=== PATIENT | male | born 1945 | race Caucasian/White ===

== ENCOUNTER 2018-01-14 11:38 | Inpatient (IN) | payer OTHER, MEDICARE ==
[~2018-01-14] VITALS: Ht 180.3 cm; Wt 94.8 kg
[~2018-01-14 11:38] MED LIST: ASPIRIN EC325 M2 PO; ATORVASTATIN CA80 M1 PO; FIBERCON625 M1 PO; LEVEMIR100 UNIT/1 SC; LORAZEPAM0.5 M1 PO; METFORMIN HCL750 M1 PO; METOPROLOL SUC100 M2 PO; NOVOLOG100 UNIT/2 SC; REGLAN10 M1 PO; SYMBICORT 16010.2 GM INH; XOPENEX HFA15 GM INH; ZOLPIDEM TARTRA10 M1 PO
--- NOTE | 2018-01-14 12:14 | ED GI/GU/ABDOMINAL COMPLAINT ---
History of Present Illness General Chief Complaint: Low Back Pain/Injury Stated Complaint: SENT FROM WALK IN FROM WALK IN FOR LT LOWER B/P Source: patient Exam Limitations: no limitations Vital Signs & Intake/Output Vital Signs & Intake/Output Vital Signs Date Time Temp Pulse Resp B/P B/P Pulse O2 O2 Flow FiO2 Mean Ox Delivery Rate 01/15 0100 150/78 01/14 2322 62 174/100 01/14 2308 98.7 62 18 174/100 97 01/14 1905 98.7 72 18 154/73 97 Room Air Room Air 01/14 1837 97.5 67 18 133/68 97 Room Air Room Air 01/14 1600 98.3 66 18 196/88 01/14 1415 98.3 66 18 208/92 98 Room Air 01/14 1148 96.3 64 18 166/80 97 Room Air ED Intake and Output 01/15 0000 01/14 1200 Intake Total 3100 Output Total 220 Balance 2880 Intake, IV 3000 Intake, Oral 100 Output, Urine 220 Patient 215 lb 210 lb Weight Weight Reported by Patient Measurement Method Allergies Coded Allergies: No Known Allergies (03/12/16) Reconcile Medications Aspirin (Ecotrin*) 325 MG TABLET.DR 1 TAB PO DAILY HEART/BLOOD (Reported) Atorvastatin Calcium 80 MG TABLET 0.5 TAB PO DAILY CHOLESTEROL (Reported) Budesonide/Formoterol Fumarate (Symbicort 160-4.5 Mcg Inhaler) 10.2 GM HFA.AER.AD 2 PUF INH BID COPD (Reported) Calcium Polycarbophil (Fibercon) 625 MG TABLET 1 TAB PO DAILY SUPPLEMENT ( Reported) Insulin Aspart (Novolog) 100 UNIT/1 ML VIAL DIABETES (Reported) Insulin Detemir (Levemir) 100 UNIT/1 ML VIAL 10 UNITS SC QAM DIABETES ( Reported) Levalbuterol Tartrate (Xopenex Hfa) 15 GM HFA.AER.AD 2 PUF INH PRN COPD ( Reported) Lorazepam 0.5 MG TABLET 1 TAB PO BIDP PRN SLEEP (Reported) Metformin HCl (Metformin HCl ER) 750 MG TAB.ER.24H 2 TAB PO QPM DIABETES ( Reported) Metoclopramide HCl (Reglan) 10 MG TABLET 1 TAB PO BID GASTOPARESIS (Reported) 30 minutes before meals and bedtime Metoprolol Succinate 100 MG TAB.ER.24H 1 TAB PO DAILY HEART/BP (Reported) Zolpidem Tartrate 10 MG TABLET 1 TAB PO QPMP SLEEP (Reported) Triage Note: PT TO ER C/C L FLANK PAIN AND NAUSEA X 1 DAY. DENIES URINARY PAIN/FREQUENCY. DENIES HEMATURIA. Triage Nurses Notes Reviewed? yes Onset: Abrupt Duration: day(s): (1), constant, continues in ED, getting worse Timing: single episode today Quality/Severity: cramping Severity Numbers: 8 Location: left flank, left upper quadrant Radiation: back Activities at Onset: sleep Prior Abdominal Problems: none Past Sexual History: Unobtainable at this time No Modifying Factors: none Modifying Factors: Worsens With: movement, palpation. Associated Symptoms: abdominal pain, nausea/vomiting HPI: 72-year-old male past medical history of hypertension, hyponatremia, diabetes, coronary artery disease, COPD presents for evaluation of left flank pain and nausea vomiting. Patient states symptoms started last night. Woke him up from sleep. The pain is located in the left flank and radiates into the left abdomen and left back. Pain described as cramping that is intermittently sharp. Associated with nausea and vomiting. He reports he took Tylenol without improvement. No fevers urinary symptoms hematuria chest pain shortness of breath. No history of kidney stones. There is no trauma no numbness tingling no bowel or bladder dysfunction. No difficulty urinating. (Velasquez Napier) Past History Travel History Traveled to [place] past 21 day No Medical History Any Pertinent Medical History? see below for history Neurological: RESTLESS LEG EENT: SLEEP APNEA Cardiovascular: CAD, hypertension, hyperlipidemia, FEM/POP BYPASS BILATERAL PVC 'S Respiratory: COPD, emphysema, LUNG NODULES Gastrointestinal: GERD, COLON POLYPS GASTROPARESIS Renal: benign prost hyperplasia Musculoskeletal: osteoarthritis Psychiatric: insomnia Endocrine: diabetes Blood Disorders: anemia Surgical History Surgical History: non-contributory Psychosocial History What is your primary language Samoan Tobacco Use: Quit >30 days ago Family History Hx Contributory? No (Velasquez Napier) Review of Systems Review of Systems Constitutional: Reports: no symptoms. EENTM: Reports: no symptoms. Respiratory: Reports: no symptoms. Cardiovascular: Reports: no symptoms. GI: Reports: see HPI, abdominal pain, nausea, vomiting. Genitourinary: Reports: no symptoms. Musculoskeletal: Reports: see HPI, back pain. Skin: Reports: no symptoms. Neurological/Psychological: Reports: no symptoms. Hematologic/Endocrine: Reports: no symptoms. Immunologic/Allergic: Reports: no symptoms. All Other Systems: Reviewed and Negative (Rakesh DIA,Velasquez) Physical Exam Physical Exam General Appearance: well developed/nourished, no apparent distress, alert, awake Head: atraumatic, normal appearance Eyes: Bilateral: normal appearance, PERRL, EOMI, normal inspection. Ears, Nose, Throat, Mouth: hearing grossly normal, moist mucous membrane Neck: normal inspection, supple, full range of motion Respiratory: normal breath sounds, chest non-tender, no respiratory distress, lungs clear Cardiovascular: regular rate/rhythm, normal peripheral pulses Peripheral Pulses: 2+ radial (R), 2+ radial (L) Gastrointestinal: normal bowel sounds, soft, no organomegaly, tenderness (LEFT FLANK) Back: normal inspection, normal range of motion, LUMBAR PARAspinous muscles tender to palpation on the left Extremities: normal range of motion Neurologic/Psych: no motor/sensory deficits, awake, alert, oriented x 3, normal gait, normal mood/affect Skin: intact, normal color, warm/dry Core Measures ACS in differential dx? No Sepsis Present: No Sepsis Focused Exam Completed? No (Rakesh DIA,Velasquez) Progress Differential Diagnosis: AAA, appendicitis, biliary colic, bowel obstruction, cholecystitis, diverticulitis, gastritis, inflamm bowel dis, pancreatitis, peptic ulcer, PUD/GERD, pyelonephritis, SBO, ureterolithiasis, urinary retention , urethritis, UTI/pyelo Plan of Care: Orders Procedure Date/time Status Consistent Carbohydrate 1 01/15 B Active CBC WITHOUT DIFFERENTIAL 01/15 0600 Active BASIC ELECTROLYTES PLUS BUN&CR 01/15 0600 Active Change service to 01/15 0108 Active BLOOD CULTURE 01/14 2338 Active FingerStick- Glucose 01/14 2309 Complete Weight 01/14 2308 Active Vital Signs 01/14 2252 Active Teach/Educate 01/15 2252 Active Pain Treatment and Response 01/15 2252 Active Nutritional Intake, Monitor 01/15 2252 Active Isolation 01/15 2252 Active Intake & Output 01/15 2252 Active Patient Care Conference 01/15 2252 Active Activity/Ambulation 01/15 2252 Active Pathway - chart 01/14 2218 Active House Staff 01/14 2218 Active Patient Data 01/14 2218 Active Code Status 01/14 2218 Active CBC WITHOUT DIFFERENTIAL 01/143 Complete BASIC ELECTROLYTES PLUS BUN&CR 01/14 214 Complete URINE COLLECTION FROM OR 01/14 2108 Active LACTIC ACID 01/14 1650 Complete Bates, Insertion/Removal/Asses 01/14 1627 Complete CULTURE,URINE 01/14 162 Active Add-on Test (ER Only) 01/14 1348 Active LACTIC ACID 01/14 1227 Complete URINALYSIS 01/14 1211 Complete TROPONIN LEVEL 01/14 1211 Complete LIPASE 01/14 1211 Complete COMPREHENSIVE METABOLIC PANEL 01/14 1211 Complete CBC WITHOUT DIFFERENTIAL 01/14 1211 Complete EKG 01/14 1211 Active Intake & Output 01/14 1200 Active VTE Mechanical Prophylaxis 01/14 UNK Active FingerStick- Glucose 01/14 UNK Active Current Medications Sig/Juhi Start time Last Medication Dose Stop Time Status Admin Atorvastatin Calcium 40 MG 1700 01/15 1700 AC (Lipitor) Aspirin Buffered 325 MG DAILY 01/15 0900 AC (Ecotrin) Insulin Detemir 5 UNITS BID 01/15 0900 AC (Levemir) Lorazepam 0.5 MG BID PRN 01/15 0900 AC 01/14 (Ativan) 01/22 0859 2325 Metoclopramide HCl 10 MG BID 01/15 0900 AC (Reglan) Metoprolol Succinate 100 MG DAILY 01/15 0900 AC (Toprol Xl) Insulin Aspart 0 TIDAC 01/15 0800 AC (NovoLOG) Heparin Sodium 5,000 UNIT Q8 01/15 0600 AC (Porcine) Morphine Sulfate 2 MG Q6P PRN 01/14 2345 AC (MORPHINE SULFATE) Ondansetron HCl 4 MG Q6P PRN 01/14 2345 AC (Zofran) Ceftriaxone Sodium 1,000 MG DAILY 01/14 2330 AC 01/14 (Rocephin) 2322 Sodium Chloride 1,000 ML Q20H 01/14 2300 AC 01/14 (Normal Saline 0.9%) 01/15 1219 2312 Morphine Sulfate 2 MG Q4 PRN 01/14 2230 AC (MORPHINE SULFATE) Laboratory Tests 01/15/18 0640: Sodium Pending, Potassium Pending, Chloride Pending, Carbon Dioxide Pending, Anion Gap Pending, BUN Pending, Creatinine Pending, BUN/Creatinine Ratio Pending , CBC w Diff Pending, WBC Pending, RBC Pending, Hgb Pending, Hct Pending, MCV Pending, MCH Pending, MCHC Pending, RDW Pending, Plt Count Pending, MPV Pending 01/15/18 0050: Lactic Acid 1.4 01/15/18 005: Anion Gap 12, Estimated GFR 23 L, BUN/Creatinine Ratio 17.4, CBC w Diff NO MAN DIFF REQ, RBC 3.73 L, MCV 84.6, MCH 28.5, MCHC 33.6, RDW 14.0, MPV 8.8, Gran % 88.1 H, Lymphocytes % 7.5 L, Monocytes % 4.0, Eosinophils % 0.2, Basophils % 0.2, Absolute Granulocytes 7.3 H, Absolute Lymphocytes 0.6 L, Absolute Monocytes 0.3, Absolute Eosinophils 0, Absolute Basophils 0 01/14/18 1845: Urinalysis LIGHT H, Urine Color YEL, Urine Clarity HAZY H, Urine pH 6.0, Ur Specific [place] 1.025, Urine Protein 100 H, Urine Ketones NEG, Urine Nitrite NEG, Urine Bilirubin NEG, Urine Urobilinogen 0.2, Ur Leukocyte Esterase NEG, Ur Microscopic SEDIMENT EXAMINED, Urine RBC 25-50 H, Urine WBC 1-3 H, Ur Epithelial Cells FEW, Urine Hemoglobin LARGE H, Urine Glucose NEG 01/14/18 1227: Anion Gap 16, Estimated GFR 22 L, BUN/Creatinine Ratio 16.8, Glucose 175 H, Lactic Acid 1.8, Calcium 9.7, Total Bilirubin 0.4, AST 24, ALT 30, Alkaline Phosphatase 79, Troponin I < 0.01, Total Protein 8.0, Albumin 4.5, Globulin 3.5, Albumin/Globulin Ratio 1.3, Lipase 196, CBC w Diff NO MAN DIFF REQ, RBC 4.41 L, MCV 85.7, MCH 27.7, MCHC 32.3 L, RDW 13.9, MPV 8.3, Gran % 82.6 H, Lymphocytes % 8.5 L, Monocytes % 8.2, Eosinophils % 0.4, Basophils % 0.3, Absolute Granulocytes 8.6 H, Absolute Lymphocytes 0.9 L, Absolute Monocytes 0.9 H, Absolute Eosinophils 0, Absolute Basophils 0 Microbiology 01/15 50 BLOOD: Blood Culture - RECD 01/15 50 BLOOD: Blood Culture - RECD 01/15 2108 URINE OR: Urine Culture - RECD 01/14 1845 URINE ROUT: Urine Culture - RECD Patient seen and evaluated. He is reporting left flank pain and nausea and vomiting. He was sent in from an urgent care. Urgent care did a urinalysis which shows hematuria. Patient does appear to be intermittent pain. He took Tylenol without improvement. He was given 15 mg of IM Toradol. We'll check basic labs and a CT scan the pelvis look for kidney stones. Zofran for nausea. Blood work is back and shows evidence of acute kidney injury. Creatinine is 2.8 which is increased to 2 times His normal. Potassium is 5.8. No EKG changes. Calcium gluconate and Kayexalate ordered. Patient also receive IV fluids. Waiting on CT scan results. Patient is feeling much better after medications. He is resting comfortably. CT scan shows a large kidney stone in the left ureter. 1 cm in greatest dimension. Causing mild hydronephrosis.. Spoke with Dr. Crawley from urology who will take the patient to the OR for stenting. Patient is not able to give a urine yet. He feels like he needs to be but can' t. As a history of BPH. A Bates was placed to relieve possible obstruction however was found there is only small amount of urine in the bladder. Additional fluids ordered. Patient waiting to go the OR. PT Was taken to the OR with Dr. Crawley for stent placement. Diagnostic Imaging: Viewed by Me: CT Scan. Discussed w/RAD: CT Scan. Radiology Impression: PATIENT: SHO CISSE PRESENT AGE: 72 PATIENT ACCOUNT NO: [id number] : 45 LOCATION: [facility] ORDERING PHYSICIAN: Velasquez DIA SERVICE DATE: 01/14/18 EXAM TYPE: CAT - CT ABD & PELVIS W/O IV CONTRAS EXAMINATION: CT ABDOMEN AND PELVIS WITHOUT CONTRAST CLINICAL INFORMATION: Left lower back pain and hematuria COMPARISON: None TECHNIQUE: Multidetector volumetric imaging was performed from the superior aspect of the liver through the pubic symphysis. Sagittal and coronal reformatted images were obtained on the technologist's workstation. DLP: 633 mGy -cm FINDINGS: LUNG BASES: No acute findings. Atherosclerotic calcifications of coronary arteries and thoracic aorta. No pericardial or pleural effusion. LIVER, GALLBLADDER, AND BILIARY TREE: Unremarkable. PANCREAS: Unremarkable. SPLEEN: Unremarkable. ADRENAL GLANDS: Unremarkable. KIDNEYS AND URETERS: Bilateral perinephric edema. 0.9 cm hyperdense cortical lesion at the upper pole the right kidney has attenuation of approximately 80 Hounsfield units, consistent with a hyperdense cyst. No right renal calculi. There are cortical cysts at the posterior aspect of the interpolar region of the left kidney. Mild left hydronephrosis is caused by a 0.5 x 0.7 x 1 cm calculus, attenuation of 757 HU, of the ureteropelvic junction. The mid to distal left ureter is unremarkable. BLADDER: Unremarkable. GASTROINTESTINAL TRACT: Stomach is grossly unremarkable. Bowel loops are normal in caliber. Mild diverticulosis of the sigmoid colon. Appendix is normal. No ascites or pneumoperitoneum. ABDOMINAL WALL: Unremarkable. LYMPH NODES: Normal. VASCULAR: The atherosclerotic infrarenal abdominal aorta measures up to 2.8 cm AP diameter (sagittal reformatted image 77 of 143). PELVIC VISCERA: Prostate gland is grossly unremarkable. No pelvic free fluid. OSSEOUS STRUCTURES: There are hypertrophic degenerative changes of the spine. No suspicious bone lesions. IMPRESSION: Mild left hydronephrosis and perinephric edema caused by an obstructing 0.5 x 0.7 x 1 cm calculus of the ureteropelvic junction. DICTATED BY: Arjun Contreras MD DATE/TIME DICTATED:01/14 LENS FABRICATING MACHINE TENDER:RODY DATE/TIME TRANSCRIBED:01/14/181357 CONFIDENTIAL, DO NOT COPY WITHOUT APPROPRIATE AUTHORIZATION. Initial ED EKG: Sinus rhythm, probable left atrial abnormality, right bundle branch block, age indeterminate inferior infarct (Velasquez Napier) Departure Departure Disposition: STILL A PATIENT Condition: Stable Clinical Impression Primary Impression: Nephrolithiasis Secondary Impressions: Acute kidney injury, Hyperkalemia Referrals: Karri Martinez DO (PCP/Family) Departure Forms: Customer Survey General Discharge Information OR/GI Note Spoke With: Susan Crawley MD ED Treatment Decision: SHO CISSE requires urgent operative management or an emergent procedure that cannot be performed in the Emergency Room setting. Stenting of the left ureter. Patient has a 1 cm kidney stone left ureter causing mild hydronephrosis Transport To: [facility] (Velasquez Napier) PA/FENCE POST DRIVER Co-Sign Statement Statement: ED Attending supervision documentation- X I saw and evaluated the patient. I have also reviewed all the pertinent lab results and diagnostic results. I agree with the findings and the plan of care as documented in the PA's/FENCE POST DRIVER's documentation. L flank pain with obstructing stone 1 cm [] I have reviewed the ED Record and agree with the PA's/FENCE POST DRIVER's documentation. [] Additions or exceptions (if any) to the PAs/FENCE POST DRIVER's note and plan are summarized below: [] (Omar MCCOY,Blake)
[2018-01-14 12:39] LABS: ABSOLUTE BASOPHIL COUNT 0 /CUMM (0.0-0.2); ABSOLUTE EOSINOPHIL COUNT 0 /CUMM (0.0-0.7); ABSOLUTE GRANULOCYTE CT 8.6 /CUMM (1.4-6.5); ABSOLUTE LYMPH COUNT 0.9 /CUMM (1.2-3.4); ABSOLUTE MONOCYTE COUNT 0.9 /CUMM (0.10-0.60); BASOPHIL % 0.3 % (0.0-2.0); EOSINOPHIL % 0.4 % (0-5); HEMATOCRIT 37.8 % (42-52); MEAN CORPUSCULAR HGB 27.7 PG (27.0-31.0); MEAN CORPUSCULAR HGB CONC 32.3 G/DL (33.0-37.0); MEAN CORPUSCULAR VOLUME 85.7 FL (80.0-94.0); MEAN PLATELET VOLUME 8.3 FL (7.4-10.4); PLATELET COUNT 216 /CUMM (130-400); RBC DISTRIBUTION WIDTH 13.9 % (11.5-14.5); RED BLOOD CELL CT 4.41 /CUMM (4.70-6.10); WHITE BLOOD CELL COUNT 10.4 /CUMM (4.8-10.8)
[2018-01-14 12:40] LABS: GRANULOCYTE % 82.6 % (42.2-75.2)
--- NOTE | 2018-01-14 14:10 | CT SCAN REPORT ---
EXAMINATION: CT ABDOMEN AND PELVIS WITHOUT CONTRAST CLINICAL INFORMATION: Left lower back pain and hematuria COMPARISON: None TECHNIQUE: Multidetector volumetric imaging was performed from the superior aspect of the liver through the pubic symphysis. Sagittal and coronal reformatted images were obtained on the technologist's workstation. DLP: 633 mGy-cm FINDINGS: LUNG BASES: No acute findings. Atherosclerotic calcifications of coronary arteries and thoracic aorta. No pericardial or pleural effusion. LIVER, GALLBLADDER, AND BILIARY TREE: Unremarkable. PANCREAS: Unremarkable. SPLEEN: Unremarkable. ADRENAL GLANDS: Unremarkable. KIDNEYS AND URETERS: Bilateral perinephric edema. 0.9 cm hyperdense cortical lesion at the upper pole the right kidney has attenuation of approximately 80 Hounsfield units, consistent with a hyperdense cyst. No right renal calculi. There are cortical cysts at the posterior aspect of the interpolar region of the left kidney. Mild left hydronephrosis is caused by a 0.5 x 0.7 x 1 cm calculus, attenuation of 757 HU, of the ureteropelvic junction. The mid to distal left ureter is unremarkable. BLADDER: Unremarkable. GASTROINTESTINAL TRACT: Stomach is grossly unremarkable. Bowel loops are normal in caliber. Mild diverticulosis of the sigmoid colon. Appendix is normal. No ascites or pneumoperitoneum. ABDOMINAL WALL: Unremarkable. LYMPH NODES: Normal. VASCULAR: The atherosclerotic infrarenal abdominal aorta measures up to 2.8 cm AP diameter (sagittal reformatted image 77 of 143). PELVIC VISCERA: Prostate gland is grossly unremarkable. No pelvic free fluid. OSSEOUS STRUCTURES: There are hypertrophic degenerative changes of the spine. No suspicious bone lesions. IMPRESSION: Mild left hydronephrosis and perinephric edema caused by an obstructing 0.5 x 0.7 x 1 cm calculus of the ureteropelvic junction.
--- NOTE | 2018-01-14 19:34 | Cons- Urology ---
General Information and HPI Consulting Request Date of Consult: 01/14/18 Requested By: Chema Reason for Consult: left flank pain Source of Information: patient Exam Limitations: no limitations History of Present Illness: 72yo male with a PMH hyperlipidemia, hypertension, diabetes, coronary artery disease and gastroesophageal reflux with no history of nephrolithiasis who presented to the ER due to severe left flank pain 10 out of 10 with nausea and vomiting only in the ER after receiving pain medicine. He had a CAT scan which showed a 5 mm UPJ obstructing stone. He has never had kidney stones before and admits to only drinking coffee. His creatinine was elevated at 2.2 as well as his potassium. He was placed with the Bates and only 2 ounces was emptied. He has no history of benign prostatic hypertrophy or any other urologic issues. He does admit to smoking a pack a day for 50 years and quit 3 years ago however. He has never been to a urologist as he has had no prostate or kidney stone issues. He does admit to a penile cyst that does not bother him. Allergies/Medications Allergies: Coded Allergies: No Known Allergies (03/12/16) Home Med List: Aspirin (Ecotrin*) 325 MG TABLET.DR 1 TAB PO DAILY HEART/BLOOD (Reported) Atorvastatin Calcium 80 MG TABLET 0.5 TAB PO DAILY CHOLESTEROL (Reported) Budesonide/Formoterol Fumarate (Symbicort 160-4.5 Mcg Inhaler) 10.2 GM HFA.AER.AD 2 PUF INH BID COPD (Reported) Calcium Polycarbophil (Fibercon) 625 MG TABLET 1 TAB PO DAILY SUPPLEMENT ( Reported) Insulin Aspart (Novolog) 100 UNIT/1 ML VIAL DIABETES (Reported) Insulin Detemir (Levemir) 100 UNIT/1 ML VIAL 10 UNITS SC QAM DIABETES ( Reported) Levalbuterol Tartrate (Xopenex Hfa) 15 GM HFA.AER.AD 2 PUF INH PRN COPD ( Reported) Lorazepam 0.5 MG TABLET 1 TAB PO BIDP PRN SLEEP (Reported) Metformin HCl (Metformin HCl ER) 750 MG TAB.ER.24H 2 TAB PO QPM DIABETES ( Reported) Metoclopramide HCl (Reglan) 10 MG TABLET 1 TAB PO BID GASTOPARESIS (Reported) 30 minutes before meals and bedtime Metoprolol Succinate 100 MG TAB.ER.24H 1 TAB PO DAILY HEART/BP (Reported) Zolpidem Tartrate 10 MG TABLET 1 TAB PO QPMP SLEEP (Reported) Current Medications: Current Medications Sig/Juhi Start time Last Medication Dose Route Stop Time Status Admin Calcium Gluconate 0 .STK-MED ONE 01/14 1731 DC IV Calcium Gluconate 1 GM ONCE ONE 01/14 1700 DC 01/14 Sodium Chloride 100 ML IV 01/14 1759 1742 Hydralazine HCl 0 .STK-MED ONE 01/14 1613 DC .ROUTE Hydralazine HCl 10 MG ONCE ONE 01/14 1445 DC 01/14 IV 01/14 1446 1600 Ketorolac 0 .STK-MED ONE 01/14 1223 DC Tromethamine .ROUTE Ketorolac 15 MG ONE ONE 01/14 1215 DC 01/14 Tromethamine IM 01/14 1216 1252 Ondansetron HCl 0 .STK-MED ONE 01/14 1223 DC PO Ondansetron HCl 4 MG ONCE ONE 01/14 1215 DC 01/14 PO 01/14 1216 1252 Sodium Chloride 1,000 ML BOLUS ONE 01/14 1830 DC 01/14 IV 01/14 1929 1852 Sodium Chloride 1,000 ML BOLUS ONE 01/14 1345 DC 01/14 IV 01/14 1444 1357 Sodium Chloride 1,000 ML BOLUS ONE 01/14 1230 DC 01/14 IV 01/14 1329 1252 Sodium Polystyrene 0 .STK-MED ONE 01/14 1731 DC Sulfonate .ROUTE Sodium Polystyrene 60 ML ONCE ONE 01/14 1700 DC 01/14 Sulfonate PO 01/14 1701 1742 Past History Medical History Neurological: NONE, RESTLESS LEG EENT: SLEEP APNEA Cardiovascular: CAD, hypertension, hyperlipidemia, FEM/POP BYPASS BILATERAL PVC 'S Respiratory: COPD, emphysema, LUNG NODULES Gastrointestinal: GERD, COLON POLYPS GASTROPARESIS Hepatic: NONE Renal: NONE (CRI) Musculoskeletal: osteoarthritis Psychiatric: insomnia Endocrine: diabetes Blood Disorders: anemia Cancer(s): NONE 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 Home Who Do You Live With? spouse Services at Home: None Primary Language: Swedish Smoking Status: Former Smoker (1ppd for 50 yrs) ETOH Use: occasional use Illicit Drug Use: denies illicit drug use Functional Ability ADLs Independent: dressing, eating, toileting, bathing. Ambulation: independent IADLs Independent: shopping, housework, finances, food prep, telephone, transportation , medication admin. Employment History Employment: Retired Retired? yes Review of Systems Review of Systems Constitutional: Reports: see HPI. EENTM: Reports: no symptoms. Cardiovascular: Reports: no symptoms. Respiratory: Reports: no symptoms. GI: Reports: no symptoms. Genitourinary: Reports: no symptoms. Musculoskeletal: Reports: back pain. Skin: Reports: no symptoms. Neurological/Psychological: Reports: no symptoms. Hematologic/Endocrine: Reports: no symptoms. Immunologic/Allergic: Reports: no symptoms. Exam & Diagnostic Data Vital Signs and I&O Vital Signs Date Time Temp Pulse Resp B/P B/P Pulse O2 O2 Flow FiO2 Mean Ox Delivery Rate 01/14 1905 98.7 72 18 154/73 97 Room Air Room Air 01/14 1837 97.5 67 18 133/68 97 Room Air Room Air 01/14 1600 98.3 66 18 196/88 01/14 1415 98.3 66 18 208/92 98 Room Air 01/14 1148 96.3 64 18 166/80 97 Room Air Intake & Output 01/14 1600 01/14 0800 01/14 0000 01/13 1600 01/13 0800 01/13 0000 Intake Total 2000 Output Total Balance 2000 Intake, IV 2000 Patient 95.254 kg Weight Weight Reported by Patient Measurement Method Physical Exam General Appearance: well developed/nourished, no apparent distress, alert, awake , comfortable Head: atraumatic, normal appearance Eyes: Bilateral: normal appearance. Ears, Nose, Throat: normal pharynx Neck: normal inspection Respiratory: no respiratory distress Gastrointestinal: soft, non-tender Rectal: deferred Back: normal inspection Extremities: normal inspection Neurologic/Psych: awake, alert, oriented x 3 Cranial Nerves: normal hearing, normal speech Skin: intact, normal color, warm/dry Reproductive: Normal male genitalia (penile cyst) Last 24 Hours of Labs: Laboratory Tests 01/14 01/14 1845 1227 Chemistry Sodium (137 - 145 mmol/L) 137 Potassium (3.5 - 5.1 mmol/L) 5.8 H Chloride (98 - 107 mmol/L) 100 Carbon Dioxide (22 - 30 mmol/L) 22 Anion Gap (5 - 16) 16 BUN (9 - 20 mg/dL) 47 H Creatinine (0.7 - 1.2 mg/dL) 2.8 H Estimated GFR (>60 ml/min) 22 L BUN/Creatinine Ratio (7 - 25 %) 16.8 Glucose (65 - 99 mg/dL) 175 H Lactic Acid (0.7 - 2.1 mmol/L) 1.8 Calcium (8.4 - 10.2 mg/dL) 9.7 Total Bilirubin (0.2 - 1.3 mg/dL) 0.4 AST (17 - 59 U/L) 24 ALT (21 - 72 U/L) 30 Alkaline Phosphatase (< 127 U/L) 79 Troponin I (<0.11 ng/ml) < 0.01 Total Protein (6.3 - 8.2 g/dL) 8.0 Albumin (3.5 - 5.0 g/dL) 4.5 Globulin (1.9 - 4.2 gm/dL) 3.5 Albumin/Globulin Ratio (1.1 - 2.2 %) 1.3 Lipase (23 - 300 U/L) 196 Hematology CBC w Diff NO MAN DIFF REQ WBC (4.8 - 10.8 /CUMM) 10.4 RBC (4.70 - 6.10 /CUMM) 4.41 L Hgb (14.0 - 18.0 G/DL) 12.2 L Hct (42 - 52 %) 37.8 L MCV (80.0 - 94.0 FL) 85.7 MCH (27.0 - 31.0 PG) 27.7 MCHC (33.0 - 37.0 G/DL) 32.3 L RDW (11.5 - 14.5 %) 13.9 Plt Count (130 - 400 /CUMM) 216 MPV (7.4 - 10.4 FL) 8.3 Gran % (42.2 - 75.2 %) 82.6 H Lymphocytes % (20.5 - 51.1 %) 8.5 L Monocytes % (1.7 - 9.3 %) 8.2 Eosinophils % (0 - 5 %) 0.4 Basophils % (0.0 - 2.0 %) 0.3 Absolute Granulocytes (1.4 - 6.5 /CUMM) 8.6 H Absolute Lymphocytes (1.2 - 3.4 /CUMM) 0.9 L Absolute Monocytes (0.10 - 0.60 /CUMM) 0.9 H Absolute Eosinophils (0.0 - 0.7 /CUMM) 0 Absolute Basophils (0.0 - 0.2 /CUMM) 0 Urines Urinalysis LIGHT H Urine Color (YEL,AMB,STR) YEL Urine Clarity (CLEAR) HAZY H Urine pH (5.0 - 8.0) 6.0 Ur Specific [place] (1.001 - 1.035) 1.025 Urine Protein (NEG,<30 MG/DL) 100 H Urine Ketones (NEG) NEG Urine Nitrite (NEG) NEG Urine Bilirubin (NEG) NEG Urine Urobilinogen (0.1 - 1.0 EU/dl) 0.2 Ur Leukocyte Esterase (NEG) NEG Ur Microscopic SEDIMENT EXAMINED Urine RBC (0 - 5 /HPF) 25-50 H Urine WBC (0 - 2 /HPF) 1-3 H Ur Epithelial Cells (NONE,FEW) FEW Urine Hemoglobin (NEG) LARGE H Urine Glucose (N MG/DL) NEG Imaging Results: CT scan with left 5mm UPJ stone with mild hydronephrosis Assessment/Plan Assessment/Plan This 72-year-old male with multiple medical problems who presented to the ER with left flank pain 10 out of 10 with nausea. This is his first renal colic episode and admits to only drinking coffee. He was given the risks benefits and alternatives of ureteroscopy with laser lithotripsy and stent placement. He is a severely dehydrated with elevated creatinine and potassium with minimal urine output all day. He had a Bates catheter placed and only 2 ounces were emptied. He was consented for left ureteroscopy with laser lithotripsy and stent placement all the risks benefits and alternatives were given. Consent was signed after questions were answered. Consult Acknowledgment - Thank you for your consult request.
--- NOTE | 2018-01-14 19:36 | Operative Report ---
Operative/Inv Procedure Report Surgery Date: 01/14/18 Name of Procedure: left ureteroscopy with stent placement Pre-Operative Diagnosis: left 10mm UPJ stone Post-Operative Diagnosis: Large bladder stone and left 1 cm UPJ stone with pus behind it Estimated Blood Loss: linnea Surgeon/Shake Splitter: Susan Crawley MD Anesthesia: laryngeal mask airway Drains: 6x26cm stent Specimens: urine culture from renal pelvis Complications: none Condition: stable Operative Indication: left renal colic severe and elevated CR and dehydrated with obstructing left UPJ stone Operative/Procedure Note Note: This is a 72-year-old male Fritz Sykes who was in the ER due to severe left flank pain with nausea. He has no history of kidney stones but on CAT scan was found to have a 1 cm UPJ stone with mild hydro-. He admits to only drinking coffee and minimal water. He denies any history of urinary tract infections or benign prostatic hypertrophy. Given his stone size, pain level and abnormal labs specifically, elevated creatinine and elevated potassium with multiple comorbidities it was deemed necessary to place a left ureteral stent at the least and possibly treat the kidney stone. He was given the risks benefits and alternatives of doing this and all questions were answered. He signed a consent and wished to proceed. He was taken to the operating room placed on the operating table in the supine position. Timeout was performed. IV Kefzol was given. LMA was started. He was placed in the dorsal lithotomy position and prepped and draped in the standard sterile fashion. Cystoscopy was performed and the bladder was globally inspected. He had a markedly diseased bladder with grade 3 trabeculation an abnormally located ureteral orifices. They were laterally displaced. The left ureteral orifices was attempted to be cannulated with a solo guidewire. However it repeatedly bent and would not move beyond the ureteral orifice. As a result a semirigid ureteroscope was then placed into the bladder and at the ureteral orifice it was gently placed into the ureteral orifice. It was successful and the ureteroscope was able to be passed up the distal ureter once the guidewire was placed through the ureteroscope into the renal pelvis with fluoroscopic guidance. Once this was done the semirigid ureteroscope was removed and a dual- lumen catheter was attempted to be passed to place a second wire. However the dual-lumen was not able to traverse the ureteral orifice. As result the inner sheath of the ureteral access sheath 25 cm was then placed over this solo wire and this was able to be placed under fluoroscopic guidance without difficulty. It was left in place to dilate the ureteral orifice at that. After doing so the inner sheath was placed into the outer sheath and then placed back up into the ureter and the ureteral orifice was dilated for a few minutes. The inner sheath and the wire was removed and the flexible digital ureteroscope was then placed through the sheath into the renal pelvis. The large white 10 mm stone was encountered at the UPJ and the scope moved beyond it into the renal pelvis. However it was so cloudy with pus and blood it was not able to be used to visualize the individual calyces. A urine culture was taken with the syringe through the flexible ureteroscope and this was sent for urine culture. As result a wire was placed at this time through the ureteroscope and the ureteroscope was removed along with the ureteral access sheath. The cystoscope was placed back in with the pusher of the stent and the wire was placed through this which through grade. This wire was then used with the cystoscope to place a 6 x 26 cm ureteral stent. This was done with fluoroscopic guidance it was seen to be in good position in the renal pelvis and so the wire was removed and distal control the stent was in the bladder. The stent was seen to be in good position fluoroscopically. The bladder was emptied. The patient was not left with the catheter. Patient tolerated the procedure well and was cleaned of the Betadine solution. He was transferred to the recovery room stable condition. Findings: Large whitish yellow bladder stone within a grade 3 trabeculated bladder Bladder lead placed left ureteral orifice with J hooking making it difficult to place a solo guidewire with the cystoscope left renal stone obstructing the UPJ with pus and blood behind it Discharge Disposition: PACU
--- NOTE | 2018-01-14 20:56 | PN- Urology ---
Subjective Subjective: Patient tolerated the cystoscopy ureteroscopy and stent placement. Patient is in no pain and awake after the surgery. Objective Vital Signs and I&Os Vital Signs Date Time Temp Pulse Resp B/P B/P Pulse O2 O2 Flow FiO2 Mean Ox Delivery Rate 01/14 1905 98.7 72 18 154/73 97 Room Air Room Air 01/14 1837 97.5 67 18 133/68 97 Room Air Room Air 01/14 1600 98.3 66 18 196/88 01/14 1415 98.3 66 18 208/92 98 Room Air 01/14 1148 96.3 64 18 166/80 97 Room Air Intake & Output 01/14 1600 01/14 0800 01/14 0000 01/13 1600 01/13 0800 01/13 0000 Intake Total 2000 Output Total Balance 1999 Intake, IV 2000 Patient 95.254 kg Weight Weight Reported by Patient Measurement Method Physical Exam: Patient is awake and alert lying in bed Abdomen soft nondistended nontender no Bates catheter in place Assessment/Plan Assessment/Plan Is a 72-year-old male with multiple comorbidities specifically diabetes, hypertension, hypercholesterolemia, coronary artery disease and gastroesophageal reflux disease with a left UPJ obstructing stone that was relieved with a left stent placement tonight. He had pus and blood behind the obstructing stone. Given his elevated creatinine and potassium due to severe dehydration and infected left urinary system, would recommend admission to medicine with IV fluid administered and antibiotics. Urine culture from the renal system was sent to the operating room. He should follow up with urology as an outpatient for elective stone surgery. This was explained to the patient and his daughter and son-in-law. He should remain on antibiotics for a full 10 days.
--- NOTE | 2018-01-14 21:02 | RADIOLOGY REPORT ---
EXAMINATION: C-arm imaging abdomen CLINICAL INDICATION: Left cyst cystoscopy, stent placement COMPARISON: CT abdomen pelvis 01/14/2018 TECHNIQUE: C-arm imaging abdomen. FINDINGS: Fluoroscopy time: 16 seconds Number of images: 1 Single spot view images obtained over the left renal area. Stent is not visualized in this spot image. No contrast present. The proximal left ureteral stone seen on the CT study of 01/14/2018 is not apparent IMPRESSION: Single spot view over the left renal area. No acute change.
--- NOTE | 2018-01-14 21:22 | History & Physical ---
Zoe Hay 01/14/182120: General Information and HPI MD Statement: I have seen and personally examined SHO CISSE and documented this H&P. The patient is a 72 year old M who presented with a patient stated chief complaint of [post-op]. Source of Information: patient Exam Limitations: no limitations History of Present Illness: 72yo male with a PMH hyperlipidemia on Lipitor, hypertension on metoprolol and lisinopril, diabetes on Levemir/insulin/metformin, coronary artery disease status post bypass on aspirin/Plavix, former smoker of one PPD for 50 years with pulmonary nodules and GERD with no history of nephrolithiasis/BPH presented to the ER due to severe left flank pain 10 out of 10 with nausea and vomiting. He had a CAT scan which showed a 5 mm UPJ obstructing stone, with elevated creatinine at 2.2 and elevated potassium at 5.8 around noon on 01/14. He was placed with the Bates and only 2 ounces was emptied. Patient was consented to the OR and underwent stent placement for left UPJ obstructing stone prior to this admission. Given patient's elevated creatinine and potassium due to severe dehydration and infected left urinary system, urology consult recommended admission to medicine with IV fluid administration and antibiotics. Urine culture was already sent from the OR. During our clinical interaction, patient denied fever/night sweat/weight change/ cough/SOB/Chest Pain/Palpitation/exercise intolerance/Abdominal pain/bowel movement abnormality, or other skin/musculoskeletal/neurological disorders/mood change/insomnia/dietary/appetite change. Allergies/Medications Allergies: Coded Allergies: No Known Allergies (03/12/16) Home Med list Aspirin (Ecotrin*) 325 MG TABLET.DR 1 TAB PO DAILY HEART/BLOOD (Reported) Atorvastatin Calcium 80 MG TABLET 0.5 TAB PO DAILY CHOLESTEROL (Reported) Budesonide/Formoterol Fumarate (Symbicort 160-4.5 Mcg Inhaler) 10.2 GM HFA.AER.AD 2 PUF INH BID COPD (Reported) Calcium Polycarbophil (Fibercon) 625 MG TABLET 1 TAB PO DAILY SUPPLEMENT ( Reported) Insulin Aspart (Novolog) 100 UNIT/1 ML VIAL DIABETES (Reported) Insulin Detemir (Levemir) 100 UNIT/1 ML VIAL 10 UNITS SC QAM DIABETES ( Reported) Levalbuterol Tartrate (Xopenex Hfa) 15 GM HFA.AER.AD 2 PUF INH PRN COPD ( Reported) Lorazepam 0.5 MG TABLET 1 TAB PO BIDP PRN SLEEP (Reported) Metformin HCl (Metformin HCl ER) 750 MG TAB.ER.24H 2 TAB PO QPM DIABETES ( Reported) Metoclopramide HCl (Reglan) 10 MG TABLET 1 TAB PO BID GASTOPARESIS (Reported) 30 minutes before meals and bedtime Metoprolol Succinate 100 MG TAB.ER.24H 1 TAB PO DAILY HEART/BP (Reported) Zolpidem Tartrate 10 MG TABLET 1 TAB PO QPMP SLEEP (Reported) Past History Travel History Traveled to [facility] past 21 day No Medical History Neurological: NONE, RESTLESS LEG EENT: SLEEP APNEA Cardiovascular: CAD, hypertension, hyperlipidemia, FEM/POP BYPASS BILATERAL PVC 'S Respiratory: COPD, emphysema, LUNG NODULES Gastrointestinal: GERD, COLON POLYPS GASTROPARESIS Hepatic: NONE Renal: NONE (CRI) Musculoskeletal: osteoarthritis Psychiatric: insomnia Endocrine: diabetes Blood Disorders: anemia Cancer(s): NONE HEAT TREAT INSPECTOR/Reproductive: NONE (penile cyst) Surgical History Surgical History: non-contributory (fem-bypass, 2 R, 1L) Past Family/Social History Psychosocial History Where do you live? Home Who Do You Live With? spouse Services at Home: None Primary Language: Palestinian Smoking Status: Former Smoker (1ppd for 50 yrs) ETOH Use: occasional use Illicit Drug Use: denies illicit drug use Functional Ability ADLs Independent: dressing, eating, toileting, bathing. Ambulation: independent IADLs Independent: shopping, housework, finances, food prep, telephone, transportation , medication admin. Sexual History Past Sexual History Unobtainable at this time Employment History Employment Retired Review of Systems Review of Systems Constitutional: Reports: see HPI. Exam & Diagnostic Data Last 24 Hrs of Vital Signs/I&O Vital Signs Date Time Temp Pulse Resp B/P B/P Pulse O2 O2 Flow FiO2 Mean Ox Delivery Rate 01/14 1905 98.7 72 18 154/73 97 Room Air Room Air 01/14 1837 97.5 67 18 133/68 97 Room Air Room Air 01/14 1600 98.3 66 18 196/88 01/14 1415 98.3 66 18 208/92 98 Room Air 01/14 1148 96.3 64 18 166/80 97 Room Air Intake & Output 01/14 1600 01/14 0800 01/14 0000 Intake Total 2000 Output Total Balance 1999 Intake, IV 2000 Patient 95.254 kg Weight Weight Reported by Patient Measurement Method Physical Exam General Appearance Alert, Oriented X3, Cooperative, No Acute Distress Skin No Rashes, No Breakdown, No Significant Lesion Skin Temp/Moisture Exam: Warm/Dry Sepsis Skin Exam (color): Normal for Ethnicity HEENT Atraumatic Neck Supple, No JVD Cardiovascular Regular Rate, with PVCs, systolic murmur Lungs Clear to Auscultation, Normal Air Movement Abdomen Soft, No Tenderness, No Hepatospenomegaly Neurological Normal Speech Extremities No Edema, Normal Pulses, No Tenderness/Swelling Last 24 Hrs of Labs/Hernandez: Laboratory Tests 01/14/181844: Urinalysis LIGHT H, Urine Color YEL, Urine Clarity HAZY H, Urine pH 6.0, Ur Specific [place] 1.025, Urine Protein 100 H, Urine Ketones NEG, Urine Nitrite NEG, Urine Bilirubin NEG, Urine Urobilinogen 0.2, Ur Leukocyte Esterase NEG, Ur Microscopic SEDIMENT EXAMINED, Urine RBC 25-50 H, Urine WBC 1-3 H, Ur Epithelial Cells FEW, Urine Hemoglobin LARGE H, Urine Glucose NEG 01/14/18 1227: Anion Gap 16, Estimated GFR 22 L, BUN/Creatinine Ratio 16.8, Glucose 175 H, Lactic Acid 1.8, Calcium 9.7, Total Bilirubin 0.4, AST 24, ALT 30, Alkaline Phosphatase 79, Troponin I < 0.01, Total Protein 8.0, Albumin 4.5, Globulin 3.5, Albumin/Globulin Ratio 1.3, Lipase 196, CBC w Diff NO MAN DIFF REQ, RBC 4.41 L, MCV 85.7, MCH 27.7, MCHC 32.3 L, RDW 13.9, MPV 8.3, Gran % 82.6 H, Lymphocytes % 8.5 L, Monocytes % 8.2, Eosinophils % 0.4, Basophils % 0.3, Absolute Granulocytes 8.6 H, Absolute Lymphocytes 0.9 L, Absolute Monocytes 0.9 H, Absolute Eosinophils 0, Absolute Basophils 0 Microbiology 01/15 2108 URINE OR: Urine Culture - COLB 01/14 1845 URINE ROUT: Urine Culture - RECD Assessment/Plan Assessment: 72yo male with a PMH hyperlipidemia on Lipitor, hypertension on metoprolol and lisinopril, diabetes on Levemir/insulin/metformin, coronary artery disease status post bypass on aspirin/Plavix, former smoker of one PPD for 50 years with pulmonary nodules and GERD with no history of nephrolithiasis/BPH presented to the ER due to severe left flank pain 10 out of 10 with nausea and vomiting. He had a CAT scan which showed a 5 mm UPJ obstructing stone, with elevated creatinine at 2.2 and elevated potassium at 5.8 around noon on 01/14. He was placed with the Bates and only 2 ounces was emptied. Patient was consented to the OR and underwent stent placement for left UPJ obstructing stone prior to this admission. Given patient's elevated creatinine and potassium due to severe dehydration and infected left urinary system, urology consult recommended admission to medicine with IV fluid administration and antibiotics. Urine culture was already sent from the OR. During our clinical interaction, patient denied fever/night sweat/weight change/ cough/SOB/Chest Pain/Palpitation/exercise intolerance/Abdominal pain/bowel movement abnormality, or other skin/musculoskeletal/neurological disorders/mood change/insomnia/dietary/appetite change. On admission from PACU, Vitals: Stable status post surgery, BP 154/73, afebrile, heart rate 72, room air -CBC before OR: No leukocytosis, H/H 12.2/37.8, -BMP before OR: NA 137, K5.8, CR 2.8 (baseline 120), -UA/Microbiology: Hematuria status post stent placement, urine protein 100 -Post OR outputting urine was tarry colored no clots -EKG: Sinus rhythm, with RBBB, and possible inferior old infarct -Ab CT: Mild left hydronephrosis and perinephric edema caused by an obstructing 0.5 x 0.7 x 1 cm calculus of the ureteropelvic junction. Problem list & Assessment: This is a 70-year-old male who presented after the OR event of stent placement, still with persistent hypertension of 155/64, and elevated creatinine of 2.8 compared to his baseline of 1.2-1.4 possibly secondary to the obstructive nephrolithiasis at the UPJ, and hyperkalemia without clear etiology but likely from his AK I, without obvious muscle/neurological disorders/EKG changes. Patient took the morning medication of metoprolol, but not lisinopril for his blood pressure. He also took his morning dose of 10 units Levemir prior to admission. #Hypertension #Hyperkalemia #EPIFANIO on CKD #Obstructive nephrolithiasis status post stent placement #PMH of hyperlipidemia on Lipitor, hypertension on metoprolol and lisinopril, diabetes on Levemir/insulin/metformin, coronary artery disease status post bypass on aspirin/Plavix, former smoker of one PPD for 50 years with pulmonary nodules and GERD Hospital Course: - Admit to telemetry for continuous cardiac monitoring meal as he was doing that before at home. hypotension stent placement. vomiting HFPEF -Pain management with morphine as needed DVT prophylaxis Heparin + ALPS Diabetic diet Full Code As Ranked By This Provider Problem List: 1. Nephrolithiasis Core Measures/Misc (06/05) Acute Coronary Syndrome ACS Diagnosis: No Congestive Heart Failure Congestive Heart Failure Diagnosis No Cerebrovascular Accident CVA/TIA Diagnosis: No VTE (View Protocol) VTE Risk Factors Age>40 No Mechanical VTE Prophylaxis d/t N/A MechProphylax Ordered No VTE Pharm Prophylaxis d/t NA PharmProphylax ordered Sepsis (View protocol) Sepsis Present: No Mason Gutierrez 01/14/18 2200: Resident Review Statement Resident Statement: examined this patient, discussed with software development intern Other Findings: Patient is a 72-year-old male with past medical history of hypertension, hyperlipidemia, IDDM, coronary artery disease, LVOT,peripheral vascular disease status post stents, GERD who presented to the ED with severe flank pain this morning. Patient had left flank pain 10/10 started yesterday night. The pain was in his left back, nonradiating, associated with nausea and burning on urination. Patient denies any fever, chills, chest pain, palpitations. Patient was taken to an urgent care clinic for the pain and they recommended coming into the hospital for imaging. In the hospital CT scan done mild left hydronephrosis and perinephric edema caused by an obstructing stone(0.5x 0.7x 1 cm). A Bates catheter was placed in the ED and only 2 ounces were emptied. Patient was seen by urologist and was taken for left ureteroscopy laser lithotripsy with stent placement. The obstruction was relieved by left stent placement, however pus and blood were noted behind obstructing stone and so it was not removed. He did receive 1 dose of Ancef in the OR. Patient tolerated the procedure and remained afebrile. Postprocedure he was able to urinate by himself and urine was haas red color. Vitals : Temperature 96.3, pulse 64, respiration 18, blood pressure 166/80, saturating 97% on room air. Labs showed no white count, H&H of 12.12/37.8, potassium 5.8, creatinine 2.8( baseline 1.5), glucose 175, troponin 0.01. UA significant for increased RBCs and large hemoglobin. EKG: Normal sinus rhythm, right bundle branch block(old) CT abdomen and pelvis showed mild hydronephrosis and perinephric edema caused by obstructing 0.5x 0.7x 1 cm Calculus at the uteropelvic junction. Physical exam General: Awake, alert, oriented, no distress HEENT: PERRLA, EOMI Chest: Clear breath sounds bilaterally CVS: 3+ systolic murmur, S1 and S2 heard Abdomen: BS positive, no tenderness, no CVA tenderness Extremities: No edema Assessment #1 Renal Colic with Left-sided hydronephrosis due to UPJ stone status post stenting #2 Hypertension #3 Hyperkalemia #4 EPIFANIO on CKD #5 NIDDM #6 Peripheral vascular disease status post stents #7 Gastroparesis Plan * Admit to telemetry given elevated blood pressure and hyperkalemia * Vitals per protocol * Patient received 2 L boluses in the ED. We will gently hydrate with NS 7 5 cc an hour X1 bag given hypertension * Patient received Ancef in the ED. We will continue ceftriaxone while in hospital. Plan to discharge patient on by mouth Cipro for 10 days. Elective surgery for stone removal as an outpatient with Dr. Crawley. * Pancultures * Continue Zofran for nausea and IV morphine as needed for pain * Continue home medication metoprolol for high blood pressure. We will hold off on lisinopril for kidney injury. Hydralazine as needed. Given LVOT be cautious with use of vasodilators and avoid diuretics. * Consider cardiology consult if blood pressure still high.(Patient has history of LVOT obstruction and pericardial effusion). Dr Gauthier is his senior capital markets specialist. * Patient received calcium gluconate, Kayexalate in the ED. Recheck stat labs. * Holding lisinopril for EPIFANIO, avoid nephrotoxins, check BEP in a.m. * 3 times a day Accu-Cheks, NovoLog sliding scale, Levemir 5 twice a day * Continue home medications aspirin, Plavix, atorvastatin, metoclopramide * DVT prophylaxis subcutaneous heparin * Full code * Moderate/severe pain pathway Kaleb MCCOY, [facility] 01/15/18 0356: Attending MD Review Statement Attending Statement Attending MD Statement: examined this patient, discuss w/resident/PA/FREIGHT BOOKER, agreed w/resident/PA/FREIGHT BOOKER, discussed with family, reviewed EMR data (avail), reviewed images, amended to note Attending Assessment/Plan: 72 yo M with h/o HTN, T2DM on insulin, gastroparesis, PVD s/p bilateral fem- popliteal bypass, COPD, CKD stage 3, 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 He had not urinated all day. He had CT was done in the ER which showed left hydronephrosis with obstructing calculus of the UPJ. Patient was taken to OR by Urologist Dr. Crawley and left ureteral stent was placed. There was a 1 cm UPJ stone with pus and blood behind it, and a large bladder stone (see operative report). Urine culture was sent from OR. We were asked to evaluate patient for medical admission for monitoring post procedure and medical optimization of renal failure/ hyperkalemia. We evaluated patient in the PACU, where he was noted to be hypertensive to 170/ 100's. He reported some dysuria and dark urine but no flank pain, N/V. Vitals stable except for uncontrolled BP 174/100. Exam: AAO, in no distress, very dry mucosa, no pallor, Chest clear, Heart S1S2 regular, systolic murmur+, Abd soft, NT. No CVA tenderness. Labs: no leukocytosis, K 5.8, BUN 47, creat 2.8 (baseline 1.5), lactic acid 1.8, trop neg. UA proteinuria, WBC 1-3, RBC 25-50. CT abd/pelvis: mild left hydronephrosis and perinephric edema caused by obstructing 0.5 x 0.7 x 1 cm calculus of UPJ. EKG: sinus rhythm, RBBB (old), old inferior infarct, no acute changes, Qtc 454. Assessment and plan: 1. Left renal colic 2. Left sided obstructive uropathy due to UPJ stone s/p stent 3. EPIFANIO on CKD stage 3 4. Hyperkalemia 5. Uncontrolled hypertension 6. T2DM with gastroparesis 7. Lung nodule - Admit to Telemetry - Watch for arrhythmias - BP control with labetalol and hydralazine. Given LVOT we will be cautious with vasodilators and avoid diuretics. - Resume metoprolol in AM - Hold lisinopril and metformin due to EPIFANIO - Repeat EKG and troponin in AM - Panculture - IV ceftriaxone daily - Follow urine culture and taper antibiotics accordingly - Urology follow up - Outpatient elective surgery for stone removal - Patient underwent CT for lung nodule follow up which showed ?pericardial effusion - Please obtain CT records from [place] - Please consult with Dr. Gauthier (patient's senior capital markets specialist) - Gentle hydration, trend renal functions - Avoid NSAIDs - Treat hyperkalemia with calcium gluconate, kayexalate or insulin dextrose - Diabetes management with accucheks, levemir and novolog SS (patient reports he takes the novolog after meals once sugars are higher due to gastroparesis) - Pain management with morphine as needed. - Resume home meds DVT ppx Hep SC. Full code.
[2018-01-14 23:08] VITALS: BP 174/100
[2018-01-15 01:00] VITALS: BP 150/78
[2018-01-15 01:37] LABS: ABSOLUTE BASOPHIL COUNT 0 /CUMM (0.0-0.2); ABSOLUTE EOSINOPHIL COUNT 0 /CUMM (0.0-0.7); ABSOLUTE GRANULOCYTE CT 7.3 /CUMM (1.4-6.5); ABSOLUTE LYMPH COUNT 0.6 /CUMM (1.2-3.4); ABSOLUTE MONOCYTE COUNT 0.3 /CUMM (0.10-0.60); BASOPHIL % 0.2 % (0.0-2.0); EOSINOPHIL % 0.2 % (0-5); GRANULOCYTE % 88.1 % (42.2-75.2); MEAN CORPUSCULAR HGB 28.5 PG (27.0-31.0); MEAN CORPUSCULAR HGB CONC 33.6 G/DL (33.0-37.0); MEAN CORPUSCULAR VOLUME 84.6 FL (80.0-94.0); MEAN PLATELET VOLUME 8.8 FL (7.4-10.4); PLATELET COUNT 165 /CUMM (130-400); RED BLOOD CELL CT 3.73 /CUMM (4.70-6.10)
[2018-01-15 01:42] LABS: HEMATOCRIT 31.5 % (42-52)
[2018-01-15 01:54] LABS: WHITE BLOOD CELL COUNT 8.3 /CUMM (4.8-10.8)
--- NOTE | 2018-01-15 03:57 | Admission Certification ---
Admission Certification Certification Statement - As attending physician, I certify that at the time of - admission, based on clinical presentation, severity of - symptoms, need for further diagnostic testing and - therapeutic interventions, and risk of adverse outcomes - without in-hospital treatment, in my clinical assessment, - this patient requires an acute hospital stay for a minimum - of two nights or longer. I have also considered psychsocial - factors such as support system, advanced age, financial - issues, cognitive issues, and failed out-patient treatments, - past re-admission history, safety of patient, and lack of - compliance as applicable. Specific rationale supporting this admission is: Left obstructive uropathy s/p stent placement, EPIFANIO on CKD with hyperkalemia.
[2018-01-15 07:00] VITALS: BP 142/66
[2018-01-15 07:51] LABS: ABSOLUTE BASOPHIL COUNT 0 /CUMM (0.0-0.2); ABSOLUTE EOSINOPHIL COUNT 0 /CUMM (0.0-0.7); ABSOLUTE GRANULOCYTE CT 6.7 /CUMM (1.4-6.5); ABSOLUTE LYMPH COUNT 0.8 /CUMM (1.2-3.4); ABSOLUTE MONOCYTE COUNT 0.7 /CUMM (0.10-0.60); BASOPHIL % 0.1 % (0.0-2.0); EOSINOPHIL % 0.1 % (0-5); GRANULOCYTE % 80.8 % (42.2-75.2); HEMATOCRIT 31.2 % (42-52); MEAN CORPUSCULAR HGB 28.1 PG (27.0-31.0); MEAN CORPUSCULAR HGB CONC 33.1 G/DL (33.0-37.0); MEAN CORPUSCULAR VOLUME 85.1 FL (80.0-94.0); MEAN PLATELET VOLUME 8.7 FL (7.4-10.4); PLATELET COUNT 172 /CUMM (130-400); RBC DISTRIBUTION WIDTH 14.3 % (11.5-14.5); RED BLOOD CELL CT 3.66 /CUMM (4.70-6.10); WHITE BLOOD CELL COUNT 8.3 /CUMM (4.8-10.8)
--- NOTE | 2018-01-15 08:41 | PN- Housestaff ---
Jacque MCCOY,Wagner 01/15/18 0841: Subjective Follow-up For: Left UPJ stone pyelonephritis Tele-Events Since Last Visit: sinus rhythm HR 60s-70s no events Subjective: patient is complaining of persistent dysuria but denies fevers, chills, or flank pain Review of Systems Constitutional: Reports: see HPI. Objective Last 24 Hrs of Vital Signs/I&O Vital Signs Date Time Temp Pulse Resp B/P B/P Pulse O2 O2 Flow FiO2 Mean Ox Delivery Rate 01/15 1357 98.6 61 20 136/70 96 01/15 0932 103 140/70 01/15 0700 98.0 80 18 142/66 95 01/15 0100 150/78 01/14 2322 62 174/100 01/14 2308 98.7 62 18 174/100 97 01/14 1905 98.7 72 18 154/73 97 Room Air Room Air 01/14 1837 97.5 67 18 133/68 97 Room Air Room Air 01/14 1600 98.3 66 18 196/88 Intake & Output 01/15 1600 01/15 0800 01/15 0000 Intake Total 9158 880 5785 Output Total 1100 450 220 Balance 630 270 880 Intake, IV 794 234 0658 Intake, Oral 1180 120 100 Output, Urine 1100 450 220 Patient 97.551 kg Weight Physical Exam General Appearance: Alert, Oriented X3, Cooperative, No Acute Distress Cardiovascular: Regular Rate, Normal S1, Normal S2, No Murmurs Lungs: Clear to Auscultation, Normal Air Movement Abdomen: Normal Bowel Sounds, Soft, No Tenderness, No Masses, no CVA tenderness Extremities: No Clubbing, No Cyanosis, No Edema, Normal Pulses Current Medications: Current Medications Sig/Juhi Start time Last Medication Dose Route Stop Time Status Admin Aspirin Buffered 325 MG DAILY 01/15 0900 AC 01/15 PO 0931 Atorvastatin Calcium 40 MG 1700 01/15 1700 AC PO Calcium Gluconate 0 .STK-MED ONE 01/14 1731 DC IV Calcium Gluconate 1 GM ONCE ONE 01/14 1700 DC 01/14 Sodium Chloride 100 ML IV 01/14 1759 1742 Ceftriaxone Sodium 1,000 MG DAILY 01/14 2330 AC 01/15 IV 0932 Heparin Sodium 5,000 UNIT Q8 01/15 0600 AC 01/15 (Porcine) SC 1316 Hydralazine HCl 25 MG ONCE ONE 01/14 2300 DC 01/14 PO 01/14 2301 2322 Hydralazine HCl 0 .STK-MED ONE 01/14 1613 DC .ROUTE Insulin Aspart 0 TIDAC 01/15 0800 AC SC Insulin Detemir 5 UNITS BID 01/15 0900 AC 01/15 SC 0929 Lorazepam 0.5 MG BID PRN 01/15 0900 AC 01/14 PO 05/ 0859 2325 Lorazepam 0.5 MG .STK-MED ONE 01/14 2324 DC PO 01/14 2325 Metoclopramide HCl 10 MG BID 01/15 0900 AC 01/15 PO 0931 Metoprolol Succinate 100 MG DAILY 01/15 09 AC 01/15 PO 0932 Morphine Sulfate 2 MG Q6P PRN 01/14 2345 AC IV Morphine Sulfate 2 MG Q4 PRN 01/14 2230 AC IV Ondansetron HCl 4 MG Q6P PRN 01/14 2345 AC IV Sodium Chloride 1,000 ML Q20H 01/14 2300 DC 01/14 IV 01/15 1219 2312 Sodium Chloride 1,000 ML BOLUS ONE 01/14 1830 DC 01/14 IV 01/14 1929 1852 Sodium Polystyrene 0 .STK-MED ONE 01/14 1731 DC Sulfonate .ROUTE Sodium Polystyrene 60 ML ONCE ONE 01/14 1700 DC 01/14 Sulfonate PO 01/14 1701 1742 Last 24 Hrs of Lab/Hernandez Results Last 24 Hrs of Labs/Mics: Laboratory Tests 01/15/18 0640: Anion Gap 11, Estimated GFR 23 L, BUN/Creatinine Ratio 17.4, Troponin I < 0.01, CBC w Diff NO MAN DIFF REQ, RBC 3.66 L, MCV 85.1, MCH 28.1, MCHC 33.1, RDW 14.3 , MPV 8.7, Gran % 80.8 H, Lymphocytes % 10.2 L, Monocytes % 8.8, Eosinophils % 0.1, Basophils % 0.1, Absolute Granulocytes 6.7 H, Absolute Lymphocytes 0.8 L, Absolute Monocytes 0.7 H, Absolute Eosinophils 0, Absolute Basophils 0 01/15/18 0050: Lactic Acid 1.4 01/15/18 0050: Anion Gap 12, Estimated GFR 23 L, BUN/Creatinine Ratio 17.4, CBC w Diff NO MAN DIFF REQ, RBC 3.73 L, MCV 84.6, MCH 28.5, MCHC 33.6, RDW 14.0, MPV 8.8, Gran % 88.1 H, Lymphocytes % 7.5 L, Monocytes % 4.0, Eosinophils % 0.2, Basophils % 0.2, Absolute Granulocytes 7.3 H, Absolute Lymphocytes 0.6 L, Absolute Monocytes 0.3, Absolute Eosinophils 0, Absolute Basophils 0 01/14/181844: Urinalysis LIGHT H, Urine Color YEL, Urine Clarity HAZY H, Urine pH 6.0, Ur Specific [place] 1.025, Urine Protein 100 H, Urine Ketones NEG, Urine Nitrite NEG, Urine Bilirubin NEG, Urine Urobilinogen 0.2, Ur Leukocyte Esterase NEG, Ur Microscopic SEDIMENT EXAMINED, Urine RBC 25-50 H, Urine WBC 1-3 H, Ur Epithelial Cells FEW, Urine Hemoglobin LARGE H, Urine Glucose NEG Microbiology 01/15 50 BLOOD: Blood Culture - RECD 01/15 50 BLOOD: Blood Culture - RECD 01/15 2108 URINE OR: Urine Culture - RES 01/14 1845 URINE ROUT: Urine Culture - RES Assessment/Plan Assessment: 72 year old male with a PMH hyperlipidemia, hypertension, diabetes, coronary artery disease and gastroesophageal reflux with no history of nephrolithiasis who presented with left flank pain Pyelonephritis: CT 5 mm left UPJ obstructing stone with mild hydronephrosis and perinephric edema Afebrile, no leukocytosis UA 1-3 WBCs, urine and blood cultures NGTD Lactic acid within normal limits Continue ceftriaxone, total 10 day course EPIFANIO with hyperkalemia Creatinine 2.7 on presentation Previously normal baseline, creatinine 1.2-1.4 Avoid nephrotoxins Trend renal function Continue intravascular volume resuscitation Hyperkalemia resolved DM: Hold oral hypoglycemics Continue levemir and sliding scale insulin Accuchecks TIDAC CAD: Continue aspirin, statin, beta aleida Diabetic diet DVT ppx-heparin 5000 units subcutaneous q8h Full code Problem List: 1. Acute kidney injury 2. Nephrolithiasis Pain Ratin Pain Location: dysuria Pain Goal: Pain 4 or less Pain Plan: prn Tomorrow's Labs & Rationales: sridevi Rojo MD,Nesha 01/15/18 0846: Attending MD Review Statement Attending Statement Attending MD Statement: examined this patient, discuss w/resident/PA/UNDERWRITING DIRECTOR, agreed w/resident/PA/UNDERWRITING DIRECTOR, reviewed EMR data (avail), discussed with nursing, discussed with case mgmt, amended to note Attending Assessment/Plan: Patient seen and examined. Resting comfortably not in any acute distress. No issues overnight. Denies nausea vomiting. Denies abdominal pain. Admits to some dysuria. Blood pressure control has improved. He is afebrile. He is hemodynamically stable. General appearance: Well-developed and not in any acute distress. HEENT: Anicteric, no pallor, pupils equal and reactive. Neck: Supple with no jugular venous distention. Heart: S1-S2 regular with no audible murmur. Lungs: Adequate and symmetric air entry bilaterally with no added sounds. Abdomen: Nondistended with normal bowel sounds. Soft, nontender with no palpable masses. Extremities: No pedal edema. No cyanosis. Skin: Intact Problems: 1. Acute kidney injury secondary to obstructive uropathy 2. Left hydronephrosis from renal calculus. 3. Pyelonephritis 4. Hypertension 5. Anemia Plan: -Continue hydration with half-normal saline at 100 cc an hour. -Monitor input output closely. -Monitor serum electrolytes daily. -Continue IV antibiotic therapy with ceftriaxone. Follow-up urine culture and blood culture results. -Continue his home antihypertensive regimen. -Check stool guaiac. Check iron profile. Repeat hemoglobin level in a.m. -Blood pressure is stable. Patient may be downgraded to the general medical service. Discontinue telemetry monitoring.
[2018-01-15 13:57] VITALS: BP 136/70
[2018-01-15 22:49] VITALS: BP 148/80
[2018-01-16 06:34] VITALS: BP 120/80
--- NOTE | 2018-01-16 07:46 | PN- Housestaff ---
Shaggy MCCOY,Cayetano 01/16/18 0746: Subjective Follow-up For: Left UPJ stone pyelonephritis Complaints: no complaints Subjective: Patient followed up, appears to be nauseous, but has not vomited, is trying to increase oral intake especially fluids. Vital signs stable, MAXIMUM TEMPERATURE 99, no nursing issues reported. Review of Systems Constitutional: Reports: see HPI. Objective Last 24 Hrs of Vital Signs/I&O Vital Signs Date Time Temp Pulse Resp B/P B/P Pulse O2 O2 Flow FiO2 Mean Ox Delivery Rate 01/16 1448 97.5 67 18 150/90 96 01/16 0634 98.4 72 20 120/80 94 01/15 2249 98.8 62 18 148/80 92 Intake & Output 01/16 1600 01/16 0800 01/16 0000 Intake Total 1100 390 510 Output Total 1025 400 0 Balance 75 -10 510 Intake, IV 400 150 210 Intake, Oral 700 240 300 Number 0 Bowel Movements Output, Urine 1025 400 0 Patient 96.7 kg Weight Weight Bed scale Measurement Method Physical Exam General Appearance: Alert, Oriented X3, Cooperative, No Acute Distress, OVERWEIGHT Other Physical Findings: Cardiovascular: Regular Rate, Normal S1, Normal S2, No Murmurs Lungs: Clear to Auscultation, Normal Air Movement Abdomen: Normal Bowel Sounds, Soft, No Tenderness, No Masses, CVA tenderness + Left (less than yesterday per patient) Extremities: No Clubbing, No Cyanosis, No Edema, Normal Pulses Current Medications: Current Medications Sig/Juhi Start time Last Medication Dose Route Stop Time Status Admin Acetaminophen 1,000 MG Q6P PRN 01/16 1000 AC N/A 1 UNIT IV Aspirin Buffered 325 MG DAILY 01/15 09 AC 01/16 PO 1203 Atorvastatin Calcium 40 MG 1700 01/15 1700 AC 01/16 PO 1719 Ceftriaxone Sodium 1,000 MG DAILY 01/14 2330 AC 01/16 IV 1007 Diazepam 5 MG TID PRN 01/15 1715 AC PO Heparin Sodium 5,000 UNIT Q8 01/15 06 AC 01/16 (Porcine) SC 1413 Insulin Aspart 0 TIDAC 01/15 08 AC 01/16 SC 1008 Insulin Detemir 5 UNITS BID 01/15 0900 AC 01/16 SC 1008 Lorazepam 0.5 MG BID PRN 01/15 09 AC 01/15 PO 01/22 0859 2131 Metoclopramide HCl 10 MG BID 01/15 0900 AC 01/16 PO 1203 Metoprolol Succinate 100 MG DAILY 01/15 0900 AC 01/16 PO 1203 Morphine Sulfate 2 MG Q6P PRN 01/14 2345 AC IV Ondansetron HCl 4 MG .STK-MED ONE 01/16 1005 DC IM 01/16 1006 Ondansetron HCl 4 MG .STK-MED ONE 01/16 0257 DC IM 01/16 0258 Ondansetron HCl 4 MG .STK-MED ONE 01/15 1954 DC IM 01/15 1955 Ondansetron HCl 4 MG Q6P PRN 01/14 2345 AC 01/16 IV 1007 Patient Medication 1 ED ONE ONE 01/16 1445 DC 01/16 Teaching ED 01/16 1446 1601 Phenazopyridine HCl 100 MG PC 01/16 1300 AC 01/16 PO 1719 Simethicone 80 MG Q6P PRN 01/15 1645 AC 01/16 PO 1600 Sodium Chloride 1,000 ML Q10H 01/16 1000 AC 01/16 IV 1210 Sodium Chloride 1,000 ML Q10H 01/15 1545 DC 01/15 IV 01/16 0144 1643 Tramadol HCl 50 MG Q6 PRN 01/15 1645 DC 01/16 PO 0259 Last 24 Hrs of Lab/Hernandez Results Last 24 Hrs of Labs/Mics: Laboratory Tests 01/16/18 0710: Anion Gap 11, Estimated GFR 35 L, BUN/Creatinine Ratio 22.6, CBC w Diff NO MAN DIFF REQ, RBC 4.01 L, MCV 85.4, MCH 28.8, MCHC 33.7, RDW 13.9, MPV 9.4, Gran % 76.6 H, Lymphocytes % 11.1 L, Monocytes % 11.5 H, Eosinophils % 0.6, Basophils % 0.2, Absolute Granulocytes 7.0 H, Absolute Lymphocytes 1.0 L, Absolute Monocytes 1.1 H, Absolute Eosinophils 0.1, Absolute Basophils 0 Assessment/Plan Assessment: 72 year old male with a PMH hyperlipidemia, hypertension, diabetes, coronary artery disease and gastroesophageal reflux with no history of nephrolithiasis who presented with left flank pain. Pyelonephritis: CT 5 mm left UPJ obstructing stone with mild hydronephrosis and perinephric edema Afebrile, no leukocytosis UA 1-3 WBCs, urine and blood cultures NGTD Lactic acid within normal limits Continue ceftriaxone, total 10 day course EPIFANIO with hyperkalemia Creatinine 2.7 on presentation Previously normal baseline, creatinine 1.2-1.4 Avoid nephrotoxins Trend renal function Continue intravascular volume resuscitation Hyperkalemia resolved DM: Hold oral hypoglycemics Continue levemir and sliding scale insulin Accuchecks TIDAC CAD: Continue aspirin, statin, beta aleida Continue zofran for nausea, and switched tramadol which can cause nausea to IV Acetaminophen. Also pyridium ordered for urinary symptoms. Diabetic diet DVT ppx-heparin 5000 units subcutaneous q8h Full code Problem List: 1. Pyelonephritis Pain Ratin Pain Location: left flank, on/off Pain Goal: Pain 4 or less Pain Plan: tylenol, prn Tomorrow's Labs & Rationales: CBC, BEP Erin MCCOY,Artur 01/16/18 5648: Attending MD Review Statement Attending Statement Attending MD Statement: examined this patient, discuss w/resident/PA/ICE CREAM DIPPER, agreed w/resident/PA/ICE CREAM DIPPER, discussed with family, reviewed EMR data (avail), discussed with nursing, discussed with case mgmt, amended to note Attending Assessment/Plan: The patient was seen and discussed with house staff. Remains afebrile on IV Ceftriaxone. Pain has improved. Some nausea noted- Zofran given. Await Urology follow-up about stone.
[2018-01-16 09:10] LABS: ABSOLUTE BASOPHIL COUNT 0 /CUMM (0.0-0.2); ABSOLUTE EOSINOPHIL COUNT 0.1 /CUMM (0.0-0.7); ABSOLUTE MONOCYTE COUNT 1.1 /CUMM (0.10-0.60); BASOPHIL % 0.2 % (0.0-2.0); EOSINOPHIL % 0.6 % (0-5); GRANULOCYTE % 76.6 % (42.2-75.2); HEMATOCRIT 34.3 % (42-52); MEAN CORPUSCULAR HGB 28.8 PG (27.0-31.0); MEAN CORPUSCULAR HGB CONC 33.7 G/DL (33.0-37.0); MEAN CORPUSCULAR VOLUME 85.4 FL (80.0-94.0); MEAN PLATELET VOLUME 9.4 FL (7.4-10.4); PLATELET COUNT 192 /CUMM (130-400); RBC DISTRIBUTION WIDTH 13.9 % (11.5-14.5); RED BLOOD CELL CT 4.01 /CUMM (4.70-6.10); WHITE BLOOD CELL COUNT 9.1 /CUMM (4.8-10.8)
--- NOTE | 2018-01-16 12:37 | Cons- Cardiology ---
General Information and HPI Consulting Request Date of Consult: 01/16/18 Requested By: Artur Khan MD Reason for Consult: Preoperative evaluation, pericardial effusion History of Present Illness: The patient is a pleasant 73-year-old male who is well-known to me with history of diabetes mellitus, hypertension, and hypertrophic cardiomyopathy with mild LV outflow tract obstruction at rest. He was recently noted on CT scan to have a small pericardial effusion. He presented with left flank pain, and he was found to have left-sided hydronephrosis secondary to left UPJ stone. He underwent ureteral stenting. He is noted to have evidence of acute kidney injury. He denies any recent cardiac symptoms. No chest pain. No shortness of breath. No diaphoresis. No palpitations. No nausea or vomiting. Allergies/Medications Allergies: Coded Allergies: No Known Allergies (03/12/16) Home Med List: Aspirin (Ecotrin*) 325 MG TABLET.DR 1 TAB PO DAILY HEART/BLOOD (Reported) Atorvastatin Calcium 80 MG TABLET 0.5 TAB PO DAILY CHOLESTEROL (Reported) Budesonide/Formoterol Fumarate (Symbicort 160-4.5 Mcg Inhaler) 10.2 GM HFA.AER.AD 2 PUF INH BID COPD (Reported) Calcium Polycarbophil (Fibercon) 625 MG TABLET 1 TAB PO DAILY SUPPLEMENT ( Reported) Insulin Aspart (Novolog) 100 UNIT/1 ML VIAL DIABETES (Reported) Insulin Detemir (Levemir) 100 UNIT/1 ML VIAL 10 UNITS SC QAM DIABETES ( Reported) Levalbuterol Tartrate (Xopenex Hfa) 15 GM HFA.AER.AD 2 PUF INH PRN COPD ( Reported) Lorazepam 0.5 MG TABLET 1 TAB PO BIDP PRN SLEEP (Reported) Metformin HCl (Metformin HCl ER) 750 MG TAB.ER.24H 2 TAB PO QPM DIABETES ( Reported) Metoclopramide HCl (Reglan) 10 MG TABLET 1 TAB PO BID GASTOPARESIS (Reported) 30 minutes before meals and bedtime Metoprolol Succinate 100 MG TAB.ER.24H 1 TAB PO DAILY HEART/BP (Reported) Zolpidem Tartrate 10 MG TABLET 1 TAB PO QPMP SLEEP (Reported) Current Medications: Current Medications Sig/Juhi Start time Last Medication Dose Route Stop Time Status Admin Acetaminophen 1,000 MG Q6P PRN 01/16 1000 AC N/A 1 UNIT IV Aspirin Buffered 325 MG DAILY 01/15 0900 AC 01/16 PO 1203 Atorvastatin Calcium 40 MG 1700 01/15 1700 AC 01/15 PO 1641 Ceftriaxone Sodium 1,000 MG DAILY 01/14 2330 AC 01/16 IV 1007 Diazepam 5 MG TID PRN 01/15 1715 AC PO Heparin Sodium 5,000 UNIT Q8 01/15 0600 AC 01/16 (Porcine) SC 0513 Insulin Aspart 0 TIDAC 01/15 0800 AC 01/16 SC 1008 Insulin Detemir 5 UNITS BID 01/15 0900 AC 01/16 SC 1008 Lorazepam 0.5 MG BID PRN 01/15 0900 AC 01/15 PO / 0859 2131 Metoclopramide HCl 10 MG BID 01/15 0900 AC 01/16 PO 1203 Metoprolol Succinate 100 MG DAILY 01/15 0900 AC 01/16 PO 1203 Morphine Sulfate 2 MG Q6P PRN 01/14 2345 AC IV Morphine Sulfate 2 MG Q4 PRN 01/14 2230 DC IV Ondansetron HCl 4 MG .STK-MED ONE 01/16 0257 DC IM 01/16 0258 Ondansetron HCl 4 MG .STK-MED ONE 01/15 1954 DC IM 01/15 1955 Ondansetron HCl 4 MG Q6P PRN 01/14 2345 AC 01/16 IV 1007 Phenazopyridine HCl 100 MG PC 01/16 1300 AC PO Simethicone 80 MG Q6P PRN 01/15 1645 AC 01/15 PO 1641 Sodium Chloride 1,000 ML Q10H 01/16 1000 AC 01/16 IV 1210 Sodium Chloride 1,000 ML Q10H 01/15 1545 DC 01/15 IV 01/16 0144 1643 Tramadol HCl 50 MG Q6 PRN 01/15 1645 DC 01/16 PO 0259 Review of Systems Review of Systems: No rash. No tremor. No melena. No hemoptysis. All other systems were reviewed, and were noted to be negative. 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 reviewed/non-contributory, Family history was reviewed with the patient, and is negative for any factors contributing to the current admission. Psychosocial History Where Do You Live? Home Who Do You Live With? spouse Services at Home: None Primary Language: Malagasy Smoking Status: Former Smoker (1ppd for 50 yrs) ETOH Use: occasional use Illicit Drug Use: denies illicit drug use Functional Ability ADLs Independent: dressing, eating, toileting, bathing. Ambulation: independent IADLs Independent: shopping, housework, finances, food prep, telephone, transportation , medication admin. Employment History Employment: Retired Exam & Diagnostic Data Vital Signs and I&O Vital Signs Date Time Temp Pulse Resp B/P B/P Pulse O2 O2 Flow FiO2 Mean Ox Delivery Rate 01/16 0634 98.4 72 20 120/80 94 01/15 2249 98.8 62 18 148/80 92 01/15 1357 98.6 61 20 136/70 96 Intake & Output 01/16 1600 01/16 0800 01/16 0000 01/15 1600 01/15 0800 01/15 0000 Intake Total 778 718 1293 720 1100 Output Total 400 400 0 1100 450 220 Balance -400 -10 510 630 270 880 Intake, IV 150 210 107 718 4346 Intake, Oral 655 551 3458 120 100 Number 0 Bowel Movements Output, Urine 400 400 0 1100 450 220 Patient 213 lb 215 lb Weight Weight Bed scale Measurement Method Physical Exam: Gen: The patient is in no acute distress HEENT: Normal nose, ears, and oropharynx. Pupils equal bilaterally. Conjunctiva normal. Neck: Supple with no JVD, no masses, and no thyromegaly Lungs: Clear to auscultation with normal respiratory effort Heart: RRR, S1, S2, 2/6 systolic murmur. No peripheral edema, 2+ pulses in the lower extremities bilaterally Abdomen: Soft, nontender, no masses. No hepatomegaly. No splenomegaly Extremities: No clubbing or cyanosis. Normal muscle strength in the upper and lower extremities Skin: Normal skin turgor with no skin ulcers or lesions noted. Neuro: Cranial nerves intact. Sensation intact Psych: Alert and oriented 3 with appropriate affect Labs/Hernandez Results: Laboratory Tests 01/16 01/15 0710 0640 Chemistry Sodium (137 - 145 mmol/L) 142 141 Potassium (3.5 - 5.1 mmol/L) 4.4 5.1 Chloride (98 - 107 mmol/L) 109 H 106 Carbon Dioxide (22 - 30 mmol/L) 22 23 Anion Gap (5 - 16) 11 11 BUN (9 - 20 mg/dL) 43 H 47 H Creatinine (0.7 - 1.2 mg/dL) 1.9 H 2.7 H Estimated GFR (>60 ml/min) 35 L 23 L BUN/Creatinine Ratio (7 - 25 %) 22.6 17.4 Troponin I (<0.11 ng/ml) < 0.01 Hematology CBC w Diff NO MAN DIFF REQ NO MAN DIFF REQ WBC (4.8 - 10.8 /CUMM) 9.1 8.3 RBC (4.70 - 6.10 /CUMM) 4.01 L 3.66 L Hgb (14.0 - 18.0 G/DL) 11.6 L 10.3 L Hct (42 - 52 %) 34.3 L 31.2 L MCV (80.0 - 94.0 FL) 85.4 85.1 MCH (27.0 - 31.0 PG) 28.8 28.1 MCHC (33.0 - 37.0 G/DL) 33.7 33.1 RDW (11.5 - 14.5 %) 13.9 14.3 Plt Count (130 - 400 /CUMM) 192 172 MPV (7.4 - 10.4 FL) 9.4 8.7 Gran % (42.2 - 75.2 %) 76.6 H 80.8 H Lymphocytes % (20.5 - 51.1 %) 11.1 L 10.2 L Monocytes % (1.7 - 9.3 %) 11.5 H 8.8 Eosinophils % (0 - 5 %) 0.6 0.1 Basophils % (0.0 - 2.0 %) 0.2 0.1 Absolute Granulocytes (1.4 - 6.5 /CUMM) 7.0 H 6.7 H Absolute Lymphocytes (1.2 - 3.4 /CUMM) 1.0 L 0.8 L Absolute Monocytes (0.10 - 0.60 /CUMM) 1.1 H 0.7 H Absolute Eosinophils (0.0 - 0.7 /CUMM) 0.1 0 Absolute Basophils (0.0 - 0.2 /CUMM) 0 0 01/15 01/15 0050 0050 Chemistry Sodium (137 - 145 mmol/L) 138 Potassium (3.5 - 5.1 mmol/L) 5.3 H Chloride (98 - 107 mmol/L) 105 Carbon Dioxide (22 - 30 mmol/L) 21 L Anion Gap (5 - 16) 12 BUN (9 - 20 mg/dL) 47 H Creatinine (0.7 - 1.2 mg/dL) 2.7 H Estimated GFR (>60 ml/min) 23 L BUN/Creatinine Ratio (7 - 25 %) 17.4 Lactic Acid (0.7 - 2.1 mmol/L) 1.4 Hematology CBC w Diff NO MAN DIFF REQ WBC (4.8 - 10.8 /CUMM) 8.3 RBC (4.70 - 6.10 /CUMM) 3.73 L Hgb (14.0 - 18.0 G/DL) 10.6 L Hct (42 - 52 %) 31.5 L MCV (80.0 - 94.0 FL) 84.6 MCH (27.0 - 31.0 PG) 28.5 MCHC (33.0 - 37.0 G/DL) 33.6 RDW (11.5 - 14.5 %) 14.0 Plt Count (130 - 400 /CUMM) 165 MPV (7.4 - 10.4 FL) 8.8 Gran % (42.2 - 75.2 %) 88.1 H Lymphocytes % (20.5 - 51.1 %) 7.5 L Monocytes % (1.7 - 9.3 %) 4.0 Eosinophils % (0 - 5 %) 0.2 Basophils % (0.0 - 2.0 %) 0.2 Absolute Granulocytes (1.4 - 6.5 /CUMM) 7.3 H Absolute Lymphocytes (1.2 - 3.4 /CUMM) 0.6 L Absolute Monocytes (0.10 - 0.60 /CUMM) 0.3 Absolute Eosinophils (0.0 - 0.7 /CUMM) 0 Absolute Basophils (0.0 - 0.2 /CUMM) 0 01/14 1845 Urines Urinalysis LIGHT H Urine Color (YEL,AMB,STR) YEL Urine Clarity (CLEAR) HAZY H Urine pH (5.0 - 8.0) 6.0 Ur Specific [place] (1.001 - 1.035) 1.025 Urine Protein (NEG,<30 MG/DL) 100 H Urine Ketones (NEG) NEG Urine Nitrite (NEG) NEG Urine Bilirubin (NEG) NEG Urine Urobilinogen (0.1 - 1.0 EU/dl) 0.2 Ur Leukocyte Esterase (NEG) NEG Ur Microscopic SEDIMENT EXAMINED Urine RBC (0 - 5 /HPF) 25-50 H Urine WBC (0 - 2 /HPF) 1-3 H Ur Epithelial Cells (NONE,FEW) FEW Urine Hemoglobin (NEG) LARGE H Urine Glucose (N MG/DL) NEG Diagnostic Data EKG Results EKG tracing is independently reviewed, and reveals normal sinus rhythm at 58 with right bundle-branch block and possible inferior infarct age undetermined CXR Results Negative Other Results CT Scan of the abdomen and pelvis 01/14/18: Mild left hydronephrosis and perinephric edema caused by an obstructing 0.5 x 0.7 x 1 cm calculus of the ureteropelvic junction. Assessment/Plan Assessment/Plan Assessment: The patient is a 72-year-old male with history of diabetes mellitus, hypertension, and hypertrophic cardiomyopathy with mild left carotid flow tract obstruction. He was recently diagnosed on CT scan to have a small pericardial effusion. He is admitted with acute kidney injury) pyelonephritis secondary to left UPJ stone. He is status post ureteral stenting. He denies any new cardiac symptoms. Recommendations: * Echocardiogram to evaluate for pericardial effusion recently seen on CT scan, and to evaluate left ventricular outflow tract obstruction. * Continue current cardiac medications Consult Acknowledgment - Thank you for your consult request.
[2018-01-16 14:48] VITALS: BP 150/90
[2018-01-16 22:52] VITALS: BP 150/80
[2018-01-17 06:48] VITALS: BP 154/80
--- NOTE | 2018-01-17 07:27 | PN- Housestaff ---
See Addendum Subjective Follow-up For: Left UPJ stone pyelonephritis Complaints: BACK PAIN Subjective: Patient followed up, still has nausea, but has not vomited, still has flank pain , severe at times, Vital signs stable, no nursing issues reported. PENDING UROLOGY RECOMMENDATIONS. Review of Systems Constitutional: Reports: see HPI. Objective Last 24 Hrs of Vital Signs/I&O Vital Signs Date Time Temp Pulse Resp B/P B/P Pulse O2 O2 Flow FiO2 Mean Ox Delivery Rate 01/17 1448 97.8 78 18 144/78 97 Room Air 01/17 0843 154/80 05 0648 98.5 74 18 154/80 96 Room Air 01/16 2252 97.4 71 19 150/80 98 Room Air Intake & Output 01/17 1600 01/17 0800 01/17 0000 Intake Total 900 Output Total 550 450 Balance 350 -450 Intake, IV 800 Intake, Oral 100 Output, Urine 550 450 Patient 95.283 kg Weight Physical Exam General Appearance: Alert, Oriented X3, Cooperative, Mild Distress (FLANK PAIN), overweight Other Physical Findings: Cardiovascular: Regular Rate, Normal S1, Normal S2, No Murmurs Lungs: Clear to Auscultation, Normal Air Movement Abdomen: Normal Bowel Sounds, Soft, No Tenderness, No Masses, CVA tenderness + Left (MORE than yesterday per patient) Extremities: No Clubbing, No Cyanosis, No Edema, Normal Pulses Current Medications: Current Medications Sig/Juhi Start time Last Medication Dose Route Stop Time Status Admin Acetaminophen 1,000 MG Q6P PRN 01/16 1000 AC 01/17 N/A 1 UNIT IV 1231 Aspirin Buffered 325 MG DAILY 01/15 09 AC 01/17 PO 0843 Atorvastatin Calcium 40 MG 1700 01/15 1700 AC 01/17 PO 1704 Ceftriaxone Sodium 1,000 MG DAILY 01/14 2330 AC 01/17 IV 0844 Diazepam 5 MG TID PRN 01/15 1715 AC PO Heparin Sodium 5,000 UNIT Q8 01/15 06 AC 01/17 (Porcine) SC 1441 Insulin Aspart 0 TIDAC 01/15 08 AC 01/16 SC 1008 Insulin Detemir 5 UNITS BID 01/15 09 AC 01/17 SC 0842 Lorazepam 0.5 MG BID PRN 01/15 09 AC 01/16 PO 05/06 0859 2104 Metoclopramide HCl 10 MG 1/2H B/BREAKF/DINNER 01/17 1630 AC 01/17 IV 1704 Metoclopramide HCl 10 MG BID 01/15 09 DC 01/17 PO 0843 Metoprolol Succinate 100 MG DAILY 01/15 0900 AC 01/17 PO 0843 Morphine Sulfate 1 MG ONCE ONE 01/17 1815 DC 01/17 IV 01/17 1816 1811 Morphine Sulfate 2 MG Q6P PRN 01/14 2345 AC 01/17 IV 1442 Omeprazole 40 MG DAILY AC 01/17 1654 AC 01/17 PO 1704 Ondansetron HCl 4 MG .STK-MED ONE 01/17 0308 DC IM 01/17 0309 Ondansetron HCl 4 MG Q6P PRN 01/14 2345 AC 01/17 IV 1441 Phenazopyridine HCl 100 MG PC 01/16 1300 AC 01/17 PO 1704 Simethicone 80 MG Q6P PRN 01/15 1645 AC 01/17 PO 0842 Sodium Chloride 1,000 ML Q10H 01/16 1000 AC 01/17 IV 0937 Last 24 Hrs of Lab/Hernandez Results Last 24 Hrs of Labs/Mics: Laboratory Tests 01/17/18 0745: Anion Gap 10, Estimated GFR 54 L, BUN/Creatinine Ratio 26.9 H, CBC w Diff NO MAN DIFF REQ, RBC 4.15 L, MCV 85.4, MCH 28.1, MCHC 32.9 L, RDW 14.3, MPV 9.4, Gran % 76.3 H, Lymphocytes % 8.8 L, Monocytes % 14.5 H, Eosinophils % 0.3, Basophils % 0.1, Absolute Granulocytes 8.0 H, Absolute Lymphocytes 0.9 L, Absolute Monocytes 1.5 H, Absolute Eosinophils 0, Absolute Basophils 0 Assessment/Plan Assessment: 72 year old male with a PMH hyperlipidemia, hypertension, diabetes, coronary artery disease and gastroesophageal reflux with no history of nephrolithiasis who presented with left flank pain. Pyelonephritis: CT 5 mm left UPJ obstructing stone with mild hydronephrosis and perinephric edema Afebrile, no leukocytosis, BUT ON-GOING PAIN Could be due to the obstructing stone movements, abscess, obstruction despite stent, so ordering repeat CT abd-pelvis to rule out the differentials. Urologoy service called twice today to get recommendations. patient will require Urgent urology recs if complications are visualized in the CT scan. Continue ceftriaxone, total 10 day course EPIFANIO with hyperkalemia Creatinine 2.7 on presentation Previously normal baseline, creatinine 1.2-1.3 Avoid nephrotoxins Trend renal function Continue intravascular volume resuscitation 100ml/hr, as oral intake is still poor and EPIFANIO is still resolving Hyperkalemia resolved DM: Hold oral hypoglycemics Continue levemir and sliding scale insulin Accuchecks TIDAC CAD: Continue aspirin, statin, beta [place] Continue zofran for nausea. Continue pyridium for urinary symptoms. Reglan changed to IV BID instead of PO, 30 min before meals. Diabetic diet DVT ppx-heparin 5000 units subcutaneous q8h Full code Problem List: 1. Pyelonephritis 2. Nephrolithiasis Pain Ratin Pain Location: left flank Pain Goal: Pain 4 or less Pain Plan: as mentioned above Tomorrow's Labs & Rationales: BEP, CBC
[2018-01-17 09:08] LABS: ABSOLUTE BASOPHIL COUNT 0 /CUMM (0.0-0.2); ABSOLUTE EOSINOPHIL COUNT 0 /CUMM (0.0-0.7); ABSOLUTE LYMPH COUNT 0.9 /CUMM (1.2-3.4); ABSOLUTE MONOCYTE COUNT 1.5 /CUMM (0.10-0.60); BASOPHIL % 0.1 % (0.0-2.0); EOSINOPHIL % 0.3 % (0-5); GRANULOCYTE % 76.3 % (42.2-75.2); HEMATOCRIT 35.4 % (42-52); MEAN CORPUSCULAR HGB 28.1 PG (27.0-31.0); MEAN CORPUSCULAR HGB CONC 32.9 G/DL (33.0-37.0); MEAN CORPUSCULAR VOLUME 85.4 FL (80.0-94.0); MEAN PLATELET VOLUME 9.4 FL (7.4-10.4); PLATELET COUNT 185 /CUMM (130-400); RBC DISTRIBUTION WIDTH 14.3 % (11.5-14.5); RED BLOOD CELL CT 4.15 /CUMM (4.70-6.10); WHITE BLOOD CELL COUNT 10.5 /CUMM (4.8-10.8)
--- NOTE | 2018-01-17 12:08 | ECHOCARDIOGRAM REPORT ---
SHO CISSE Age: 72 : 1945 Gender: M Exam Date: 01/16/2018 19:37 Exam Location: [address] [place] [address] A Ht (in): 71 Wt (lb): 213 BSA: 2.22 BP: 120 / 80 Ordering Physician: Cayetano Coon MD Referring Physician: Alexander Gauthier MD Technologist: Vanna Thompson [facility] Room Number: 230-02 Indications: PERICARDIAL EFFUSION Rhythm: Sinus Technical Quality: Technically difficult study FINDINGS Left Ventricle Normal size left ventricle. Mild to moderate LVH with proximal septal thickening. Abnormal relaxation filling pattern of the left ventricle for age (stage 1 diastolic dysfunction). Moderate LVOT obstruction with systolic anterior motion of the mitral valve. Normal left ventricular ejection fraction visually estimated at > 55%. No obvious regional wall motion abnormalities. Right Ventricle Normal right ventricular size and function. Right Atrium Normal right atrial size. Left Atrium Normal left atrial size. Mitral Valve Mild mitral annular calcification. Aortic Valve Aortic valve thickened. Mild aortic regurgitation. Mild to moderate aortic stenosis Tricuspid Valve Tricuspid valve not well visualized, grossly normal. No evidence of pulmonary hypertension. Pulmonic Valve Pulmonic valve not well visualized, grossly normal. Trace pulmonic regurgitation. Pericardium Trace pericardial effusion. Great Vessels 4.0 cm dilated aortic root. Ascending aorta diameter 3.5 cm. CONCLUSIONS Normal size left ventricle. Mild to moderate LVH with proximal septal thickening. Abnormal relaxation filling pattern of the left ventricle for age (stage 1 diastolic dysfunction). Moderate LVOT obstruction with systolic anterior motion of the mitral valve. Normal left ventricular ejection fraction visually estimated at > 55%. Mild aortic regurgitation. Mild to moderate aortic stenosis. Trace pulmonic regurgitation. 4.0 cm dilated aortic root. Ascending aorta diameter 3.5 cm. Trace pericardial effusion. Alexander Gauthier M.D. (Electronically Signed) Final Date: 17 Jan 2018 12:07 MEASUREMENTS (Male / Female) Normal Values 2D ECHO LV Diastolic Diameter PLAX 4.7 cm 4.2 - 5.9 / 3.9 - 5.3 cm LV Systolic Diameter PLAX 2.6 cm 2.1 - 4.0 cm LV Fractional Shortening PLAX 44.7 % 25 - 46 % LV Ejection Fraction 2D Teich 76.0 % IVS Diastolic Thickness 1.3 cm LVPW Diastolic Thickness 1.3 cm LV Relative Wall Thickness 0.6 RV Internal Dim ED PLAX 2.5 cm 1.9 - 3.8 cm LVOT Diameter 2.2 cm Aortic Root Diameter 3.9 cm LA Systolic Diameter LX 4.0 cm 3.0 - 4.0 / 2.7 - 3.8 cm LA Volume 43.0 cm 18 - 58 / 22 - 52 cm Ascending Aorta Diameter 3.5 cm DOPPLER AV Peak Velocity 407.0 cm/s AV Peak Gradient 66.3 mmHg AV Mean Velocity 287.0 cm/s AV Mean Gradient 38.0 mmHg AV Velocity Time Integral 90.9 cm LVOT Peak Velocity 347.0 cm/s LVOT Peak Gradient 48.2 mmHg LVOT Mean Velocity 209.0 cm/s LVOT Mean Gradient 22.0 mmHg LVOT Velocity Time Integral 67.3 cm LVOT Stroke Volume 255.8 cm AV Area Cont Eq vti 2.8 cm AV Area Cont Eq pk 3.2 cm MV Peak Velocity 140.0 cm/s MV Peak Gradient 7.8 mmHg MV Mean Velocity 64.3 cm/s MV Mean Gradient 2.0 mmHg Mitral E Point Velocity 82.8 cm/s Mitral A Point Velocity 127.0 cm/s Mitral E to A Ratio 0.7 MV PHT Velocity 65.2 cm/s MV Deceleration [place] 172.0 cm/s MV Pressure Half Time 113.7 ms MV Area PHT 1.9 cm MV Deceleration Time 264.0 ms TR Peak Velocity 244.0 cm/s TR Peak Gradient 23.8 mmHg Right Atrial Pressure 5.0 mmHg Pulmonary Artery Systolic Pressu 28.8 mmHg Right Ventricular Systolic Press 28.8 mmHg PV Peak Velocity 90.9 cm/s PV Peak Gradient 3.3 mmHg PV Mean Velocity 67.1 cm/s PV Mean Gradient 2.0 mmHg PV Velocity Time Integral 18.6 cm LV E' Lateral Velocity 9.6 cm/s Mitral E to LV E' Lateral Ratio 8.6 LV E' Septal Velocity 3.8 cm/s Mitral E to LV E' Septal Ratio 21.8
[2018-01-17 14:48] VITALS: BP 144/78
--- NOTE | 2018-01-17 17:09 | CT SCAN REPORT ---
EXAMINATION: CT ABDOMEN AND PELVIS WITHOUT CONTRAST CLINICAL INFORMATION: Patient still complaining of flank pain after stent on left side. Had obstructing stone and urologist visualized possibly on this stone then. Rule out complications. Rule out abscess, obstruction. COMPARISON: CT scan of the abdomen and pelvis dated 01/14/2018. TECHNIQUE: Multidetector volumetric imaging was performed from the superior aspect of the liver through the pubic symphysis. Sagittal and coronal reformatted images were obtained on the technologist workstation. DLP: 633.43 there is a 5 mm solid noncalcified pulmonary nodule in the right middle lobe. mGy-cm. FINDINGS: LUNG BASES: There is a 5 mm solid noncalcified pulmonary nodule in the right middle lobe (series 3, image 28), not included on the [id number] of the prior CT scan. The visualized lung bases are otherwise unremarkable. LIVER, GALLBLADDER, AND BILIARY TREE: The liver is normal in size, shape, and attenuation. No focal hepatic lesion on noncontrast imaging. No biliary ductal dilatation is present. The gallbladder is well distended with no evidence of radiopaque gallstones, gallbladder wall thickening, or obvious pericholecystic inflammatory changes. PANCREAS: Unremarkable on noncontrast imaging. SPLEEN, ADRENAL GLANDS: Unremarkable on noncontrast imaging. KIDNEYS AND URETERS: There has been interval placement of a double-J left ureteral stent with proximal pigtail in the renal pelvis and distal pigtail in the bladder. As noted previously, there is a 1.0 x 0.6 cm densely calcified stone in the left renal pelvis (series 2, image 42) with mean attenuation values of approximately 716 Hounsfield units. This is unchanged from prior exam. Previously seen left-sided hydronephrosis has resolved. The left ureter is also decompressed, and no additional ureteral calculi are seen. The right kidney is also decompressed with no evidence of renal calculi seen. Right ureter is decompressed with no ureteral calculi seen. In the kidneys bilaterally, variably sized low-attenuation masses are seen, including in the lower pole of the right kidney and in the mid left kidney, most consistent with small cysts. There is also a hyperdense 0.8 cm mass with mean attenuation values of 73 Hounsfield units in the upper pole of the right kidney, consistent with a hyperdense cyst, unchanged. There is prominent bilateral perinephric stranding, similar to the previous exam. Some of the stranding extends along the proximal and mid left ureter is well. BLADDER: Well distended. Air-fluid level is seen within the bladder, likely related to recent catheterization. Distal pigtail of the double-J left ureteral stent is seen within the bladder lumen. No bladder calculi or bladder wall thickening or pericystic fat stranding noted. PELVIC VISCERA: Unremarkable. GASTROINTESTINAL TRACT: There is prominent fluid distention of the stomach with air-fluid level, consistent with patient's history of gastroparesis. This is slightly more prominent than on the previous exam.. There is interval development of diffuse wall thickening of the duodenum with bowel wall edema and surrounding fat stranding. The duodenal wall measures up to 1.4 cm in thickness. There is also abnormal bowel wall thickening involving the proximal most jejunum with fluid distention of the proximal jejunum. The remainder of the small bowel loops are decompressed and unremarkable. ABDOMINAL WALL: No significant hernia is appreciated. LYMPH NODES, VASCULAR: No significant abdominal or pelvic adenopathy is seen. Scattered nonspecific subcentimeter sized periportal and upper abdominal retroperitoneal lymph nodes are seen. Mild atherosclerotic calcifications of the aorta and branch vessels, including the right renal artery are noted. Eccentric small ulcerated and peripherally calcified plaque is seen within the right side of the distal abdominal aorta (series 2, image 49), unchanged from prior exam. OSSEOUS STRUCTURES: Diffuse osteopenia and multilevel moderate vertebral spurring seen in the lower thoracic and upper and mid lumbar spine. Mild degenerative disc disease seen at the lumbosacral junction. Mild facet arthropathy noted in the lower lumbar spine. IMPRESSION: 1. Interval resolution of previously seen mild left-sided hydronephrosis due to placement of a double-J left ureteral stent. The left renal pelvic density calcified stone is again noted, unchanged. 2. Extensive bilateral perinephric stranding is seen, unchanged from prior exam. 3. No right renal, right ureteral or bladder calculi seen. 4. Interval development of abnormal bowel wall thickening, edema and surrounding mesenteric stranding seen involving the duodenum and the proximal most jejunum. Findings raise the suspicion of acute onset duodenitis. This is a new finding to the prior exam and is of uncertain etiology. Infectious, inflammatory or ischemic etiologies are in the differential. Close clinical correlation requested. 5. Abnormal fluid distention of the stomach with air-fluid level, consistent with patient's history of gastroparesis. 6. Nonspecific 5 mm pulmonary nodule in the right middle lobe, of uncertain significance. In the low risk patient, no further follow-up will be needed. In a high risk patient, optional CT scan follow-up in 12 months is recommended. Findings discussed with Dr. Khan 01/17/2018, approximately 4:50 PM.
--- NOTE | 2018-01-17 17:17 | PN- Cardiology ---
Subjective Subjective: The patient continues to complain of nausea and mild abdominal discomfort. No chest pain. No palpitations. No shortness of breath. No diaphoresis. No nausea or vomiting. Objective Vital Signs and I&Os Vital Signs Date Time Temp Pulse Resp B/P B/P Pulse O2 O2 Flow FiO2 Mean Ox Delivery Rate 01/17 1448 97.8 78 18 144/78 97 Room Air 05 0843 154/80 05/ 0648 98.5 74 18 154/80 96 Room Air 01/16 2252 97.4 71 19 150/80 98 Room Air Intake & Output 01/17 1600 01/17 0800 01/17 0000 01/16 1600 01/16 0800 01/16 0000 Intake Total 900 1100 390 510 Output Total 472 253 4036 400 0 Balance 350 -450 75 -10 510 Intake, IV 800 400 150 210 Intake, Oral 100 700 240 300 Number 0 Bowel Movements Output, Urine 838 936 9280 400 0 Patient 210 lb 213 lb Weight Weight Bed scale Measurement Method Physical Exam: Gen: The patient is in no acute distress HEENT: Normal nose, ears, and oropharynx. Pupils equal bilaterally. Conjunctiva normal. Neck: Supple with no JVD, no masses, and no thyromegaly Lungs: Clear to auscultation with normal respiratory effort Heart: RRR, S1, S2, 2/6 systolic murmur. No peripheral edema, 2+ pulses in the lower extremities bilaterally Abdomen: Soft, nontender, no masses. No hepatomegaly. No splenomegaly Extremities: No clubbing or cyanosis. Normal muscle strength in the upper and lower extremities Skin: Normal skin turgor with no skin ulcers or lesions noted. Current Medications: Current Medications Sig/Juhi Start time Last Medication Dose Route Stop Time Status Admin Acetaminophen 1,000 MG Q6P PRN 01/16 1000 AC 01/17 N/A 1 UNIT IV 1231 Aspirin Buffered 325 MG DAILY 01/15 0900 AC 01/17 PO 0843 Atorvastatin Calcium 40 MG 1700 01/15 1700 AC 01/17 PO 1704 Ceftriaxone Sodium 1,000 MG DAILY 01/14 2330 AC 01/17 IV 0844 Diazepam 5 MG TID PRN 01/15 1715 AC PO Heparin Sodium 5,000 UNIT Q8 01/15 0600 AC 01/17 (Porcine) SC 1441 Insulin Aspart 0 TIDAC 01/15 08 AC 01/16 SC 1008 Insulin Detemir 5 UNITS BID 01/15 0900 AC 01/17 SC 0842 Lorazepam 0.5 MG BID PRN 01/15 0900 AC 01/16 PO 01/22 0859 2104 Metoclopramide HCl 10 MG 1/2H B/BREAKF/DINNER 01/17 1630 AC 01/17 IV 1704 Metoclopramide HCl 10 MG BID 01/15 0900 DC 01/17 PO 0843 Metoprolol Succinate 100 MG DAILY 01/15 0900 AC 01/17 PO 0843 Morphine Sulfate 2 MG Q6P PRN 01/14 2345 AC 01/17 IV 1442 Omeprazole 40 MG DAILY AC 01/17 1654 AC 01/17 PO 1704 Ondansetron HCl 4 MG .STK-MED ONE 01/17 0308 DC IM 01/17 0309 Ondansetron HCl 4 MG Q6P PRN 01/14 2345 AC 01/17 IV 1441 Phenazopyridine HCl 100 MG PC 01/16 1300 AC 01/17 PO 1704 Simethicone 80 MG Q6P PRN 01/15 1645 AC 01/17 PO 0842 Sodium Chloride 1,000 ML Q10H 01/16 1000 AC 01/17 IV 0937 Results Last 48 Hrs of Labs/Mics: Laboratory Tests 01/17/18 0745: Anion Gap 10, Estimated GFR 54 L, BUN/Creatinine Ratio 26.9 H, CBC w Diff NO MAN DIFF REQ, RBC 4.15 L, MCV 85.4, MCH 28.1, MCHC 32.9 L, RDW 14.3, MPV 9.4, Gran % 76.3 H, Lymphocytes % 8.8 L, Monocytes % 14.5 H, Eosinophils % 0.3, Basophils % 0.1, Absolute Granulocytes 8.0 H, Absolute Lymphocytes 0.9 L, Absolute Monocytes 1.5 H, Absolute Eosinophils 0, Absolute Basophils 0 01/16/18 0710: Anion Gap 11, Estimated GFR 35 L, BUN/Creatinine Ratio 22.6, CBC w Diff NO MAN DIFF REQ, RBC 4.01 L, MCV 85.4, MCH 28.8, MCHC 33.7, RDW 13.9, MPV 9.4, Gran % 76.6 H, Lymphocytes % 11.1 L, Monocytes % 11.5 H, Eosinophils % 0.6, Basophils % 0.2, Absolute Granulocytes 7.0 H, Absolute Lymphocytes 1.0 L, Absolute Monocytes 1.1 H, Absolute Eosinophils 0.1, Absolute Basophils 0 Recent Imaging Studies: Echocardiogram January 17, 2018: Normal size left ventricle. Mild to moderate LVH with proximal septal thickening. Abnormal relaxation filling pattern of the left ventricle for age (stage 1 diastolic dysfunction). Moderate LVOT obstruction with systolic anterior motion of the mitral valve. Normal left ventricular ejection fraction visually estimated at > 55%. Mild aortic regurgitation. Mild to moderate aortic stenosis. Trace pulmonic regurgitation. 4.0 cm dilated aortic root. Ascending aorta diameter 3.5 cm. Trace pericardial effusion. Assessment/Plan Assessment/Plan Assessment: 1. Diabetes mellitus 2. 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 Pyelonephritis and acute kidney injury secondary to left UPJ stone Plan: * Continue current cardiac medications. * Cardiac risk is acceptable for urologic procedures or surgery if needed Continue telemetry? Not applicable
[2018-01-17 22:27] VITALS: BP 142/76
[2018-01-18 06:47] VITALS: BP 108/70
--- NOTE | 2018-01-18 07:42 | PN- Housestaff ---
Shaggy MCCOY,Cayetano 01/18/18 0742: Subjective Follow-up For: Left side obstructing stone, s/p stent placement Complaints: pain scale (0-10) (8/10) Subjective: I followed up and examined the patient today. He is resting comfortably and bed currently but he mentioned that he still has pain 8/10, left flank, but also over epigastrium. Nausea is better but still present. Patient also complains of [id number] epigastric pain. Review of Systems Constitutional: Reports: see HPI. Objective Last 24 Hrs of Vital Signs/I&O Vital Signs Date Time Temp Pulse Resp B/P B/P Pulse O2 O2 Flow FiO2 Mean Ox Delivery Rate 01/18 0740 110/80 01/18 0647 98.2 87 20 108/70 95 Room Air 01/17 2227 99.3 84 18 142/76 95 01/17 1448 97.8 78 18 144/78 97 Room Air Intake & Output 01/18 1600 01/18 0800 01/18 0000 Intake Total 920 1040 Output Total 250 575 550 Balance -250 345 490 Intake, IV 800 800 Intake, Oral 120 240 Output, Urine 250 575 550 Physical Exam General Appearance: Alert, Oriented X3, Cooperative, Mild Distress, overweight Other Physical Findings: Cardiovascular: Regular Rate, Normal S1, Normal S2, No Murmurs Lungs: Clear to Auscultation, Normal Air Movement Abdomen: Normal Bowel Sounds, Soft, Epigastric tenderness, No Masses, CVA tenderness + Left Extremities: No Clubbing, No Cyanosis, No Edema, Normal Pulses Current Medications: Current Medications Sig/Juhi Start time Last Medication Dose Route Stop Time Status Admin Acetaminophen 1,000 MG .STK-MED ONE 01/17 1230 DC IV 01/17 1231 Acetaminophen 1,000 MG Q6P PRN 01/16 1000 AC 01/17 N/A 1 UNIT IV 1231 Aspirin Buffered 325 MG DAILY 01/15 0900 AC 01/18 PO 0740 Atorvastatin Calcium 40 MG 1700 01/15 1700 AC 01/17 PO 1704 Ceftriaxone Sodium 1,000 MG DAILY 01/14 2330 AC 01/18 IV 0740 Diazepam 5 MG TID PRN 01/15 1715 AC PO Heparin Sodium 5,000 UNIT Q8 01/15 0600 AC 01/18 (Porcine) SC 0559 Insulin Aspart 0 TIDAC 01/15 08 AC 01/16 SC 1008 Insulin Detemir 5 UNITS BID 01/15 09 01/18 SC 0836 Lorazepam 0.5 MG BID PRN 01/15 09 01/16 PO 01/22 0859 2104 Metoclopramide HCl 20 MG 1/2H B/BREAKF/DINNER 01/18 1630 IV Metoclopramide HCl 10 MG 1/2H B/BREAKF/DINNER 01/17 1630 FL 01/18 IV 0652 Metoclopramide HCl 10 MG BID 01/15 09 FL 01/17 PO 0843 Metoprolol Succinate 100 MG DAILY 01/15 09 01/18 PO 0740 Morphine Sulfate 1 MG ONCE ONE 01/17 181 FL 01/17 IV 01/17 181 181 Morphine Sulfate 2 MG Q6P PRN 01/14 2345 01/18 IV 0740 Omeprazole 40 MG 1/2H B/BREAKF/DINNER 01/18 1630 PO Omeprazole 40 MG DAILY AC 01/17 1654 FL 01/18 PO 0559 Ondansetron HCl 4 MG .STK-MED ONE 01/18 0209 FL IM 01/18 0210 Ondansetron HCl 4 MG .STK-MED ONE 01/17 2029 DC IM 01/17 2030 Ondansetron HCl 4 MG .STK-MED ONE 01/17 2029 FL IM 01/17 2030 Ondansetron HCl 4 MG .STK-MED ONE 01/17 1437 DC IM 01/17 1438 Ondansetron HCl 4 MG Q6P PRN 01/14 2345 01/18 IV 0210 Phenazopyridine HCl 100 MG PC 01/16 1300 01/18 PO 0740 Simethicone 80 MG Q6P PRN 01/15 1645 01/17 PO 0842 Sodium Chloride 1,000 ML Q10H 01/16 1000 AC 01/18 IV 0559 Last 24 Hrs of Lab/Hernandez Results Last 24 Hrs of Labs/Mics: Laboratory Tests 01/18/18 0710: Anion Gap 9, Estimated GFR 60, BUN/Creatinine Ratio 24.2, Total Bilirubin 0.3, Direct Bilirubin 0.3, AST 13 L, ALT 19 L, Alkaline Phosphatase 38, Total Protein 5.0 L, Albumin 2.4 L, Amylase < 30 L, Lipase 46, CBC w Diff NO MAN DIFF REQ, RBC 3.69 L, MCV 86.4, MCH 27.9, MCHC 32.3 L, RDW 14.0, MPV 9.1, Gran % 76.9 H, Lymphocytes % 8.5 L, Monocytes % 13.9 H, Eosinophils % 0.6, Basophils % 0.1, Absolute Granulocytes 8.1 H, Absolute Lymphocytes 0.9 L, Absolute Monocytes 1.5 H, Absolute Eosinophils 0.1, Absolute Basophils 0 Assessment/Plan Assessment: 72 year old male with a PMH hyperlipidemia, hypertension, diabetes, coronary artery disease and gastroesophageal reflux with no history of nephrolithiasis who presented with left flank pain. With complaints of flank and epigastric pain. Pyelonephritis: CT 5 mm left UPJ obstructing stone with mild Left hydronephrosis and perinephric edema Afebrile, no leukocytosis, BUT ON-GOING PAIN Repeat CT scna of abd-pelvis showed DJ stent, resolution of hydronephrosis. Urologoy service on board. Discussed plan to go for surgery later on Tuesday/ Tuesday/other, and that he could be discharged with adequate pain managment for now. But will drop in official recs later today. Continue pyridium for urinary symptoms. Continue ceftriaxone, total 10 day course Abdominal pain, duodenitis Differentials are pain due to stone, pancreatitis, also his CT yesterday showed duodenitis, and was placed on PPI. Reglan was changed to IV as he is uesed to taking it and is now on opiates for pain, which can worsen his existing gastroparesis. Lipase, amylase, LFT WNL. GI consulted Agrees with IV Reglan (now 20 mg), PPI BID NPO from [place] EGD tomorrow Continue zofran PRN for nausea. EPIFANIO with hyperkalemia, resolved Creatinine 2.7 on presentation, now 1.2 Avoid nephrotoxins Trend renal function Continue intravascular volume resuscitation 100ml/hr, as oral intake is still poor and and EPIFANIO is still resolving Hyperkalemia resolved DM: Hold oral hypoglycemics Continue levemir and sliding scale insulin Accuchecks TIDAC CAD: Continue aspirin, statin, beta aleida Diabetic diet DVT ppx-heparin 5000 units subcutaneous q8h Full code Problem List: 1. Pyelonephritis 2. Acute kidney injury 3. Duodenitis Pain Ratin (at times) Pain Location: flank, left, also epigastrium on/off Pain Goal: Pain 4 or less Pain Plan: prn Tomorrow's Labs & Rationales: BEP, CBC Erin MCCOY,Artur 01/18/18 1422: Attending MD Review Statement Attending Statement Attending MD Statement: examined this patient, discuss w/resident/PA/AIRPLANE PILOT CHIEF, agreed w/resident/PA/AIRPLANE PILOT CHIEF, reviewed EMR data (avail), discussed with nursing, discussed with case mgmt, reviewed images, amended to note Attending Assessment/Plan: The patient was seen and discussed with house staff, nursing, and case management. The patient with increased abdominal pain and still with some flank pain. CT showing ?duodenitis/persistent stone. Spoke with Dr. Brownlee and either Dr. Crawley or he will see patient today. Await GI consult with Dr. Brush. Will increased reglan and omeprazole pending consult. ADDENDUM: Seen by GI and will have EGD tomorrow- change PPI from po to IV Pantoprazole (on-call architect internship notified). Also was seen by Dr. Crawley. As per nursing she plans on OR Saturday 01/20 for cystoscopic laser removal of stone.
[2018-01-18 08:41] LABS: ABSOLUTE BASOPHIL COUNT 0 /CUMM (0.0-0.2); ABSOLUTE EOSINOPHIL COUNT 0.1 /CUMM (0.0-0.7); ABSOLUTE GRANULOCYTE CT 8.1 /CUMM (1.4-6.5); ABSOLUTE LYMPH COUNT 0.9 /CUMM (1.2-3.4); ABSOLUTE MONOCYTE COUNT 1.5 /CUMM (0.10-0.60); BASOPHIL % 0.1 % (0.0-2.0); EOSINOPHIL % 0.6 % (0-5); GRANULOCYTE % 76.9 % (42.2-75.2); HEMATOCRIT 31.9 % (42-52); MEAN CORPUSCULAR HGB 27.9 PG (27.0-31.0); MEAN CORPUSCULAR HGB CONC 32.3 G/DL (33.0-37.0); MEAN CORPUSCULAR VOLUME 86.4 FL (80.0-94.0); MEAN PLATELET VOLUME 9.1 FL (7.4-10.4); PLATELET COUNT 177 /CUMM (130-400); RED BLOOD CELL CT 3.69 /CUMM (4.70-6.10); WHITE BLOOD CELL COUNT 10.5 /CUMM (4.8-10.8)
--- NOTE | 2018-01-18 12:01 | PN- Cardiology ---
Subjective Subjective: stable Objective Vital Signs and I&Os Vital Signs Date Time Temp Pulse Resp B/P B/P Pulse O2 O2 Flow FiO2 Mean Ox Delivery Rate 01/18 0740 110/80 05/ 0647 98.2 87 20 108/70 95 Room Air 01/17 2227 99.3 84 18 142/76 95 05 1448 97.8 78 18 144/78 97 Room Air Intake & Output 01/18 1600 01/18 0801/18 0000 01/17 1600 01/17 0000 Intake Total 920 1040 800 900 Output Total 250 575 550 800 550 450 Balance -250 345 490 0 350 -450 Intake, IV 800 800 800 800 Intake, Oral 120 240 100 Output, Urine 250 575 550 800 550 450 Patient 210 lb Weight Current Medications: Current Medications Sig/Juhi Start time Last Medication Dose Route Stop Time Status Admin Acetaminophen 1,000 MG .STK-MED ONE 01/17 1230 DC IV 01/17 1231 Acetaminophen 1,000 MG Q6P PRN 01/16 1000 AC 01/17 N/A 1 UNIT IV 1231 Aspirin Buffered 325 MG DAILY 01/15 09 AC 01/18 PO 0740 Atorvastatin Calcium 40 MG 1700 01/15 1700 AC 01/17 PO 1704 Ceftriaxone Sodium 1,000 MG DAILY 01/14 2330 AC 01/18 IV 0740 Diazepam 5 MG TID PRN 01/15 1715 AC PO Heparin Sodium 5,000 UNIT Q8 01/15 06 AC 01/18 (Porcine) SC 0559 Insulin Aspart 0 TIDAC 01/15 08 AC 01/16 SC 1008 Insulin Detemir 5 UNITS BID 01/15 09 AC 01/18 SC 0836 Lorazepam 0.5 MG BID PRN 01/15 09 AC 01/16 PO 01/22 0859 2104 Metoclopramide HCl 20 MG 1/2H B/BREAKF/DINNER 01/18 1630 AC IV Metoclopramide HCl 10 MG 1/2H B/BREAKF/DINNER 01/17 1630 DC 01/18 IV 0652 Metoclopramide HCl 10 MG BID 01/15 09 DC 01/17 PO 0843 Metoprolol Succinate 100 MG DAILY 01/15 09 AC 01/18 PO 0740 Morphine Sulfate 1 MG ONCE ONE 01/17 1815 DC 01/17 IV 05/01 1816 1811 Morphine Sulfate 2 MG Q6P PRN 01/14 2345 01/18 IV 0740 Omeprazole 40 MG 1/2H B/BREAKF/DINNER 01/18 1630 PO Omeprazole 40 MG DAILY 01/17 1654 VA 01/18 PO 0559 Ondansetron HCl 4 MG .STK-MED ONE 01/18 0209 DC IM 01/18 0210 Ondansetron HCl 4 MG .STK-MED ONE 01/17 2029 DC IM 01/17 2030 Ondansetron HCl 4 MG .STK-MED ONE 01/17 2029 DC IM 01/17 2030 Ondansetron HCl 4 MG .STK-MED ONE 01/17 1437 DC IM 01/17 1438 Ondansetron HCl 4 MG Q6P PRN 01/14 2345 01/18 IV 0210 Phenazopyridine HCl 100 MG PC 01/16 1300 AC 01/18 PO 0740 Simethicone 80 MG Q6P PRN 01/15 1645 01/17 PO 0842 Sodium Chloride 1,000 ML Q10H 01/16 1000 01/18 IV 0559 Results Last 48 Hrs of Labs/Mics: Laboratory Tests 01/18/18 0710: Anion Gap 9, Estimated GFR 60, BUN/Creatinine Ratio 24.2, Total Bilirubin 0.3, Direct Bilirubin 0.3, AST 13 L, ALT 19 L, Alkaline Phosphatase 38, Total Protein 5.0 L, Albumin 2.4 L, Amylase < 30 L, Lipase 46, CBC w Diff NO MAN DIFF REQ, RBC 3.69 L, MCV 86.4, MCH 27.9, MCHC 32.3 L, RDW 14.0, MPV 9.1, Gran % 76.9 H, Lymphocytes % 8.5 L, Monocytes % 13.9 H, Eosinophils % 0.6, Basophils % 0.1, Absolute Granulocytes 8.1 H, Absolute Lymphocytes 0.9 L, Absolute Monocytes 1.5 H, Absolute Eosinophils 0.1, Absolute Basophils 0 01/17/18 0745: Anion Gap 10, Estimated GFR 54 L, BUN/Creatinine Ratio 26.9 H, CBC w Diff NO MAN DIFF REQ, RBC 4.15 L, MCV 85.4, MCH 28.1, MCHC 32.9 L, RDW 14.3, MPV 9.4, Gran % 76.3 H, Lymphocytes % 8.8 L, Monocytes % 14.5 H, Eosinophils % 0.3, Basophils % 0.1, Absolute Granulocytes 8.0 H, Absolute Lymphocytes 0.9 L, Absolute Monocytes 1.5 H, Absolute Eosinophils 0, Absolute Basophils 0 Assessment/Plan Assessment/Plan Assessment: 1. Diabetes mellitus 2. 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 Pyelonephritis and acute kidney injury secondary to left UPJ stone 4. Persistent abdominal discomfort with duodenitis noted on CT abdomen Plan: - Stable post left ureteroscopy and stent 01/14 with resolution of hydronephrosis noted on followup CT. - Continue current cardiac medications. - Cardiac risk is acceptable for further urologic procedures or surgery as necessary Continue telemetry? No
--- NOTE | 2018-01-18 12:38 | Cons- Gastroenterology ---
General Information and HPI Consulting Request Date of Consult: 01/18/18 Requested By: Artur Khan MD Reason for Consult: 1. Abdominal pain 2. Abnormal CT scan abdomen 3. Duodenitis 4. Gastroparesis Source of Information: patient, electronic medical record Exam Limitations: no limitations History of Present Illness: Mr. 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 He had a CAT scan which showed a 5 mm UPJ obstructing stone, with elevated creatinine at 2.2 and elevated potassium at 5.8 around noon on 01/14. Patient underwent stent placement for left UPJ obstructing stone prior to this admission. Given patient's elevated creatinine and potassium due to severe dehydration and infected left urinary system, urology consult recommended admission to medicine with IV fluid administration and antibiotics. Urine culture was already sent from the OR. Gi is consulted for evaluation of persistent abdominal pain and duodenitis diagnosed by CT scan of the abdomen which was done on 01/18/2018. The results are as follows. FINDINGS: LUNG BASES: There is a 5 mm solid noncalcified pulmonary nodule in the right middle lobe (series 3, image 28), not included on the [id number] of the prior CT scan. The visualized lung bases are otherwise unremarkable. LIVER, GALLBLADDER, AND BILIARY TREE: The liver is normal in size, shape, and attenuation. No focal hepatic lesion on noncontrast imaging. No biliary ductal dilatation is present. The gallbladder is well distended with no evidence of radiopaque gallstones, gallbladder wall thickening, or obvious pericholecystic inflammatory changes. PANCREAS: Unremarkable on noncontrast imaging. SPLEEN, ADRENAL GLANDS: Unremarkable on noncontrast imaging. KIDNEYS AND URETERS: There has been interval placement of a double-J left ureteral stent with proximal pigtail in the renal pelvis and distal pigtail in the bladder. As noted previously, there is a 1.0 x 0.6 cm densely calcified stone in the left renal pelvis (series 2, image 42) with mean attenuation values of approximately 716 Hounsfield units. This is unchanged from prior exam. Previously seen left-sided hydronephrosis has resolved. The left ureter is also decompressed, and no additional ureteral calculi are seen. The right kidney is also decompressed with no evidence of renal calculi seen. Right ureter is decompressed with no ureteral calculi seen. In the kidneys bilaterally, variably sized low-attenuation masses are seen, including in the lower pole of the right kidney and in the mid left kidney, most consistent with small cysts. There is also a hyperdense 0.8 cm mass with mean attenuation values of 73 Hounsfield units in the upper pole of the right kidney, consistent with a hyperdense cyst, unchanged. There is prominent bilateral perinephric stranding, similar to the previous exam. Some of the stranding extends along the proximal and mid left ureter is well. BLADDER: Well distended. Air-fluid level is seen within the bladder, likely related to recent catheterization. Distal pigtail of the double-J left ureteral stent is seen within the bladder lumen. No bladder calculi or bladder wall thickening or pericystic fat stranding noted. PELVIC VISCERA: Unremarkable. GASTROINTESTINAL TRACT: There is prominent fluid distention of the stomach with air-fluid level, consistent with patient's history of gastroparesis. This is slightly more prominent than on the previous exam.. There is interval development of diffuse wall thickening of the duodenum with bowel wall edema and surrounding fat stranding. The duodenal wall measures up to 1.4 cm in thickness. There is also abnormal bowel wall thickening involving the proximal most jejunum with fluid distention of the proximal jejunum. The remainder of the small bowel loops are decompressed and unremarkable. ABDOMINAL WALL: No significant hernia is appreciated. LYMPH NODES, VASCULAR: No significant abdominal or pelvic adenopathy is seen. Scattered nonspecific subcentimeter sized periportal and upper abdominal retroperitoneal lymph nodes are seen. Mild atherosclerotic calcifications of the aorta and branch vessels, including the right renal artery are noted. Eccentric small ulcerated and peripherally calcified plaque is seen within the right side of the distal abdominal aorta (series 2, image 49), unchanged from prior exam. OSSEOUS STRUCTURES: Diffuse osteopenia and multilevel moderate vertebral spurring seen in the lower thoracic and upper and mid lumbar spine. Mild degenerative disc disease seen at the lumbosacral junction. Mild facet arthropathy noted in the lower lumbar spine. IMPRESSION: 1. Interval resolution of previously seen mild left-sided hydronephrosis due to placement of a double-J left ureteral stent. The left renal pelvic density calcified stone is again noted, unchanged. 2. Extensive bilateral perinephric stranding is seen, unchanged from prior exam. 3. No right renal, right ureteral or bladder calculi seen. 4. Interval development of abnormal bowel wall thickening, edema and surrounding mesenteric stranding seen involving the duodenum and the proximal most jejunum. Findings raise the suspicion of acute onset duodenitis. This is a new finding to the prior exam and is of uncertain etiology. Infectious, inflammatory or ischemic etiologies are in the differential. Close clinical correlation requested. 5. Abnormal fluid distention of the stomach with air-fluid level, consistent with patient's history of gastroparesis. 6. Nonspecific 5 mm pulmonary nodule in the right middle lobe, of uncertain significance. In the low risk patient, no further follow-up will be needed. In a high risk patient, optional CT scan follow-up in 12 months is recommended. Patient has been unable to take any solid food by mouth without severe epigastric pain afterwards. He has a history of gastroparesis which was previously treated with domperidone. He now takes Reglan 10 mg by mouth 3 times a day as well as Nexium every morning and Zantac daily at bedtime. He has had no melena nor bright red blood per rectum. He reports that he is not had a bowel movement since admission to the hospital but has not been able to eat anything since admission. He is had no hematemesis. He reports that his severe upper abdominal pain began within the past 24-48 hours. He reports that this pain is not like his prior gastroparesis pain. Allergies/Medications Allergies: Coded Allergies: No Known Allergies (03/12/16) Home Med List: Aspirin (Ecotrin*) 325 MG TABLET.DR 1 TAB PO DAILY HEART/BLOOD (Reported) Atorvastatin Calcium 80 MG TABLET 0.5 TAB PO DAILY CHOLESTEROL (Reported) Budesonide/Formoterol Fumarate (Symbicort 160-4.5 Mcg Inhaler) 10.2 GM HFA.AER.AD 2 PUF INH BID COPD (Reported) Calcium Polycarbophil (Fibercon) 625 MG TABLET 1 TAB PO DAILY SUPPLEMENT ( Reported) Insulin Aspart (Novolog) 100 UNIT/1 ML VIAL DIABETES (Reported) Insulin Detemir (Levemir) 100 UNIT/1 ML VIAL 10 UNITS SC QAM DIABETES ( Reported) Levalbuterol Tartrate (Xopenex Hfa) 15 GM HFA.AER.AD 2 PUF INH PRN COPD ( Reported) Lorazepam 0.5 MG TABLET 1 TAB PO BIDP PRN SLEEP (Reported) Metformin HCl (Metformin HCl ER) 750 MG TAB.ER.24H 2 TAB PO QPM DIABETES ( Reported) Metoclopramide HCl (Reglan) 10 MG TABLET 1 TAB PO BID GASTOPARESIS (Reported) 30 minutes before meals and bedtime Metoprolol Succinate 100 MG TAB.ER.24H 1 TAB PO DAILY HEART/BP (Reported) Zolpidem Tartrate 10 MG TABLET 1 TAB PO QPMP SLEEP (Reported) Current Medications: Current Medications Sig/Juhi Start time Last Medication Dose Route Stop Time Status Admin Acetaminophen 1,000 MG Q6P PRN 01/16 1000 AC 01/18 N/A 1 UNIT IV 1205 Aspirin Buffered 325 MG DAILY 01/15 0900 AC 01/18 PO 0740 Atorvastatin Calcium 40 MG 1700 01/15 1700 AC 01/17 PO 1704 Ceftriaxone Sodium 1,000 MG DAILY 01/14 2330 AC 01/18 IV 0740 Dextrose/Sodium 1,000 ML Q13H 01/18 1215 AC Chloride IV Diazepam 5 MG TID PRN 01/15 1715 AC PO Heparin Sodium 5,000 UNIT Q8 01/15 0600 AC 01/18 (Porcine) SC 0559 Insulin Aspart 0 TIDAC 01/15 0800 DC 01/16 SC 1008 Insulin Detemir 5 UNITS BID 01/15 0900 AC 01/18 SC 0836 Insulin Human Regular 0 Q6 01/18 1230 AC SC Lorazepam 0.5 MG BID PRN 01/15 0900 AC 01/16 PO 01/22 0859 2104 Metoclopramide HCl 20 MG 1/2H B/BREAKF/DINNER 01/18 1630 AC IV Metoclopramide HCl 10 MG 1/2H B/BREAKF/DINNER 01/17 1630 DC 01/18 IV 0652 Metoprolol Succinate 100 MG DAILY 01/15 0900 AC 01/18 PO 0740 Morphine Sulfate 2 MG Q4-6 PRN PRN 01/18 1230 AC IV Morphine Sulfate 1 MG ONCE ONE 01/17 1815 DC 01/17 IV 01/17 1816 1811 Morphine Sulfate 2 MG Q6P PRN 01/14 2345 DC 01/18 IV 0740 Omeprazole 40 MG 1/2H B/BREAKF/DINNER 01/18 1630 AC PO Omeprazole 40 MG DAILY AC 01/17 1654 DC 01/18 PO 0559 Ondansetron HCl 4 MG .STK-MED ONE 01/18 0209 DC IM 01/18 0210 Ondansetron HCl 4 MG .STK-MED ONE 01/17 2029 DC IM 01/17 2030 Ondansetron HCl 4 MG .STK-MED ONE 01/17 2029 DC IM 01/17 2030 Ondansetron HCl 4 MG .STK-MED ONE 01/17 1437 DC IM 01/17 1438 Ondansetron HCl 4 MG Q6P PRN 01/14 2345 01/18 IV 0210 Patient Medication 1 ED ONE ONE 01/18 1215 DC Teaching ED 01/18 1216 Phenazopyridine HCl 100 MG PC 01/16 1300 AC 01/18 PO 0740 Simethicone 80 MG Q6P PRN 01/15 1645 01/17 PO 0842 Sodium Chloride 1,000 ML Q10H 01/16 1000 DC 01/18 IV 0559 Past History Travel History Traveled to [place] past 21 day No Medical History Blood Transfusion Hx: No Neurological: NONE, RESTLESS LEG EENT: SLEEP APNEA Cardiovascular: CAD, hypertension, hyperlipidemia, FEM/POP BYPASS BILATERAL PVC 'S Respiratory: COPD, emphysema, LUNG NODULES Gastrointestinal: GERD, COLON POLYPS GASTROPARESIS Hepatic: NONE Renal: NONE (CRI) Musculoskeletal: osteoarthritis Psychiatric: insomnia Endocrine: diabetes Blood Disorders: anemia Cancer(s): NONE 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 Home Who Do You Live With? spouse Services at Home: None Primary Language: Taiwanese Smoking Status: Former Smoker (1ppd for 50 yrs) ETOH Use: occasional use Illicit Drug Use: denies illicit drug use Functional Ability ADLs Independent: dressing, eating, toileting, bathing. Ambulation: independent IADLs Independent: shopping, housework, finances, food prep, telephone, transportation , medication admin. Employment History Employment: Retired Exam & Diagnostic Data Vital Signs and I&O Vital Signs Date Time Temp Pulse Resp B/P B/P Pulse O2 O2 Flow FiO2 Mean Ox Delivery Rate 01/18 0740 110/80 01/18 0647 98.2 87 20 108/70 95 Room Air 05/01 2227 99.3 84 18 142/76 95 01/17 1448 97.8 78 18 144/78 97 Room Air Intake & Output 01/18 0400 Intake Total 920 1040 1700 1490 510 Output Total 215 683 2043 450 1425 0 Balance 95 490 350 -450 65 510 Intake, IV 730 838 1347 550 210 Intake, Oral 120 240 100 940 300 Number 0 Bowel Movements Output, Urine 014 476 5934 450 1425 0 Patient 210 lb 213 lb Weight Weight Bed scale Measurement Method Physical Exam General Appearance: well developed/nourished, no apparent distress, alert, awake Head: atraumatic, normal appearance Eyes: Bilateral: normal appearance. Ears, Nose, Throat: hearing grossly normal Neck: normal inspection, full range of motion Respiratory: normal breath sounds, no respiratory distress Cardiovascular: regular rate/rhythm, 2/6 holosystolic murmur Gastrointestinal: soft, bowel sounds are increased and active. There is mild diffuse tenderness in the upper abdomen with voluntary guarding but no rebound Back: normal inspection, normal range of motion, there is no CVA tenderness Extremities: no edema Neurologic/Psych: oriented x 3, normal mood/affect Cranial Nerves: normal hearing, normal speech, PERRL Skin: intact, normal color, warm/dry Results Pertinent Lab Results: Laboratory Tests 01/18 01/17 0710 0745 Chemistry Sodium (137 - 145 mmol/L) 139 137 Potassium (3.5 - 5.1 mmol/L) 3.6 4.0 Chloride (98 - 107 mmol/L) 110 H 106 Carbon Dioxide (22 - 30 mmol/L) 20 L 21 L Anion Gap (5 - 16) 9 10 BUN (9 - 20 mg/dL) 29 H 35 H Creatinine (0.7 - 1.2 mg/dL) 1.2 1.3 H Estimated GFR (>60 ml/min) 60 54 L BUN/Creatinine Ratio (7 - 25 %) 24.2 26.9 H Total Bilirubin (0.2 - 1.3 mg/dL) 0.3 Direct Bilirubin (< 0.4 mg/dL) 0.3 AST (17 - 59 U/L) 13 L ALT (21 - 72 U/L) 19 L Alkaline Phosphatase (< 127 U/L) 38 Total Protein (6.3 - 8.2 g/dL) 5.0 L Albumin (3.5 - 5.0 g/dL) 2.4 L Amylase (30 - 110 U/L) < 30 L Lipase (23 - 300 U/L) 46 Hematology CBC w Diff NO MAN DIFF REQ NO MAN DIFF REQ WBC (4.8 - 10.8 /CUMM) 10.5 10.5 RBC (4.70 - 6.10 /CUMM) 3.69 L 4.15 L Hgb (14.0 - 18.0 G/DL) 10.3 L 11.6 L Hct (42 - 52 %) 31.9 L 35.4 L MCV (80.0 - 94.0 FL) 86.4 85.4 MCH (27.0 - 31.0 PG) 27.9 28.1 MCHC (33.0 - 37.0 G/DL) 32.3 L 32.9 L RDW (11.5 - 14.5 %) 14.0 14.3 Plt Count (130 - 400 /CUMM) 177 185 MPV (7.4 - 10.4 FL) 9.1 9.4 Gran % (42.2 - 75.2 %) 76.9 H 76.3 H Lymphocytes % (20.5 - 51.1 %) 8.5 L 8.8 L Monocytes % (1.7 - 9.3 %) 13.9 H 14.5 H Eosinophils % (0 - 5 %) 0.6 0.3 Basophils % (0.0 - 2.0 %) 0.1 0.1 Absolute Granulocytes (1.4 - 6.5 /CUMM) 8.1 H 8.0 H Absolute Lymphocytes (1.2 - 3.4 /CUMM) 0.9 L 0.9 L Absolute Monocytes (0.10 - 0.60 /CUMM) 1.5 H 1.5 H Absolute Eosinophils (0.0 - 0.7 /CUMM) 0.1 0 Absolute Basophils (0.0 - 0.2 /CUMM) 0 0 04/30 0710 Chemistry Sodium (137 - 145 mmol/L) 142 Potassium (3.5 - 5.1 mmol/L) 4.4 Chloride (98 - 107 mmol/L) 109 H Carbon Dioxide (22 - 30 mmol/L) 22 Anion Gap (5 - 16) 11 BUN (9 - 20 mg/dL) 43 H Creatinine (0.7 - 1.2 mg/dL) 1.9 H Estimated GFR (>60 ml/min) 35 L BUN/Creatinine Ratio (7 - 25 %) 22.6 Hematology CBC w Diff NO MAN DIFF REQ WBC (4.8 - 10.8 /CUMM) 9.1 RBC (4.70 - 6.10 /CUMM) 4.01 L Hgb (14.0 - 18.0 G/DL) 11.6 L Hct (42 - 52 %) 34.3 L MCV (80.0 - 94.0 FL) 85.4 MCH (27.0 - 31.0 PG) 28.8 MCHC (33.0 - 37.0 G/DL) 33.7 RDW (11.5 - 14.5 %) 13.9 Plt Count (130 - 400 /CUMM) 192 MPV (7.4 - 10.4 FL) 9.4 Gran % (42.2 - 75.2 %) 76.6 H Lymphocytes % (20.5 - 51.1 %) 11.1 L Monocytes % (1.7 - 9.3 %) 11.5 H Eosinophils % (0 - 5 %) 0.6 Basophils % (0.0 - 2.0 %) 0.2 Absolute Granulocytes (1.4 - 6.5 /CUMM) 7.0 H Absolute Lymphocytes (1.2 - 3.4 /CUMM) 1.0 L Absolute Monocytes (0.10 - 0.60 /CUMM) 1.1 H Absolute Eosinophils (0.0 - 0.7 /CUMM) 0.1 Absolute Basophils (0.0 - 0.2 /CUMM) 0 Assessment/Plan Assessment/Recommendations: ASSESSMENT: 1. Abnormal CT Scan of the Abdomen 2. Segmental Duodenitis 3. S/P L Nephrostomy 4. Diabetes Mellitus, Insulin-Dependent with Gastroparesis 5. Cardiovascular Disease, S/P CABG RECOMMENDATIONS: 1. Protonix 40 mg IV BID 2. EGD tomorrow. Risks and benefits discussed with patient in presence of son and 3. If EGD and biopsy is unrevealing consider CTA to evaluate possible vascular sources of inflammatory changes in duodenum Consult Acknowledgment - Thank you for your consult request.
[2018-01-18 14:22] VITALS: BP 110/70
[2018-01-18 22:23] VITALS: BP 130/80
[2018-01-19 05:40] VITALS: BP 120/70
--- NOTE | 2018-01-19 07:55 | PN- Housestaff ---
See Addendum Subjective Follow-up For: Left side obstructing stone, s/p stent placement; Epigastric pain Complaints: epigastric pain Subjective: I followed up and examined the patient today. He is resting comfortably, although he complains of ongoing epigastric pain and left flank pain. His nausea is slightly better, but he has been nothing by mouth for EGD this morning. Of note, a underwent an EGD this morning, with findings of multiple ulcers and with concerns of vascular compromise, and underwent CT angiogram today, and the results communicated to me was not concerning for any ischemic events. The results were conveyed to the patient as well. Review of Systems Constitutional: Reports: see HPI. Objective Last 24 Hrs of Vital Signs/I&O Vital Signs Date Time Temp Pulse Resp B/P B/P Pulse O2 O2 Flow FiO2 Mean Ox Delivery Rate 01/19 1428 97.5 68 18 110/80 97 Room Air 01/19 1023 120/70 01/19 0540 97.9 72 20 120/70 96 Room Air 01/19 0000 Room Air 01/18 2223 98.6 77 18 130/80 94 Room Air Intake & Output 01/19 1600 01/19 0800 01/19 0000 Intake Total 1060 Output Total 350 1020 Balance -350 40 Intake, IV 700 Intake, Oral 360 Output, Urine 350 1020 Physical Exam General Appearance: Alert, Oriented X3, Cooperative, Mild Distress Other Physical Findings: Cardiovascular: Regular Rate, Normal S1, Normal S2, No Murmurs Lungs: Clear to Auscultation, Normal Air Movement Abdomen: Normal Bowel Sounds, Soft, Epigastric tenderness+, No Masses, CVA tenderness + Left Extremities: No Clubbing, No Cyanosis, No Edema, Normal Pulses Current Medications: Current Medications Sig/Juhi Start time Last Medication Dose Route Stop Time Status Admin Acetaminophen 1,000 MG Q6P PRN 01/16 1000 AC 01/18 N/A 1 UNIT IV 1205 Aspirin Buffered 325 MG DAILY 01/15 0900 AC 01/18 PO 0740 Atorvastatin Calcium 40 MG 1700 01/15 1700 AC 01/19 PO 1729 Ceftriaxone Sodium 1,000 MG DAILY 01/14 2330 DC 01/18 IV 0740 Chlorhexidine 1 GM .STK-MED ONE 01/19 1123 DC Gluconate TOP 01/19 1124 Dextrose/Sodium 1,000 ML Q13H 01/19 1245 AC 01/19 Chloride IV 1341 Dextrose/Sodium 1,000 ML Q13H 01/18 1215 DC 01/18 Chloride IV 2234 Diazepam 5 MG TID PRN 01/15 1715 AC PO Epinephrine 3 MG .STK-MED ONE 01/19 1123 DC SC 01/19 1124 Heparin Sodium 5,000 UNIT Q8 01/15 06 AC 01/19 (Porcine) SC 0544 Insulin Aspart 0 TIDAC 01/19 1700 r 01/19 SC 01/20 0000 1735 Insulin Detemir 5 UNITS BID 01/15 09 AC 01/19 SC 1037 Insulin Human Regular 0 Q6 01/19 2359 UNVr SC Insulin Human Regular 4 UNITS .STK-MED ONE 01/19 0535 DC IV 01/19 0536 Insulin Human Regular 4 UNITS .STK-MED ONE 01/19 0046 DC IV 01/19 0047 Insulin Human Regular 0 Q6 01/18 1230 DC 01/19 SC 1210 Lorazepam 0.5 MG BID PRN 01/15 09 AC 01/16 PO 01/22 0859 2104 Metoclopramide HCl 20 MG 1/2H B/BREAKF/DINNER 01/18 1630 AC 01/19 IV 1726 Metoprolol Succinate 100 MG DAILY 01/15 0900 AC 01/19 PO 1023 Morphine Sulfate 2 MG Q4-6 PRN PRN 01/18 1230 AC 01/19 IV 1432 Ondansetron HCl 4 MG Q6P PRN 01/14 2345 AC 01/18 IV 0210 Pantoprazole Sodium 40 MG BID 01/18 2100 AC 01/19 IV 1020 Phenazopyridine HCl 100 MG PC 01/16 1300 AC 01/19 PO 1729 Polyethylene Glycol 17 GM DAILY PRN 01/19 1245 AC PO Senna/Docusate Sodium 2 TAB DAILY PRN 01/19 1245 AC PO Simethicone 80 MG Q6P PRN 01/15 1645 AC 01/17 PO 0842 Sodium Chloride 10 ML .STK-MED ONE 01/19 1123 DC IV 01/19 1124 Last 24 Hrs of Lab/Hernandez Results Last 24 Hrs of Labs/Mics: Laboratory Tests 01/19/18 0705: Anion Gap 7, Estimated GFR 60, BUN/Creatinine Ratio 17.5, CBC w Diff NO MAN DIFF REQ, RBC 3.09 L, MCV 85.6, MCH 27.9, MCHC 32.5 L, RDW 14.4, MPV 9.1, Gran % 74.4, Lymphocytes % 11.3 L, Monocytes % 10.2 H, Eosinophils % 3.8, Basophils % 0.3, Absolute Granulocytes 5.4, Absolute Lymphocytes 0.8 L, Absolute Monocytes 0.7 H, Absolute Eosinophils 0.3, Absolute Basophils 0 Assessment/Plan Assessment: 72 year old male with a PMH hyperlipidemia, hypertension, diabetes, coronary artery disease and gastroesophageal reflux with no history of nephrolithiasis who presented with left flank pain. With complaints of flank and epigastric pain. Pyelonephritis 10 mm left UPJ obstructing stone with mild Left hydronephrosis and perinephric edema, s/p stent Afebrile, no leukocytosis, BUT ON-GOING PAIN Repeat CT scan of abd-pelvis showed DJ stent, resolution of hydronephrosis. Urologoy service on board. Discussed plan to go for surgery later on Tuesday. NPO on for that. Continue pyridium for urinary symptoms. Continue ceftriaxone, total 10 day course Abdominal pain, duodenal ulcer EGD showed duodenal ulceration upto third portion, Presbyesophagus, Gastric mucosal atrophy and erosion antrum and prepyloric region, among other findings. With suspicion of vascular compromise, a CT angiogram was suggested. CT angiogram did not show any vascular compromise. Carafate 1 g 3 times a day, at bedtime started today Continuing IV PPI twice a day Continuing Reglan, Zofran. Diet advanced as tolerated, will be nothing by mouth after midnight for urology procedure tomorrow. New pancreas tail mass Needs further workup. Could be a neuroendocrine tumor, that could contribute to the multiple ulcers that he has. GI referral to follow after discharge. Patient will explained about the condition, and agrees to follow up with GI services. Lung nodule 0.6 cm triangular-shaped nodule within the anterior right middle lobe of the lungs. Likely inflammatory. Can be followed in out pt setting. Patient will explained on this one as well, will get follow-up imaging, and will discuss with PCP after discharge. EPIFANIO with hyperkalemia, resolved Creatinine 2.7 on presentation, now 1.2 Avoid nephrotoxins Trend renal function Continue intravascular volume resuscitation 100ml/hr, as oral intake is still poor and and EPIFANIO is still resolving Hypokalemia instead, added K-dur 40 meq today DM: Hold oral hypoglycemics Continue levemir and sliding scale insulin Accuchecks TIDAC while eating; Insluin NPO scale and accuchecks q6h while NPO CAD: Continue aspirin, statin, beta aleida Diabetic diet DVT ppx-heparin 5000 units subcutaneous q8h, may hold for the AM Full code Problem List: 1. Pyelonephritis 2. Duodenitis 3. Duodenal ulcer 4. Pancreatic mass 5. Lung nodule Pain Ratin Pain Location: epigastrium and left flank Pain Goal: Pain 4 or less Pain Plan: prn Tomorrow's Labs & Rationales: CBC, BEP, INR
[2018-01-19 08:08] LABS: ABSOLUTE BASOPHIL COUNT 0 /CUMM (0.0-0.2); ABSOLUTE EOSINOPHIL COUNT 0.3 /CUMM (0.0-0.7); ABSOLUTE LYMPH COUNT 0.8 /CUMM (1.2-3.4); ABSOLUTE MONOCYTE COUNT 0.7 /CUMM (0.10-0.60); BASOPHIL % 0.3 % (0.0-2.0)
[2018-01-19 08:39] LABS: ABSOLUTE GRANULOCYTE CT 5.4 /CUMM (1.4-6.5); EOSINOPHIL % 3.8 % (0-5); GRANULOCYTE % 74.4 % (42.2-75.2); MEAN CORPUSCULAR HGB 27.9 PG (27.0-31.0); MEAN CORPUSCULAR HGB CONC 32.5 G/DL (33.0-37.0); MEAN CORPUSCULAR VOLUME 85.6 FL (80.0-94.0); MEAN PLATELET VOLUME 9.1 FL (7.4-10.4); PLATELET COUNT 154 /CUMM (130-400); RBC DISTRIBUTION WIDTH 14.4 % (11.5-14.5); RED BLOOD CELL CT 3.09 /CUMM (4.70-6.10); WHITE BLOOD CELL COUNT 7.2 /CUMM (4.8-10.8)
[2018-01-19 08:46] LABS: HEMATOCRIT 26.5 % (42-52)
--- NOTE | 2018-01-19 09:37 | PN- Urology ---
Subjective Subjective: Pt sitting up in bed. Complaint of epigastric pain. Left flank pain requiring narctoic pain management. Review of Systems Constitutional: Reports: no symptoms. EENTM: Reports: no symptoms. Cardiovascular: Reports: no symptoms. Respiratory: Reports: no symptoms. Gastrointestinal: Reports: abdominal pain. Genitourinary: Reports: no symptoms. Musculoskeletal: Reports: no symptoms. Skin: Reports: no symptoms. Neurological/Psychological: Reports: no symptoms. Hematologic/Endocrine: Reports: no symptoms. Immunologic/Allergic: Reports: no symptoms. Objective Vital Signs and I&Os Vital Signs Date Time Temp Pulse Resp B/P B/P Pulse O2 O2 Flow FiO2 Mean Ox Delivery Rate 01/19 0540 97.9 72 20 120/70 96 Room Air 01/19 0000 Room Air 01/18 2223 98.6 77 18 130/80 94 Room Air 01/18 1422 98.3 78 18 110/70 96 Room Air Intake & Output 01/19 1600 01/19 0800 / 0000 01/18 1600 01/18 0800 01/18 0000 Intake Total 2819 385 5139 Output Total 350 1020 250 575 550 Balance -350 40 -250 345 490 Intake, IV 700 800 800 Intake, Oral 360 120 240 Output, Urine 350 1020 250 575 550 Physical Exam: awake and alert, NAD abd soft, ND/NT Left CVA tenderness No boyer Physical Exam General Appearance: well developed/nourished, no apparent distress, alert, awake , comfortable Head: atraumatic Ears, Nose, Throat: normal ENT inspection Neck: normal inspection Respiratory: no respiratory distress Abdomen: soft, non-tender Rectal: deferred Back: normal inspection Extremities: normal inspection Neurologic/Psychiatric: awake, alert, oriented x 3 Skin: intact, normal color, warm/dry Reproductive: Normal male genitalia Current Medications: Current Medications Sig/Juhi Start time Last Medication Dose Route Stop Time Status Admin Acetaminophen 1,000 MG .STK-MED ONE 01/18 1204 DC IV 01/18 1205 Acetaminophen 1,000 MG Q6P PRN 01/16 1000 AC 01/18 N/A 1 UNIT IV 1205 Aspirin Buffered 325 MG DAILY 01/15 0900 AC 01/18 PO 0740 Atorvastatin Calcium 40 MG 1700 01/15 1700 AC 01/18 PO 1637 Ceftriaxone Sodium 1,000 MG DAILY 01/14 2330 DC 01/18 IV 0740 Dextrose/Sodium 1,000 ML Q13H 01/18 1215 AC 01/18 Chloride IV 2234 Diazepam 5 MG TID PRN 01/15 1715 AC PO Heparin Sodium 5,000 UNIT Q8 01/15 0600 AC 01/19 (Porcine) SC 0544 Insulin Aspart 0 TIDAC 01/15 0800 DC 01/16 SC 1008 Insulin Detemir 5 UNITS BID 01/15 0900 01/18 SC 2043 Insulin Human Regular 4 UNITS .STK-MED ONE 01/19 0046 DC IV 01/19 0047 Insulin Human Regular 0 Q6 01/18 1230 01/19 SC 0544 Lorazepam 0.5 MG BID PRN 01/15 0900 AC 01/16 PO 01/22 0859 2104 Metoclopramide HCl 20 MG 1/2H B/BREAKF/DINNER 01/18 1630 AC 01/18 IV 1637 Metoprolol Succinate 100 MG DAILY 01/15 0900 AC 01/18 PO 0740 Morphine Sulfate 2 MG Q4-6 PRN PRN 01/18 1230 01/19 IV 0546 Morphine Sulfate 2 MG Q6P PRN 01/14 2345 ME 01/18 IV 0740 Omeprazole 40 MG 1/2H B/BREAKF/DINNER 01/18 1630 ME 01/18 PO 1637 Ondansetron HCl 4 MG Q6P PRN 01/14 2345 AC 01/18 IV 0210 Pantoprazole Sodium 40 MG BID 01/18 2100 AC 01/18 IV 2038 Patient Medication 1 ED ONE ONE 01/18 1215 ME 01/18 Teaching ED 01/18 1216 1235 Phenazopyridine HCl 100 MG PC 01/16 1300 AC 01/18 PO 1859 Simethicone 80 MG Q6P PRN 01/15 1645 01/17 PO 0842 Sodium Chloride 1,000 ML Q10H 01/16 1000 DC 01/18 IV 0559 Results Last 48 Hours of Labs: Laboratory Tests 01/19 01/18 0705 0710 Chemistry Sodium (137 - 145 mmol/L) 136 L 139 Potassium (3.5 - 5.1 mmol/L) 3.3 L 3.6 Chloride (98 - 107 mmol/L) 109 H 110 H Carbon Dioxide (22 - 30 mmol/L) 20 L 20 L Anion Gap (5 - 16) 7 9 BUN (9 - 20 mg/dL) 21 H 29 H Creatinine (0.7 - 1.2 mg/dL) 1.2 1.2 Estimated GFR (>60 ml/min) 60 60 BUN/Creatinine Ratio (7 - 25 %) 17.5 24.2 Total Bilirubin (0.2 - 1.3 mg/dL) 0.3 Direct Bilirubin (< 0.4 mg/dL) 0.3 AST (17 - 59 U/L) 13 L ALT (21 - 72 U/L) 19 L Alkaline Phosphatase (< 127 U/L) 38 Total Protein (6.3 - 8.2 g/dL) 5.0 L Albumin (3.5 - 5.0 g/dL) 2.4 L Amylase (30 - 110 U/L) < 30 L Lipase (23 - 300 U/L) 46 Hematology CBC w Diff NO MAN DIFF REQ NO MAN DIFF REQ WBC (4.8 - 10.8 /CUMM) 7.2 10.5 RBC (4.70 - 6.10 /CUMM) 3.09 L 3.69 L Hgb (14.0 - 18.0 G/DL) 8.6 L 10.3 L Hct (42 - 52 %) 26.5 L 31.9 L MCV (80.0 - 94.0 FL) 85.6 86.4 MCH (27.0 - 31.0 PG) 27.9 27.9 MCHC (33.0 - 37.0 G/DL) 32.5 L 32.3 L RDW (11.5 - 14.5 %) 14.4 14.0 Plt Count (130 - 400 /CUMM) 154 177 MPV (7.4 - 10.4 FL) 9.1 9.1 Gran % (42.2 - 75.2 %) 74.4 76.9 H Lymphocytes % (20.5 - 51.1 %) 11.3 L 8.5 L Monocytes % (1.7 - 9.3 %) 10.2 H 13.9 H Eosinophils % (0 - 5 %) 3.8 0.6 Basophils % (0.0 - 2.0 %) 0.3 0.1 Absolute Granulocytes (1.4 - 6.5 /CUMM) 5.4 8.1 H Absolute Lymphocytes (1.2 - 3.4 /CUMM) 0.8 L 0.9 L Absolute Monocytes (0.10 - 0.60 /CUMM) 0.7 H 1.5 H Absolute Eosinophils (0.0 - 0.7 /CUMM) 0.3 0.1 Absolute Basophils (0.0 - 0.2 /CUMM) 0 0 Assessment/Plan Assessment/Plan 72yo male with large left renal stone s/p left ureteral stent with continued pain and new onset epigastric pain. He was admitted postop due to elevated CR and decompression of renal system of pus. Pt to have EGD with GI and given his continued epigastric pain, discussed with patient the option to treat left renal stone before his discharge. Treat left renal stone with ureteroscopy and lase lithotripsy with stone extraction and stent replacement. He also has a bladder stone but denies any voiding issues. Will address the bladder stone as well if no issues from kidney stone treatment eg gross hematuria. Answered all questions after risks, benefits and alternatives given. NPO/IVF after MN on night. Surgery for left renal stone in the afternoon tuesday. If patient stable medically, can be discharged from standpoint with FU as an outpatient postop. Core Measures Venous Thromboembolism VTE Risk Factors Age>40 No Mechanical VTE Prophylaxis d/t N/A MechProphylax Ordered No VTE Pharm Prophylaxis d/t NA PharmProphylax ordered
--- NOTE | 2018-01-19 09:55 | Proc Note Endoscopy ---
Endoscopy Procedure Medical History: unchanged Mental Status: alert/oriented Heart/Lung Eval Prior to Sedation: within normal limits Candidate for Sedation? Yes Procedure Date: 01/19/18 Procedure Type: EGD with Biopsy and Control of Bleeding Casket Assembler: MD Ellison Deborah E. ASA Classification: III Indications: 1. Epigastric pain 2. Abnormal CT scan abdomen 3. Diffuse thickening duodenum second and third portion Instrument: diagnostic gastroscope Meds Received: MAC Patient's Tolerance: good Complications: none Extent Reached: third portion of duodenum Procedure: Note: Informed consent was obtained prior to procedure. Risks and benefits of procedure were discussed with patient. Potential complications discussed included perforation, bleeding, abdominal pain, and adverse reaction to medications. It was explained that iany or all of these complications could result in the need for extended hospitalization, emergency surgery, transfusion of packed red blood cells (with the risk of HIV or hepatitis virus), intubation with mechanical ventilation, and possible need for antibiotics. It was further explained that an existing tumor polyp or mucosal abnormality might not be identified at the time of the procedure thus resulting in a missed opportunity for early diagnosis and treatment of a gastrointestinal malignancy or disease with possible interval development of a gastrointestinal cancer or other disease with possible worsening of clinical condition in the interval between endoscopies. It was also discussed that complications are not limited to those listed above. Possible alternatives to endoscopic treatment or evaluation were discussed. All questions were answered. Continuous EKG and blood pressure monitors were attached. Supplemental oxygen was provided with O2 Sat monitoring. Patient was placed in the left lateral decubitus position. A surgical timeout was performed. All persons in the room were identified. All concerns were expressed and answered. A bite block was placed in the mouth and sedation was administered by anesthesia and titrated to comfort prior to starting the procedure. The Olympus upper endoscope was advanced under direct vision to the level of the third portion of the duodenum. Esophagus: The esophagus had a normal mucosal vascular pattern throughout its entirety to just above the GE junction. There was mild tortuosity and a quart short appearance to the esophagus consistent with presbyesophagus. The GE junction was identified and was normal. The Z line was located at 43 cm from the incisors. There were 3 deeply cratered 8 mm ulcers at the GE junction at the cardia. Both had central eschar. There was no active bleeding. These ulcers were almost circumferential in distribution. Stomach: The stomach had diffuse mucosal atrophy in the antrum and distal body. There were scattered erosions in the antrum and prepyloric region. Retroflexed view of the cardiofundic region revealed diffuse nodularity without erythema or erosion. Biopsy for routine histopathology was obtained from this area. The pylorus was patent and easily intubated. Biopsies were obtained from the antrum , angularis, gastric body and lesser curvature to rule out H. Pylori. Duodenum: The duodenum was fully examined from bulb down to the third portion. The posterior duodenal bulb was almost completely occupied by an ulcer. There was marked surrounding erythema and edema. The ulcer was covered by black eschar. There is no active bleeding. Extending from D1 to the third portion there were multiple circumferential ulcers surmounting duodenal folds. Some were linear and some were much broader, measuring 6-8 mm at their widest. Some ulcers were completely clean base with only yellow-white exudate while others were covered with black eschar. These extended from the distal duodenal bulb down to the reach of the scope. Within the third portion of the duodenum one of these ulcers had an area of oozing amidst black eschar. 1:10,000 epinephrine was injected around the ulcer crater with appropriate blanching. 3 mL of epinephrine was used. The area was treated with BiCAP electrocautery. There is no oozing at the end of the procedure. Biopsy was obtained from one of the areas of clean base ulceration from both the ulcer crater and edge to rule out ischemia given segmental distribution of ulceration. With the endoscope in the forward-viewing position, it was slowly withdrawn and all areas were re-inspected and findings are as described previously. Patient tolerated the procedure well. EBL: Minimal Specimens Removed: 1. Duodenal ulcer along the fold, rule out ischemic changes 2. antrum, angularis, gastric body and lesser curvature to rule out H. Pylori. 3. Nodularity within gastric body and fundus Findings: 1. Circumferential ulceration along folds extending from the duodenal bulb down through the third portion of the duodenum 2. One ulcer with stigmata of bleeding in the third portion of the duodenum 3. Three, almost circumferential 8 mm ulcers with eschar at GE junction/cardia 4. Nodularity gastric body and fundus 5. Presbyesophagus 6. Gastric mucosal atrophy and erosion antrum and prepyloric region Impression: 1. Circumferential ulceration along folds extending from the duodenal bulb down through the third portion of the duodenum 2. One ulcer with stigmata of bleeding in the third portion of the duodenum 3. Three, almost circumferential 8 mm ulcers with eschar at GE junction/cardia 4. Nodularity gastric body and fundus 5. Presbyesophagus 6. Gastric mucosal atrophy and erosion antrum and prepyloric region Given segmental distribution of ulceration as well as circumferential nature of ulcers within the duodenum as well as acute onset of changes, I'm concerned that they represent an ischemic event. Recommendations: 1. Would consider CTA 2. Would consider vascular surgery consult for their input 3. Continue twice a day IV PPI 4. Advance diet as tolerated 5. Await pathology
--- NOTE | 2018-01-19 12:21 | PN- Cardiology ---
Subjective Subjective: The patient is status post EGD, which revealed multiple ulcers. He is feeling well from a cardiac standpoint. No chest pain. No palpitations. No shortness of breath. No diaphoresis. Objective Vital Signs and I&Os Vital Signs Date Time Temp Pulse Resp B/P B/P Pulse O2 O2 Flow FiO2 Mean Ox Delivery Rate 01/19 1023 120/70 05/ 0540 97.9 72 20 120/70 96 Room Air 01/19 0000 Room Air 01/18 2223 98.6 77 18 130/80 94 Room Air 01/18 1422 98.3 78 18 110/70 96 Room Air Intake & Output 01/19 1600 / 0800 / 0000 01/18 1600 01/18 0800 01/18 0000 Intake Total 1178 669 4972 Output Total 350 1020 250 575 550 Balance -350 40 -250 345 490 Intake, IV 700 800 800 Intake, Oral 360 120 240 Output, Urine 350 1020 250 575 550 Physical Exam: Gen: The patient is in no acute distress HEENT: Normal nose, ears, and oropharynx. Pupils equal bilaterally. Conjunctiva normal. Neck: Supple with no JVD, no masses, and no thyromegaly Lungs: Clear to auscultation with normal respiratory effort Heart: RRR, S1, S2, 2/6 systolic murmur. No peripheral edema, 2+ pulses in the lower extremities bilaterally Abdomen: Soft, nontender, no masses. No hepatomegaly. No splenomegaly Extremities: No clubbing or cyanosis. Normal muscle strength in the upper and lower extremities Skin: Normal skin turgor with no skin ulcers or lesions noted. Current Medications: Current Medications Sig/Juhi Start time Last Medication Dose Route Stop Time Status Admin Acetaminophen 1,000 MG Q6P PRN 01/16 1000 AC 01/18 N/A 1 UNIT IV 1205 Aspirin Buffered 325 MG DAILY 01/15 0900 AC 01/18 PO 0740 Atorvastatin Calcium 40 MG 1700 01/15 1700 AC 01/18 PO 1637 Ceftriaxone Sodium 1,000 MG DAILY 01/14 2330 DC 01/18 IV 0740 Chlorhexidine 1 GM .STK-MED ONE 01/19 1123 DC Gluconate TOP 01/19 1124 Dextrose/Sodium 1,000 ML Q13H 01/18 1215 DC 01/18 Chloride IV 2234 Diazepam 5 MG TID PRN 01/15 1715 AC PO Epinephrine 3 MG .STK-MED ONE 01/19 1123 DC SC 01/19 1124 Heparin Sodium 5,000 UNIT Q8 01/15 06 AC 01/19 (Porcine) SC 0544 Insulin Detemir 5 UNITS BID 01/15 0900 AC 01/19 SC 1037 Insulin Human Regular 4 UNITS .STK-MED ONE 01/19 0046 DC IV 01/19 0047 Insulin Human Regular 0 Q6 01/18 1230 AC 01/19 SC 1210 Lorazepam 0.5 MG BID PRN 01/15 0900 AC 01/16 PO 01/22 0859 2104 Metoclopramide HCl 20 MG 1/2H B/BREAKF/DINNER 01/18 1630 AC 01/19 IV 1037 Metoprolol Succinate 100 MG DAILY 01/15 0900 AC 01/19 PO 1023 Morphine Sulfate 2 MG Q4-6 PRN PRN 01/18 1230 AC 01/19 IV 1020 Omeprazole 40 MG 1/2H B/BREAKF/DINNER 01/18 1630 DC 01/18 PO 1637 Ondansetron HCl 4 MG Q6P PRN 01/14 2345 AC 01/18 IV 0210 Pantoprazole Sodium 40 MG BID 01/18 2100 AC 01/19 IV 1020 Phenazopyridine HCl 100 MG PC 01/16 1300 AC 01/19 PO 1210 Simethicone 80 MG Q6P PRN 01/15 1645 AC 01/17 PO 0842 Sodium Chloride 10 ML .STK-MED ONE 01/19 1123 DC IV 01/19 1124 Results Last 48 Hrs of Labs/Mics: Laboratory Tests 01/19/18 0705: Anion Gap 7, Estimated GFR 60, BUN/Creatinine Ratio 17.5, CBC w Diff NO MAN DIFF REQ, RBC 3.09 L, MCV 85.6, MCH 27.9, MCHC 32.5 L, RDW 14.4, MPV 9.1, Gran % 74.4, Lymphocytes % 11.3 L, Monocytes % 10.2 H, Eosinophils % 3.8, Basophils % 0.3, Absolute Granulocytes 5.4, Absolute Lymphocytes 0.8 L, Absolute Monocytes 0.7 H, Absolute Eosinophils 0.3, Absolute Basophils 0 01/18/18 0710: Anion Gap 9, Estimated GFR 60, BUN/Creatinine Ratio 24.2, Total Bilirubin 0.3, Direct Bilirubin 0.3, AST 13 L, ALT 19 L, Alkaline Phosphatase 38, Total Protein 5.0 L, Albumin 2.4 L, Amylase < 30 L, Lipase 46, CBC w Diff NO MAN DIFF REQ, RBC 3.69 L, MCV 86.4, MCH 27.9, MCHC 32.3 L, RDW 14.0, MPV 9.1, Gran % 76.9 H, Lymphocytes % 8.5 L, Monocytes % 13.9 H, Eosinophils % 0.6, Basophils % 0.1, Absolute Granulocytes 8.1 H, Absolute Lymphocytes 0.9 L, Absolute Monocytes 1.5 H, Absolute Eosinophils 0.1, Absolute Basophils 0 Assessment/Plan Assessment/Plan 1. Diabetes mellitus 2. 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 Trace pericardial effusion, not hemodynamically significant 4. Pyelonephritis and acute kidney injury secondary to left UPJ stone Plan: * Continue current cardiac medications. * Cardiac risk is acceptable for GI and urologic procedures as needed Continue telemetry? No
[2018-01-19 14:28] VITALS: BP 110/80
--- NOTE | 2018-01-19 15:32 | CT SCAN REPORT ---
EXAMINATION: CTA of the Abdomen and Pelvis INTERPRETING VASCULAR \T\ INTERVENTIONAL RADIOLOGIST: Yuki Brown M.D./Ph.D. CLINICAL INFORMATION: Circumferential ulcers in the zone of the duodenal artery TECHNIQUE: Multiple axial images were obtained through the abdomen and pelvis using a [address] scan. 95 mL of Omnipaque 320 was administered intravenously. Images were evaluated on independent dedicated 3-D workstation and 3-D images were reconstructed with concurrent radiologist supervision and subsequently interpreted. COMPARISON: 01/17/2018, 01/14/2018 DLP: 870.39 mGy-cm. FINDINGS: VASCULAR: 1. Mesenteric arteries: Variant anatomy is seen. The common hepatic artery is replaced off the superior mesenteric artery. The segment 2 hepatic artery is replaced off the left gastric artery. The celiac axis gives rise to the splenic artery and left gastric artery. All arterial branches are patent. The inferior mesenteric artery is quite diminutive and may be occluded. 2. Renal arteries: Single renal arteries bilaterally. The right renal artery demonstrates calcified and noncalcified atherosclerotic plaque at its origin with severe stenosis. Minimal atherosclerotic disease at the origin of the left renal artery which maintains wide patency. 3. Abdominal aorta: Scattered atherosclerotic disease is moderate in severity. There is ectasia of the aorta without aneurysm. The aorta measures up to 2.3 x 2.7 cm in the infrarenal portion. 4. Iliac arteries: Scattered atherosclerotic disease of the visualized iliofemoral systems. Partially imaged bypass graft off the right common femoral artery due to severe superficial femoral artery narrowing which is partially imaged. Moderately severe narrowing at the origin of the left internal iliac artery and left profunda artery. NONVASCULAR: Lung Bases: A 0.6 cm triangular-shaped nodule, anterior right middle lobe, with a thin attachment to the pleural surface, most likely an intrapulmonary lymph node. Coronary artery calcifications. Liver, Gallbladder, And Biliary Tree: The liver is normal in size, shape, and attenuation. No focal hepatic lesion or biliary ductal dilatation is present. The gallbladder is unremarkable with no evidence of radiopaque gallstones, gallbladder wall thickening, or obvious pericholecystic inflammatory changes. Pancreas: Ill-defined hyperenhancing lesion in the tail of the pancreas measuring approximately 1.9 x 1.8 cm. Spleen: Unremarkable. Adrenal Glands: Unremarkable. Kidneys And Ureters: Double J internal ureteral stent within the left urinary collecting system with tips coiling within the left upper pole calyx as well as within the bladder. Moderate nonspecific but symmetric perinephric stranding bilaterally. Similar positioning of the calculus within the left renal pelvis. No left hydronephrosis. No evidence of right hydronephrosis. Small cyst exophytic off the posterior cortex of the left kidney. The right ureter is unremarkable. Bladder: The bladder contains a loculation of gas, likely due to recent instrumentation. The bladder is otherwise unremarkable. Gastrointestinal Tract: Diverticulosis predominantly involving the sigmoid colon without CT evidence of diverticulitis. Well-formed stool is seen throughout the entirety of the colon. The appendix is unremarkable. The stomach is decompressed which limits evaluation. There is circumferential wall thickening of the duodenum. No evidence of bowel obstruction. The inflammation of the duodenum results in soft tissue stranding which tracks into the pelvis with minimal ascites. Abdominal Wall: No significant abdominal wall herniation. Lymph Nodes: No bulky lymphadenopathy within the abdomen or pelvis. Pelvic Viscera: Unremarkable. Osseous Structures: No acute or suspicious osseous abnormality. IMPRESSION: 1. Inflammatory changes surround the duodenum which demonstrates wall thickening and mucosal hyperemia. No periduodenal fluid collection to suggest perforation or abscess at this time; however, gas bubbles are seen extending into the wall consistent with known ulcers. Inflammatory changes tracking into the pelvis with trace pelvic ascites. 2. No CT evidence of mesenteric ischemia. There is variant anatomy of the celiac axis and superior mesenteric artery; however, all branches appear patent and well-perfused. 3. Enhancing mass within the tail of the pancreas. Although this is a nonspecific finding, in this patient with duodenal ulcers, a gastrinoma should be part of the differential diagnosis and malignancy is not excluded. Recommend follow-up with MRI for further evaluation. 4. Left internal ureteral double-J stent with left renal pelvis calculus, unchanged. 5. A 0.6 cm triangular-shaped nodule within the anterior right middle lobe of the lungs is most likely an intrapulmonary lymph node. According to the UPDATED 2017 Fleischner Society recommendations, the advised follow-up imaging for solid nodules < 6 mm is: LOW RISK PATIENT: No routine follow-up. HIGH RISK PATIENT: Optional CT at 12 months. 6. Diverticulosis without CT evidence of diverticulitis. Well-formed stool throughout the colon suggestive of constipation. Clinical correlation requested.
[2018-01-19 22:38] VITALS: BP 132/70
[2018-01-20 06:23] VITALS: BP 130/78
[2018-01-20 08:12] LABS: ABSOLUTE BASOPHIL COUNT 0 /CUMM (0.0-0.2); ABSOLUTE EOSINOPHIL COUNT 0.3 /CUMM (0.0-0.7); ABSOLUTE GRANULOCYTE CT 4.2 /CUMM (1.4-6.5); ABSOLUTE LYMPH COUNT 1.1 /CUMM (1.2-3.4); ABSOLUTE MONOCYTE COUNT 0.5 /CUMM (0.10-0.60); BASOPHIL % 0.5 % (0.0-2.0); EOSINOPHIL % 5.3 % (0-5); GRANULOCYTE % 68.1 % (42.2-75.2); HEMATOCRIT 24.3 % (42-52); MEAN CORPUSCULAR HGB 28.3 PG (27.0-31.0); MEAN CORPUSCULAR HGB CONC 33.1 G/DL (33.0-37.0); MEAN CORPUSCULAR VOLUME 85.4 FL (80.0-94.0); PLATELET COUNT 170 /CUMM (130-400); RBC DISTRIBUTION WIDTH 14.2 % (11.5-14.5); RED BLOOD CELL CT 2.84 /CUMM (4.70-6.10); WHITE BLOOD CELL COUNT 6.1 /CUMM (4.8-10.8)
[2018-01-20 08:30] LABS: PT 13.5 SEC (9.4-12.5); PTT 37 SEC (25-37)
--- NOTE | 2018-01-20 12:36 | Operative Report ---
Operative/Inv Procedure Report Surgery Date: 01/20/18 Name of Procedure: left ureteroscopy with laser lithotripsy and stone extraction with stent replacement. POssible bladder stone lithotripsy Pre-Operative Diagnosis: left renal stone large and bladder stone Post-Operative Diagnosis: renal and ureteral stone Estimated Blood Loss: less than 50ml Surgeon/Locomotive Operator: Artur Khan MD Anesthesia: laryngeal mask airway Drains: 6x26cm stent Specimens: stone fragments Complications: none Condition: stable Operative Indication: left renal stone with colic and bladder stone Operative/Procedure Note Note: 72yo male Fritz Ma with a hx of left renal colic 6 days ago and presented to the ER and found to have an obstructing left UPJO stone on CT scan. He had an urgent stent placed and was found to have a bladder stones as well and pus behind the stone. He continued to have renal colic on the left side so he was scheduled for stone surgery sooner while an inpatient. He was given the risks, benefits and alternatives of ureteroscopy with laser lithotripsy and stone extraction with stent replacement and possible bladder stone lithotripsy. All questions answered. Consent signed and patient was marked. Patient was taken to the operating placed on the operating table in supine position. Timeout was performed. IV antibiotiocs was infused. LMA anesthesia was started and the patient was placed in the dorsal lithotomy position. SCDs was placed bilaterally. He was prepped and draped in the standard sterile fashion. Cystoscopy was performed and the stent was grasped and and removed. cystoscopy was performed again and a solo guidewire was placed up the renal pelvis without difficulty with fluoroscopic guidance. A second safety superstiff wire was then placed with the dual-lumen catheter. This was clamped as a safety wire. A 35 cm ureteral access sheath was then placed first the inner sheath followed by the inner and outer sheath together. This was done without difficulty. Fluoroscopic guidance was used throughout the case. The flexible digital ureteroscope was then placed into the renal pelvis without issue. All the calyces were again examined and the stone was in the renal pelvis. The large stone was fragmented with a 376 laser fiber to smaller fragments. 0 tip nitinol basket was then used to remove the stones. This took considerable time as there were large amounts and difficult to grasp. Smaller fragments that were too small to grasp with the basket were left to be passed by the patient with ingestion of water. There was no sign of injury. Again all the calyces were examined and no large stones were remaining. The stone fragments were sent to pathology. The ureteroscope was removed along with the access sheath and the ureter was examined on the way out. No injury was appreciated. and no other stones were seen. There was a bit of calcified stent material that was removed with the ureteroscope on the way out. The safety wire was then used with the cystoscope to place a 6 x 26 cm Bard ureteral ureteral stent. This was in good position with the proximal end in the renal pelvis and the distal portion in the bladder which was seen fluoroscopically and cystoscopically. There was no bladder stone seen this time. The patient tolerated the procedure well she was transferred to the recovery room stable condition. Findings: left renal stone and ureteral stone Discharge Disposition: PACU
--- NOTE | 2018-01-20 12:44 | PN- Cardiology ---
Subjective Subjective: stable with no new cardiac issues or symptoms Objective Vital Signs and I&Os Vital Signs Date Time Temp Pulse Resp B/P B/P Pulse O2 O2 Flow FiO2 Mean Ox Delivery Rate 01/20 0843 130/80 01/20 0623 97.9 77 20 130/78 95 Room Air 01/20 0000 97 Room Air 01/19 2238 98.9 81 18 132/70 93 Room Air 01/19 1428 97.5 68 18 110/80 97 Room Air Intake & Output 01/20 0000 01/19 1600 01/19 0000 Intake Total 1060 Output Total 275 450 821 543 2835 Balance -275 -450 -750 -350 40 Intake, IV 700 Intake, Oral 360 Number 0 0 Bowel Movements Output, Urine 275 450 187 732 0247 Patient 209 lb Weight Physical Exam: Gen: The patient is in no acute distress HEENT: Normal nose, ears, and oropharynx. Pupils equal bilaterally. Conjunctiva normal. Neck: Supple with no JVD, no masses, and no thyromegaly Lungs: Clear to auscultation with normal respiratory effort Heart: RRR, S1, S2, 2/6 systolic murmur. No peripheral edema, 2+ pulses in the lower extremities bilaterally Abdomen: Soft, nontender, no masses. No hepatomegaly. No splenomegaly Extremities: No clubbing or cyanosis. Normal muscle strength in the upper and lower extremities Skin: Normal skin turgor with no skin ulcers or lesions noted. Current Medications: Current Medications Sig/Juhi Start time Last Medication Dose Route Stop Time Status Admin Acetaminophen 1,000 MG Q6P PRN 01/16 1000 AC 01/18 N/A 1 UNIT IV 1205 Aspirin Buffered 325 MG DAILY 01/15 09 AC 01/18 PO 0740 Atorvastatin Calcium 40 MG 1700 01/15 1700 AC 01/19 PO 1729 Dextrose/Sodium 1,000 ML Q13H 01/19 1245 AC 01/20 Chloride IV 0850 Diazepam 5 MG TID PRN 01/15 1715 AC PO Heparin Sodium 5,000 UNIT Q8 01/15 06 AC 01/19 (Porcine) SC 2226 Insulin Aspart 0 TIDAC 01/19 1700 DC 01/19 SC 01/20 0000 1735 Insulin Detemir 5 UNITS BID 01/15 09 AC 01/20 SC 0842 Insulin Human Regular 2 UNITS .STK-MED ONE 01/20 0047 DC IV 01/20 0048 Insulin Human Regular 4 UNITS .STK-MED ONE 01/20 0036 DC IV 01/20 0037 Insulin Human Regular 0 Q6 01/19 2359 AC 01/20 SC 1223 Insulin Human Regular 0 Q6 01/18 1230 AL 01/19 SC 1210 Lorazepam 0.5 MG BID PRN 01/15 0900 AC 01/16 PO 01/22 0859 2104 Metoclopramide HCl 20 MG 1/2H B/BREAKF/DINNER 01/18 1630 AC 01/20 IV 0607 Metoprolol Succinate 100 MG DAILY 01/15 0900 AC 01/20 PO 0843 Morphine Sulfate 2 MG Q4-6 PRN PRN 01/18 1230 AC 01/20 IV 0405 Ondansetron HCl 4 MG Q6P PRN 01/14 2345 AC 01/18 IV 0210 Pantoprazole Sodium 40 MG BID 01/18 2100 AC 01/20 IV 0843 Phenazopyridine HCl 100 MG PC 01/16 1300 AC 01/20 PO 1222 Polyethylene Glycol 17 GM DAILY PRN 01/19 1245 AC PO Potassium Chloride 40 MEQ ONCE ONE 01/19 1815 DC 01/19 PO 01/19 1816 1834 Senna/Docusate Sodium 2 TAB DAILY PRN 01/19 1245 AC PO Simethicone 80 MG Q6P PRN 01/15 1645 AC 01/17 PO 0842 Sucralfate 1 GM FOUR TIMES A DAY 01/19 2100 AC 01/20 PO 0842 Results Last 48 Hrs of Labs/Mics: Laboratory Tests 01/20/18 0701: Anion Gap 7, Estimated GFR > 60, BUN/Creatinine Ratio 12.7, PT 13.5 H, INR 1.24 H, APTT 37, CBC w Diff NO MAN DIFF REQ, RBC 2.84 L, MCV 85.4, MCH 28.3, MCHC 33.1, RDW 14.2, MPV 9.0, Gran % 68.1, Lymphocytes % 18.1 L, Monocytes % 8.0, Eosinophils % 5.3 H, Basophils % 0.5, Absolute Granulocytes 4.2, Absolute Lymphocytes 1.1 L, Absolute Monocytes 0.5, Absolute Eosinophils 0.3, Absolute Basophils 0 05/03/18 0705: Anion Gap 7, Estimated GFR 60, BUN/Creatinine Ratio 17.5, CBC w Diff NO MAN DIFF REQ, RBC 3.09 L, MCV 85.6, MCH 27.9, MCHC 32.5 L, RDW 14.4, MPV 9.1, Gran % 74.4, Lymphocytes % 11.3 L, Monocytes % 10.2 H, Eosinophils % 3.8, Basophils % 0.3, Absolute Granulocytes 5.4, Absolute Lymphocytes 0.8 L, Absolute Monocytes 0.7 H, Absolute Eosinophils 0.3, Absolute Basophils 0 Assessment/Plan Assessment/Plan 1. Diabetes mellitus 2. 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 Trace pericardial effusion, not hemodynamically significant 4. Pyelonephritis and acute kidney injury secondary to left UPJ stone Plan: * Continue current cardiac medications. * Cardiac risk is acceptable for GI and urologic procedures as needed Continue telemetry? No
--- NOTE | 2018-01-20 13:15 | PN- Housestaff ---
Shaggy MCCOY,Cayetano 01/20/18 1315: Subjective Follow-up For: Left side obstructing stone, s/p stent placement; duodenal ulcers Complaints: no complaints Subjective: I followed up and examined the patient today. He was walking around with physical therapist, not in distress, does not have any complaints. He is currently nothing by mouth for urology procedure later today. He specifically mentions that the liquid medications he has started taking is working to control his discomfort/pain beautifully. Review of Systems Constitutional: Reports: no symptoms. Objective Last 24 Hrs of Vital Signs/I&O Vital Signs Date Time Temp Pulse Resp B/P B/P Pulse O2 O2 Flow FiO2 Mean Ox Delivery Rate 01/20 0843 130/80 01/20 0623 97.9 77 20 130/78 95 Room Air 01/20 0000 97 Room Air 01/19 2238 98.9 81 18 132/70 93 Room Air Intake & Output 01/20 1600 01/20 0800 01/20 0000 Intake Total 800 Output Total 275 450 750 Balance 525 -450 -750 Intake, IV 800 Number 0 0 Bowel Movements Output, Urine 275 450 750 Patient 94.829 kg Weight Physical Exam General Appearance: Alert, Oriented X3, Cooperative, No Acute Distress, overweight Other Physical Findings: Cardiovascular: Regular Rate, Normal S1, Normal S2, No Murmurs Lungs: Clear to Auscultation, Normal Air Movement Abdomen: Normal Bowel Sounds, Soft, Epigastric tenderness decreased, No Masses, CVA tenderness + Left Extremities: No Clubbing, No Cyanosis, No Edema, Normal Pulses Current Medications: Current Medications Sig/Juhi Start time Last Medication Dose Route Stop Time Status Admin Acetaminophen 1,000 MG Q6P PRN 01/16 1000 AC 01/18 N/A 1 UNIT IV 1205 Aspirin Buffered 325 MG DAILY 01/15 0900 AC 01/18 PO 0740 Atorvastatin Calcium 40 MG 1700 01/15 1700 AC 01/19 PO 1729 Dextrose/Sodium 1,000 ML Q13H 01/19 1245 AC 01/20 Chloride IV 0850 Diazepam 5 MG TID PRN 01/15 1715 AC PO Heparin Sodium 5,000 UNIT Q8 01/15 0600 AC 01/19 (Porcine) SC 2226 Insulin Aspart 0 TIDAC 01/19 1700 DC 01/19 SC 01/20 0000 1735 Insulin Detemir 5 UNITS BID 01/15 0900 AC 01/20 SC 0842 Insulin Human Regular 4 UNITS .STK-MED ONE 01/20 0556 DC IV 01/20 0557 Insulin Human Regular 2 UNITS .STK-MED ONE 01/20 0047 DC IV 01/20 0048 Insulin Human Regular 4 UNITS .STK-MED ONE 01/20 0036 DC IV 01/20 0037 Insulin Human Regular 0 Q6 01/19 2359 AC 01/20 SC 1223 Insulin Human Regular 0 Q6 01/18 1230 DC 01/19 SC 1210 Lorazepam 0.5 MG BID PRN 01/15 0900 AC 01/16 PO 01/22 0859 2104 Metoclopramide HCl 20 MG 1/2H B/BREAKF/DINNER 01/18 1630 AC 01/20 IV 0607 Metoprolol Succinate 100 MG DAILY 01/15 0900 AC 01/20 PO 0843 Morphine Sulfate 2 MG Q4-6 PRN PRN 01/18 1230 AC 01/20 IV 0405 Ondansetron HCl 4 MG Q6P PRN 01/14 2345 AC 01/18 IV 0210 Pantoprazole Sodium 40 MG BID 01/18 2100 AC 01/20 IV 0843 Phenazopyridine HCl 100 MG PC 01/16 1300 AC 01/20 PO 1222 Polyethylene Glycol 17 GM DAILY PRN 01/19 1245 AC PO Potassium Chloride 40 MEQ ONCE ONE 01/19 1815 DC 01/19 PO 01/19 1816 1834 Senna/Docusate Sodium 2 TAB DAILY PRN 01/19 1245 AC PO Simethicone 80 MG Q6P PRN 01/15 1645 01/17 PO 0842 Sucralfate 1 GM FOUR TIMES A DAY 01/19 2100 01/20 PO 0842 Last 24 Hrs of Lab/Hernandez Results Last 24 Hrs of Labs/Mics: Laboratory Tests 01/20/18 0701: Anion Gap 7, Estimated GFR > 60, BUN/Creatinine Ratio 12.7, PT 13.5 H, INR 1.24 H, APTT 37, CBC w Diff NO MAN DIFF REQ, RBC 2.84 L, MCV 85.4, MCH 28.3, MCHC 33.1, RDW 14.2, MPV 9.0, Gran % 68.1, Lymphocytes % 18.1 L, Monocytes % 8.0, Eosinophils % 5.3 H, Basophils % 0.5, Absolute Granulocytes 4.2, Absolute Lymphocytes 1.1 L, Absolute Monocytes 0.5, Absolute Eosinophils 0.3, Absolute Basophils 0 Assessment/Plan Assessment: 72 year old male with a PMH hyperlipidemia, hypertension, diabetes, coronary artery disease and gastroesophageal reflux with no history of nephrolithiasis who presented with left flank pain. With complaints of flank and epigastric pain. Pyelonephritis 10 mm left UPJ obstructing stone with mild Left hydronephrosis and perinephric edema, s/p stent. Afebrile, no leukocytosis. Repeat CT scan of abd-pelvis showed DJ stent, resolution of hydronephrosis. Urology procedure later today. Continue to follow Urologoy service recs Continue pyridium for urinary symptoms. Continue ceftriaxone, total 10 day course Abdominal pain, duodenal ulcer EGD showed duodenal ulceration upto third portion, Presbyesophagus, Gastric mucosal atrophy and erosion antrum and prepyloric region, among other findings. With suspicion of vascular compromise, a CT angiogram was suggested. CT angiogram did not show any vascular compromise. Continue Carafate 1 g 3 times a day and at bedtime. Continuing IV PPI twice a day, to be changed to PO on DC Continuing Reglan, Zofran. Diet to be advanced as tolerated after urology procedure tomorrow. New pancreas tail mass Needs further workup. Could be a neuroendocrine tumor, that could contribute to the multiple ulcers that he has. GI referral to follow after discharge. Patient will explained about the condition, and agrees to follow up with GI services. Lung nodule 0.6 cm triangular-shaped nodule within the anterior right middle lobe of the lungs. Likely inflammatory. Can be followed in out pt setting. Patient will explained on this one as well, will get follow-up imaging, and will discuss with PCP after discharge. EPIFANIO with hyperkalemia, resolved Creatinine 2.7 on presentation, now 1.1 Avoid nephrotoxins Trend renal function Would decrease IV fluids as oral intake is better now DM Hold oral hypoglycemics Continue levemir and sliding scale insulin Accuchecks TIDAC while eating CAD Continue aspirin, statin, beta aleida Diabetic diet DVT ppx-heparin 5000 units subcutaneous q8h Full code Problem List: 1. Nephrolithiasis 2. Pyelonephritis 3. Duodenal ulcer 4. Pancreatic mass 5. Lung nodule 6. Duodenitis Pain Ratin Pain Location: epigastric pain decreasing, left flank pain Pain Goal: Pain 4 or less Pain Plan: prn, carafate... Tomorrow's Labs & Rationales: BEP, CBC Erin MCCOY,Artur 01/20/18 2311: Attending MD Review Statement Attending Statement Attending MD Statement: examined this patient, discuss w/resident/PA/PARACHUTE/COMBATANT DIVER OFFICER, agreed w/resident/PA/PARACHUTE/COMBATANT DIVER OFFICER, discussed with family, reviewed EMR data (avail), discussed with nursing, discussed with case mgmt, reviewed images, amended to note Attending Assessment/Plan: The patient was seen x 2 today and discussed with house staff, nursing, case management, and family. Did well with laser stone removal. Plan for discharge tomorrow on Carafate, Protonix po. Follow-up with GI, PCP, Endocrinology, etc. His usual GI MD is Dr. Mason in [place], however initial follow-up will be with Dr. Brush (she should receive H pylori results over next week).
--- NOTE | 2018-01-20 14:59 | Patient Discharge Instructions ---
Discharge Instructions General Discharge Information Special Instructions: .... .... Please follow-up with GI service for duodenal ulcers, and pancreatic mass after discharge. Please follow-up with your primary care physician, and also follow-up regarding your right lung nodule after discharge. Please follow-up with urologist as instructed by her after discharge. Diet Continue normal diet: No Recommended Diet: Diabetic Activity Full Activity/No Limits: No Activity Self Limited: Yes Acute Coronary Syndrome Inclusion Criteria At DC or during hospital stay patient has or had the following: ACS DIAGNOSIS No Discharge Core Measures Meds if any: Prescribed or Continued at Discharge Meds if any: NOT Prescribed or Continued at Discharge Congestive Heart Failure Inclusion Criteria At DC or during hospital stay patient has or had the following: CHF DIAGNOSIS No Discharge Core Measures Meds if any: Prescribed or Continued at Discharge Meds if any: NOT Prescribed or Continued at Discharge Cerebrovascular accident Inclusion Criteria At DC or during hospital stay patient has or had the following: CVA/TIA Diagnosis No Discharge Core Measures Meds if any: Prescribed or Continued at Discharge Meds if any: NOT Prescribed or Continued at Discharge Venous thromboembolism Inclusion Criteria VTE Diagnosis No VTE Type NONE VTE Confirmed by (Test) NONE Discharge Core Measures - Per Current guidelines, there needs to be overlap - treatment for the first 5 days of Warfarin therapy. - If discharged on Warfarin prior to 5 days of - overlap therapy, the patient will need to be - assessed for post discharge needs including - *Post discharge parental anticoagulation - *Warfarin and/or parental anticoagulation education - *Follow up date to check INR post discharge At least 5 days overlap therapy as Inpatient No Meds if any: Prescribed or Continued at Discharge Note: Overlap Therapy is Warfarin and Anticoagulant Meds if any: NOT Prescribed or Continued at Discharge
--- NOTE | 2018-01-20 15:35 | RADIOLOGY REPORT ---
EXAMINATION: CR ABDOMEN/INTRAOPERATIVE FLUOROSCOPY CLINICAL INDICATION: Left ureteroscopy with laser and stent placement. COMPARISON: CT scan of the abdomen and pelvis dated 01/19/2018. TECHNIQUE/FINDINGS: Fluoroscopic equipment was dedicated to the operating room for the performance of an intraoperative procedure. Several (6) spot films were acquired and are archived in PACS. Please refer to operative notes for procedural detail. FLUOROSCOPY TIME: 0.1 minutes. IMPRESSION: Administrative dictation for intraoperative fluoroscopy and image archiving in PACS. Please refer to operative notes for details.
[2018-01-20] MEDS ORDERED: PHENAZOPYRIDIN100 M3 PO (15:41)
[2018-01-20] MEDS ORDERED: PANTOPRAZOLE SO40 M1 PO (15:41)
[2018-01-20] MEDS ORDERED: SUCRALFATE1 GM/10 M1 PO (15:44)
[2018-01-20] MEDS ORDERED: SIMETHICONE80 M1 PO (15:44)
[2018-01-20 22:42] VITALS: BP 140/60
[2018-01-21 06:36] VITALS: BP 162/82
[2018-01-21 08:24] LABS: ABSOLUTE BASOPHIL COUNT 0 /CUMM (0.0-0.2); ABSOLUTE EOSINOPHIL COUNT 0.3 /CUMM (0.0-0.7); ABSOLUTE GRANULOCYTE CT 3.7 /CUMM (1.4-6.5); ABSOLUTE LYMPH COUNT 0.9 /CUMM (1.2-3.4); ABSOLUTE MONOCYTE COUNT 0.6 /CUMM (0.10-0.60); BASOPHIL % 0.3 % (0.0-2.0); EOSINOPHIL % 4.8 % (0-5); GRANULOCYTE % 68.1 % (42.2-75.2); HEMATOCRIT 24.1 % (42-52); MEAN CORPUSCULAR HGB 27.8 PG (27.0-31.0); MEAN CORPUSCULAR HGB CONC 32.9 G/DL (33.0-37.0); MEAN CORPUSCULAR VOLUME 84.6 FL (80.0-94.0); MEAN PLATELET VOLUME 8.2 FL (7.4-10.4); RBC DISTRIBUTION WIDTH 13.8 % (11.5-14.5); RED BLOOD CELL CT 2.85 /CUMM (4.70-6.10); WHITE BLOOD CELL COUNT 5.5 /CUMM (4.8-10.8)
[2018-01-21 08:46] VITALS: BP 162/84
[2018-01-21 09:44] LABS: PLATELET COUNT 195 /CUMM (130-400)
--- NOTE | 2018-01-21 10:12 | PN- Housestaff ---
Niki Nguyen 01/21/18 1012: Subjective Follow-up For: Left side obstructing stone, s/p stent placement; duodenal ulcers Subjective: Patient is seen and examined this morning, lying comfortably in the bed reported slight nasal bleed(history of nasal bleed), otherwise vitals are stable, if patient remained stable will discharge the patient home He specifically mentions that the liquid medications he has started taking is working to control his discomfort/pain beautifully. Review of Systems Constitutional: Denies: chills, diaphoresis, fever. EENTM: Denies: blurred vision, double vision, visual changes. Cardiovascular: Denies: chest pain, edema, orthopena. Respiratory: Denies: hemoptysis, orthopnea. Gastrointestinal: Denies: bloating. Musculoskeletal: Denies: back pain, gout. Objective Last 24 Hrs of Vital Signs/I&O Vital Signs Date Time Temp Pulse Resp B/P B/P Pulse O2 O2 Flow FiO2 Mean Ox Delivery Rate 01/21 0846 162/84 01/21 0636 99.0 82 18 162/82 95 Room Air 01/20 2242 98.3 87 20 140/60 95 Room Air Intake & Output 01/21 1600 01/21 0800 01/21 0000 Intake Total 380 300 Output Total 1300 1000 Balance -920 -700 Intake, IV 30 20 Intake, Oral 350 280 Output, Urine 1300 1000 Physical Exam General Appearance: Alert, Oriented X3 Skin: No Rashes, No Breakdown Skin Temp/Moisture Exam: Warm/Dry Neck: Supple, No JVD Cardiovascular: Regular Rate, Normal S1, Normal S2 Lungs: Clear to Auscultation Abdomen: Normal Bowel Sounds, Soft, No Tenderness Neurological: Normal Gait, Normal Speech Extremities: No Clubbing, No Cyanosis Current Medications: Current Medications Sig/Juhi Start time Last Medication Dose Route Stop Time Status Admin Acetaminophen 1,000 MG Q6P PRN 01/16 1000 AC 01/18 N/A 1 UNIT IV 1205 Aspirin Buffered 325 MG DAILY 01/15 0900 AC 01/18 PO 0740 Atorvastatin Calcium 40 MG 1700 01/15 1700 AC 01/20 PO 1736 Dextrose/Sodium 1,000 ML Q13H 01/19 1245 DC 01/20 Chloride IV 0850 Diazepam 5 MG TID PRN 01/15 1715 AC PO Fentanyl Citrate 250 MCG .STK-MED ONE 01/20 1356 DC IM 01/20 1357 Heparin Sodium 5,000 UNIT Q8 01/15 06 AC 01/21 (Porcine) SC 06 Insulin Aspart 0 TIDAC 01/21 08 AC SC Insulin Detemir 5 UNITS BID 01/15 0900 AC 01/21 SC 0846 Insulin Human Regular 4 UNITS .STK-MED ONE 01/20 1219 DC IV 01/20 1220 Insulin Human Regular 0 Q6 01/19 2359 DC 01/20 SC 1223 Lorazepam 0.5 MG BID PRN 01/15 0900 AC 01/16 PO 01/22 0859 2104 Metoclopramide HCl 20 MG 1/2H B/BREAKF/DINNER 01/18 1630 AC 01/21 IV 0605 Metoprolol Succinate 100 MG DAILY 01/15 0900 AC 01/21 PO 0846 Morphine Sulfate 2 MG Q4-6 PRN PRN 01/18 1230 AC 01/20 IV 0405 Ondansetron HCl 4 MG Q6P PRN 01/14 2345 AC 01/18 IV 0210 Pantoprazole Sodium 40 MG BID 01/18 2100 AC 01/21 IV 0843 Phenazopyridine HCl 100 MG PC 01/16 1300 AC 01/21 PO 0846 Polyethylene Glycol 17 GM DAILY PRN 01/19 1245 AC PO Senna/Docusate Sodium 2 TAB DAILY PRN 01/19 1245 AC PO Simethicone 80 MG Q6P PRN 01/15 1645 AC 01/17 PO 0842 Sucralfate 1 GM FOUR TIMES A DAY 01/19 2100 AC 01/21 PO 0846 Last 24 Hrs of Lab/Hernandez Results Last 24 Hrs of Labs/Mics: Laboratory Tests 01/21/18 0725: Anion Gap 9, Estimated GFR 54 L, BUN/Creatinine Ratio 8.5, CBC w Diff NO MAN DIFF REQ, RBC 2.85 L, MCV 84.6, MCH 27.8, MCHC 32.9 L, RDW 13.8, MPV 8.2, Gran % 68.1, Lymphocytes % 16.3 L, Monocytes % 10.5 H, Eosinophils % 4.8, Basophils % 0.3, Absolute Granulocytes 3.7, Absolute Lymphocytes 0.9 L, Absolute Monocytes 0.6, Absolute Eosinophils 0.3, Absolute Basophils 0 Assessment/Plan Assessment: 72 year old male with a PMH hyperlipidemia, hypertension, diabetes, coronary artery disease and gastroesophageal reflux with no history of nephrolithiasis who presented with left flank pain. With complaints of flank and epigastric pain. Severe left flank pain(Left hydronephrosis and perinephric sara)-s/p nephrolithiasis therapy by laser 10 mm left UPJ obstructing stone with mild Left hydronephrosis and perinephric edema, s/p stent. Afebrile, no leukocytosis. Repeat CT scan of abd-pelvis showed DJ stent, resolution of hydronephrosis. If patient remains stable will be discharged home with follow-up with urology as an outpatient, will continue Pyridium for urinary complaints Abdominal pain, duodenal ulcer EGD showed duodenal ulceration upto third portion, Presbyesophagus, Gastric mucosal atrophy and erosion antrum and prepyloric region, among other findings. With suspicion of vascular compromise, a CT angiogram was suggested.CT angiogram did not show any vascular compromise . Continue Carafate 1 g 3 times a day and at bedtime. Patient has been transitioned to by mouth Protonix New pancreas tail mass Needs further workup. Could be a neuroendocrine tumor, that could contribute to the multiple ulcers that he has. GI referral to follow after discharge. Patient will explained about the condition, and agrees to follow up with GI services. Lung nodule 0.6 cm triangular-shaped nodule within the anterior right middle lobe of the lungs. Likely inflammatory. Can be followed in out pt setting. Patient will explained on this one as well, will get follow-up imaging, and will discuss with PCP after discharge. EPIFANIO with hyperkalemia, resolved Creatinine today slightly elevated 1.3 from 1.1, patient has been encouraged to drink fluids. Will give one bag of normal saline 500 mL before the discharge patient has been advised to get BP checked within 1 week after discharge. DM Resume oral Hypoglycemics , continue Levemir on discharge CAD Continue aspirin, statin, beta aleida Diabetic diet DVT ppx-heparin 5000 units subcutaneous q8h Full code Problem List: 1. Nephrolithiasis 2. Acute kidney injury 3. Hyperkalemia Pain Ratin Pain Location: No pain at this timeat this time. Pain Goal: Pain 4 or less Pain Plan: prn Tylenol Tomorrow's Labs & Rationales: No need of labs as patient will be discharged today Efraín Dunaway MD 01/21/18 1024: Attending MD Review Statement Attending Statement Attending MD Statement: examined this patient, discuss w/resident/PA/SCAFFOLDER, agreed w/resident/PA/SCAFFOLDER, discussed with family, reviewed EMR data (avail), discussed with nursing, discussed with case mgmt, reviewed images, amended to note Attending Assessment/Plan: Efraín Stevens M.D. have examined this patient, reviewed available EMR data, personally reviewed images, discussed with resident/PA/SCAFFOLDER, discussed management plan with housestaff and nursing staff, discussed managment plan all of healthcare providers, discussed management plan with patient and/or family, agreed with resident/PA/SCAFFOLDER. The past history and parts of the chart have been autopopulated. Impression 72 year old man * s/p nephrolithiasis therapy by laser * lung nodule * pancreatic mass Plan -awaiting discharge with paperwork previously completed -he is afebrile without any new events other than a spontaneous (frequent) nose bleed, that resolved overnight -he is stable for discharge today with follow up as deliniated in the CMR and discharge summary -he will f/u with GI for pancreatic mass -regarding his 6mm RML nodule - this should be followed on an outpatient basis - please ensure that his PMD recieves this information
[2018-01-21] MEDS ORDERED: SUCRALFATE1 GM/10 M1 PO ×2 (11:42→11:44)
[2018-01-21] MEDS ORDERED: SIMETHICONE80 M1 PO (11:44)
[2018-01-21] MEDS ORDERED: PANTOPRAZOLE SO40 M1 PO (11:44)
[2018-01-21] MEDS ORDERED: PHENAZOPYRIDIN100 M3 PO (11:44)
--- NOTE | 2018-01-21 13:10 | PN- Gastroenterology ---
Assessment/Plan GI Assessment/Recommendations: 1. Ulcerative duodenitis. CTA demonstrates normal vasculature, especially celiac axis (aside from anatomic variance). The patient is now asymptomatic on PPI and sucralfate. Biopsies are unrevealing as to etiology. 2. Anemia, stable 3. Pancreatic lesion on CT scan Recommendations: * The patient is being discharged; he will need careful follow-up with either Dr. Ellison or his usual whiskey regauger Dr. Mason. * Continue PPI and sucralfate * Outpatient fasting gastrin level * Outpatient follow-up of pancreatic lesion Subjective Subjective: Denies abdominal pain, nausea, distention. No postprandial symptoms. Objective Vital Signs and I&Os Vital Signs Date Time Temp Pulse Resp B/P B/P Pulse O2 O2 Flow FiO2 Mean Ox Delivery Rate 01/21 0846 162/84 01/21 0636 99.0 82 18 162/82 95 Room Air 01/20 2242 98.3 87 20 140/60 95 Room Air Intake & Output 01/21 1600 01/21 0400 01/20 1600 01/20 0400 01/19 1600 01/19 0400 Intake Total 380 911 862 0987 Output Total 1300 1000 725 395 548 2057 Balance -920 -700 75 -750 -350 40 Intake, IV 30 20 800 700 Intake, Oral 350 280 360 Number 0 0 Bowel Movements Output, Urine 1300 1000 725 126 391 7204 Patient 209 lb Weight Physical Exam: Abdomen soft, nondistended, nontender. Current Medications: Current Medications Sig/Juhi Start time Last Medication Dose Route Stop Time Status Admin Acetaminophen 1,000 MG Q6P PRN 01/16 1000 DCD 01/18 N/A 1 UNIT IV 1205 Aspirin Buffered 325 MG DAILY 01/15 0900 DCD 01/18 PO 0740 Atorvastatin Calcium 40 MG 1700 01/15 1700 DCD 01/20 PO 1736 Dextrose/Sodium 1,000 ML Q13H 01/19 1245 DC 01/20 Chloride IV 0850 Diazepam 5 MG TID PRN 01/15 1715 DCD PO Fentanyl Citrate 250 MCG .STK-MED ONE 01/20 1356 DC IM 01/20 1357 Heparin Sodium 5,000 UNIT Q8 01/15 0600 DCD 01/21 (Porcine) SC 0605 Insulin Aspart 0 TIDAC 01/21 0800 DCD SC Insulin Detemir 5 UNITS BID 01/15 0900 DCD 01/21 SC 0846 Insulin Human Regular 0 Q6 01/19 2359 DC 01/20 SC 1223 Lorazepam 0.5 MG BID PRN 01/15 0900 DCD 01/16 PO 01/22 0859 2104 Metoclopramide HCl 20 MG 1/2H B/BREAKF/DINNER 01/18 1630 DCD 01/21 IV 0605 Metoprolol Succinate 100 MG DAILY 01/15 0900 DCD 01/21 PO 0846 Morphine Sulfate 2 MG Q4-6 PRN PRN 01/18 1230 DCD 01/20 IV 0405 Ondansetron HCl 4 MG Q6P PRN 01/14 2345 DCD 01/18 IV 0210 Pantoprazole Sodium 40 MG BID 01/18 2100 DCD 01/21 IV 0843 Phenazopyridine HCl 100 MG PC 01/16 1300 DCD 01/21 PO 0846 Polyethylene Glycol 17 GM DAILY PRN 01/19 1245 DCD PO Senna/Docusate Sodium 2 TAB DAILY PRN 01/19 1245 DCD PO Simethicone 80 MG Q6P PRN 01/15 1645 DCD 01/17 PO 0842 Sodium Chloride 500 ML BOLUS ONE 01/21 1130 DCD 01/21 IV 01/21 1629 1212 Sucralfate 1 GM FOUR TIMES A DAY 01/19 2100 DCD 01/21 PO 0846 Results Pertinent Lab Results: Laboratory Tests 01/21 01/20 0725 0701 Chemistry Sodium (137 - 145 mmol/L) 140 137 Potassium (3.5 - 5.1 mmol/L) 3.8 3.5 Chloride (98 - 107 mmol/L) 109 H 109 H Carbon Dioxide (22 - 30 mmol/L) 22 21 L Anion Gap (5 - 16) 9 7 BUN (9 - 20 mg/dL) 11 14 Creatinine (0.7 - 1.2 mg/dL) 1.3 H 1.1 Estimated GFR (>60 ml/min) 54 L > 60 BUN/Creatinine Ratio (7 - 25 %) 8.5 12.7 Coagulation PT (9.4 - 12.5 SEC) 13.5 H INR (0.90 - 1.17) 1.24 H APTT (25 - 37 SEC) 37 Hematology CBC w Diff NO MAN DIFF REQ NO MAN DIFF REQ WBC (4.8 - 10.8 /CUMM) 5.5 6.1 RBC (4.70 - 6.10 /CUMM) 2.85 L 2.84 L Hgb (14.0 - 18.0 G/DL) 7.9 L 8.0 L Hct (42 - 52 %) 24.1 L 24.3 L MCV (80.0 - 94.0 FL) 84.6 85.4 MCH (27.0 - 31.0 PG) 27.8 28.3 MCHC (33.0 - 37.0 G/DL) 32.9 L 33.1 RDW (11.5 - 14.5 %) 13.8 14.2 Plt Count (130 - 400 /CUMM) 195 170 MPV (7.4 - 10.4 FL) 8.2 9.0 Gran % (42.2 - 75.2 %) 68.1 68.1 Lymphocytes % (20.5 - 51.1 %) 16.3 L 18.1 L Monocytes % (1.7 - 9.3 %) 10.5 H 8.0 Eosinophils % (0 - 5 %) 4.8 5.3 H Basophils % (0.0 - 2.0 %) 0.3 0.5 Absolute Granulocytes (1.4 - 6.5 /CUMM) 3.7 4.2 Absolute Lymphocytes (1.2 - 3.4 /CUMM) 0.9 L 1.1 L Absolute Monocytes (0.10 - 0.60 /CUMM) 0.6 0.5 Absolute Eosinophils (0.0 - 0.7 /CUMM) 0.3 0.3 Absolute Basophils (0.0 - 0.2 /CUMM) 0 0 05/03 0705 Chemistry Sodium (137 - 145 mmol/L) 136 L Potassium (3.5 - 5.1 mmol/L) 3.3 L Chloride (98 - 107 mmol/L) 109 H Carbon Dioxide (22 - 30 mmol/L) 20 L Anion Gap (5 - 16) 7 BUN (9 - 20 mg/dL) 21 H Creatinine (0.7 - 1.2 mg/dL) 1.2 Estimated GFR (>60 ml/min) 60 BUN/Creatinine Ratio (7 - 25 %) 17.5 Hematology CBC w Diff NO MAN DIFF REQ WBC (4.8 - 10.8 /CUMM) 7.2 RBC (4.70 - 6.10 /CUMM) 3.09 L Hgb (14.0 - 18.0 G/DL) 8.6 L Hct (42 - 52 %) 26.5 L MCV (80.0 - 94.0 FL) 85.6 MCH (27.0 - 31.0 PG) 27.9 MCHC (33.0 - 37.0 G/DL) 32.5 L RDW (11.5 - 14.5 %) 14.4 Plt Count (130 - 400 /CUMM) 154 MPV (7.4 - 10.4 FL) 9.1 Gran % (42.2 - 75.2 %) 74.4 Lymphocytes % (20.5 - 51.1 %) 11.3 L Monocytes % (1.7 - 9.3 %) 10.2 H Eosinophils % (0 - 5 %) 3.8 Basophils % (0.0 - 2.0 %) 0.3 Absolute Granulocytes (1.4 - 6.5 /CUMM) 5.4 Absolute Lymphocytes (1.2 - 3.4 /CUMM) 0.8 L Absolute Monocytes (0.10 - 0.60 /CUMM) 0.7 H Absolute Eosinophils (0.0 - 0.7 /CUMM) 0.3 Absolute Basophils (0.0 - 0.2 /CUMM) 0 Imaging/Other Studies: CT scan of the abdomen and pelvis with IV contrast/CTA: IMPRESSION: 1. Inflammatory changes surround the duodenum which demonstrates wall thickening and mucosal hyperemia. No periduodenal fluid collection to suggest perforation or abscess at this time; however, gas bubbles are seen extending into the wall consistent with known ulcers. Inflammatory changes tracking into the pelvis with trace pelvic ascites. 2. No CT evidence of mesenteric ischemia. There is variant anatomy of the celiac axis and superior mesenteric artery; however, all branches appear patent and well-perfused. 3. Enhancing mass within the tail of the pancreas. Although this is a nonspecific finding, in this patient with duodenal ulcers, a gastrinoma should be part of the differential diagnosis and malignancy is not excluded. Recommend follow-up with MRI for further evaluation. 4. Left internal ureteral double-J stent with left renal pelvis calculus, unchanged. 5. A 0.6 cm triangular-shaped nodule within the anterior right middle lobe of the lungs is most likely an intrapulmonary lymph node. According to the UPDATED 2017 Fleischner Society recommendations, the advised follow-up imaging for solid nodules < 6 mm is: LOW RISK PATIENT: No routine follow-up. HIGH RISK PATIENT: Optional CT at 12 months. 6. Diverticulosis without CT evidence of diverticulitis. Well-formed stool throughout the colon suggestive of constipation. Clinical correlation requested.
--- NOTE | 2018-01-22 08:00 | Discharge Summary ---
Visit Information Visit Dates Admission Date: 01/16/18 Discharge Date: 01/21/18 Hospital Course Course Attending Physician: Artur Khan MD Primary Care Physician: Karri Martinez DO [facility] [place] Course: 72 year old male with a H hyperlipidemia, hypertension, diabetes, coronary artery disease and gastroesophageal reflux disease, lung nodule presented with left flank pain, underwent left ureteroscopy on 01/14/18 with stent placement, during which urologist found 1 cm UPJ stone obstructing at, with pus behind it. Patient was then transferred to medical service for possible pyelonephritis. Patient received IV antibiotics, was never febrile, did not have leukocytosis, and later underwent left ureteroscopy with laser lithotripsy and stone extraction with stent replacement on 01/20/18. Urine culture was negative too. Patient had severe epigastric pain while he was admitted which was new to him. Amylase, lipase, LFT were normal, and GI was consulted, who did a EGD demonstrating duodenal ulceration upto third portion, Presbyesophagus, Gastric mucosal atrophy and erosion antrum and prepyloric region, among other findings. With suspicion of vascular compromise, a CT angiogram was suggested. CT angiogram did not show any vascular compromise. Patient was prescribed PO Carafate, IV PPI, Reglan IV, and PRN Zofran. Patient's clinical condition/pain improved significantly after the meds. Newly reported pancreatic tail mass was noted in CT, which will reuire further workup. This could be a neuroendocrine tumor, that could contribute to the multiple ulcers that he has. Patient has to follow up with GI service for this as well. Of note, patient and his seem aware of lung nodule. This could be inflammatory among other differentials, but needs to be followed/worked-up as an out patient. Patient also presented with acute kidney injury with hyperkalemia, both of which resolved during his stay. Rest of his medications were continued. Allergies: Coded Allergies: No Known Allergies (03/12/16) Significant Procedures: # Left ureteroscopy with stent placement on 01/14/[address] Crawley. # Left ureteroscopy with laser lithotripsy and stone extraction with stent replacement on 01/20/[address] Crawley. #EGD on 01/19/[address] Ellison. Pertinent Lab Results: Laboratory Tests 01/21 01/20 0725 0701 Chemistry Sodium (137 - 145 mmol/L) 140 137 Potassium (3.5 - 5.1 mmol/L) 3.8 3.5 Chloride (98 - 107 mmol/L) 109 H 109 H Carbon Dioxide (22 - 30 mmol/L) 22 21 L Anion Gap (5 - 16) 9 7 BUN (9 - 20 mg/dL) 11 14 Creatinine (0.7 - 1.2 mg/dL) 1.3 H 1.1 Estimated GFR (>60 ml/min) 54 L > 60 BUN/Creatinine Ratio (7 - 25 %) 8.5 12.7 Coagulation PT (9.4 - 12.5 SEC) 13.5 H INR (0.90 - 1.17) 1.24 H APTT (25 - 37 SEC) 37 Hematology CBC w Diff NO MAN DIFF REQ NO MAN DIFF REQ WBC (4.8 - 10.8 /CUMM) 5.5 6.1 RBC (4.70 - 6.10 /CUMM) 2.85 L 2.84 L Hgb (14.0 - 18.0 G/DL) 7.9 L 8.0 L Hct (42 - 52 %) 24.1 L 24.3 L MCV (80.0 - 94.0 FL) 84.6 85.4 MCH (27.0 - 31.0 PG) 27.8 28.3 MCHC (33.0 - 37.0 G/DL) 32.9 L 33.1 RDW (11.5 - 14.5 %) 13.8 14.2 Plt Count (130 - 400 /CUMM) 195 170 MPV (7.4 - 10.4 FL) 8.2 9.0 Gran % (42.2 - 75.2 %) 68.1 68.1 Lymphocytes % (20.5 - 51.1 %) 16.3 L 18.1 L Monocytes % (1.7 - 9.3 %) 10.5 H 8.0 Eosinophils % (0 - 5 %) 4.8 5.3 H Basophils % (0.0 - 2.0 %) 0.3 0.5 Absolute Granulocytes (1.4 - 6.5 /CUMM) 3.7 4.2 Absolute Lymphocytes (1.2 - 3.4 /CUMM) 0.9 L 1.1 L Absolute Monocytes (0.10 - 0.60 /CUMM) 0.6 0.5 Absolute Eosinophils (0.0 - 0.7 /CUMM) 0.3 0.3 Absolute Basophils (0.0 - 0.2 /CUMM) 0 0 Echo: CONCLUSIONS Normal size left ventricle. Mild to moderate LVH with proximal septal thickening. Abnormal relaxation filling pattern of the left ventricle for age (stage 1 diastolic dysfunction). Moderate LVOT obstruction with systolic anterior motion of the mitral valve. Normal left ventricular ejection fraction visually estimated at > 55%. Mild aortic regurgitation. Mild to moderate aortic stenosis. Trace pulmonic regurgitation. 4.0 cm dilated aortic root. Ascending aorta diameter 3.5 cm. Trace pericardial effusion. Alexander Gauthier M.D. (Electronically Signed) Final Date: 17 Jan 2018 12:07 CTA abd/pelvis: IMPRESSION: 1. Inflammatory changes surround the duodenum which demonstrates wall thickening and mucosal hyperemia. No periduodenal fluid collection to suggest perforation or abscess at this time; however, gas bubbles are seen extending into the wall consistent with known ulcers. Inflammatory changes tracking into the pelvis with trace pelvic ascites. 2. No CT evidence of mesenteric ischemia. There is variant anatomy of the celiac axis and superior mesenteric artery; however, all branches appear patent and well-perfused. 3. Enhancing mass within the tail of the pancreas. Although this is a nonspecific finding, in this patient with duodenal ulcers, a gastrinoma should be part of the differential diagnosis and malignancy is not excluded. Recommend follow-up with MRI for further evaluation. 4. Left internal ureteral double-J stent with left renal pelvis calculus, unchanged. 5. A 0.6 cm triangular-shaped nodule within the anterior right middle lobe of the lungs is most likely an intrapulmonary lymph node. According to the UPDATED 2017 Fleischner Society recommendations, the advised follow-up imaging for solid nodules < 6 mm is: LOW RISK PATIENT: No routine follow-up. HIGH RISK PATIENT: Optional CT at 12 months. 6. Diverticulosis without CT evidence of diverticulitis. Well-formed stool throughout the colon suggestive of constipation. Clinical correlation requested. DICTATED BY: Yuki Brown MD DATE/TIME DICTATED:01/19/181431 PRODUCE SPECIALIST:RODY DATE/TIME TRANSCRIBED:01/19/181431 EGD on 01/19/18: Impression: 1. Circumferential ulceration along folds extending from the duodenal bulb down through the third portion of the duodenum 2. One ulcer with stigmata of bleeding in the third portion of the duodenum 3. Three, almost circumferential 8 mm ulcers with eschar at GE junction/cardia 4. Nodularity gastric body and fundus 5. Presbyesophagus 6. Gastric mucosal atrophy and erosion antrum and prepyloric region Given segmental distribution of ulceration as well as circumferential nature of ulcers within the duodenum as well as acute onset of changes, I'm concerned that they represent an ischemic event. Disposition Summary Disposition Principal Diagnosis: Left-sided hydronephrosis, secondary to nephrolithiasis; Acute kidney injury; Duodenal ulcer; Pancreas tail mass. Additional Diagnosis: hyperlipidemia, hypertension, diabetes, coronary artery disease, gastroesophageal reflux disease, lung nodule Discharge Disposition: home health services Discharge Instructions General Discharge Information Code Status: Full Code Patient's Diet: Diabetic diet Patient's Activity: As tolerated Follow-Up Instructions/Appts: Please follow-up with GI service for duodenal ulcers, and pancreatic mass after discharge. Please follow-up with your primary care physician, and also follow-up regarding your right lung nodule after discharge. Please follow-up with urologist as instructed by her after discharge. Medications at Discharge Discharge Medications: Continue taking these medications: Metoprolol Succinate (Metoprolol Succinate) 100 MG TAB.ER.24H 1 Tablet ORAL DAILY Qty = 90 Comments: Last Taken: 01/21/18 Time: 845AM Metformin HCl (Metformin HCl ER) 750 MG TAB.ER.24H 2 Tablet ORAL Every night Qty = 180 Comments: NOT GIVEN Insulin Detemir (Levemir) 100 UNIT/1 ML VIAL 10 Units Inject into fatty tissue Every Morning Comments: Last Taken: 12/22/17 Time: 845AM Insulin Aspart (Novolog) 100 UNIT/1 ML VIAL Units Inject into fatty tissue BEFORE MEALS AND AT BEDTIME Comments: NOT GIVEN Metoclopramide HCl (Reglan) 10 MG TABLET 1 Tablet ORAL TWICE DAILY Qty = 180 Instructions: 30 minutes before meals and bedtime Comments: Last Taken: 01/21/18 Time: 600AM Atorvastatin Calcium (Atorvastatin Calcium) 80 MG TABLET 0.5 Tablet ORAL DAILY Qty = 90 Comments: Last Taken: 12/21/17 Time: 530PM Levalbuterol Tartrate (Xopenex Hfa) 15 GM HFA.AER.AD 2 Puff Inhale through mouth as needed for COPD Qty = 15 Comments: NOT GIVEN Lorazepam (Lorazepam) 0.5 MG TABLET 1 Tablet ORAL 2 x Daily as needed as needed for SLEEP Qty = 60 Comments: Last Taken: 01/16/18 Time: 900PM Zolpidem Tartrate (Zolpidem Tartrate) 10 MG TABLET 1 Tablet ORAL Every night as needed Qty = 90 Comments: NOT GIVEN Aspirin (Ecotrin*) 325 MG TABLET.DR 1 Tablet ORAL DAILY Comments: Last Taken: 01/18/18 Time: 740AM Budesonide/Formoterol Fumarate (Symbicort 160-4.5 Mcg Inhaler) 10.2 GM HFA.AER.AD 2 Puff Inhale through mouth TWICE DAILY Comments: NOT GIVEN Calcium Polycarbophil (Fibercon) 625 MG TABLET 1 Tablet ORAL DAILY Comments: NOT GIVEN Start taking the following new medications: Phenazopyridine HCl (Phenazopyridine HCl) 100 MG TABLET 100 Milligram ORAL AFTER MEALS Qty = 10 No Refills Instructions: . Comments: Last Taken: 01/21/18 Time: 845AM Pantoprazole Sodium (Pantoprazole Sodium) 40 MG TABLET.DR 1 Tablet ORAL TWICE DAILY Qty = 60 No Refills Instructions: . Comments: Last Taken: 01/21/18 Time: 845AM IV FORM GIVEN Sucralfate (Sucralfate) 1 GRAM/10 ML ORAL.SUSP 1 Gram ORAL 4 TIMES A DAY Qty = 10 Refills = 2 Instructions: .. Comments: .Last Taken: 01/21/18 Time: 845AM Simethicone (Simethicone) 80 MG TAB.CHEW 80 Milligram ORAL EVERY SIX HOURS NEEDED as needed for GAS Qty = 10 No Refills Instructions: . Comments: Last Taken: 01/17/18 Time: 845AM Copies To: Misbah MCCOY,Susan; Karri Martinez DO; Scot MCCOY,Vivian Attending MD Review Statement Documenting Attending: Artur Khan MD Other Findings: The patient was seen by Dr. Dunaway the last day of hospital stay. The patient will need follow-up with GI, Urology, & PCP as noted. I last saw him the day prior to discharge and he was doing well.
== END 2018-01-21 12:29 | disposition home health service (06) | DRG 668 ==
LOC: ERH 11:38 → PACUH 20:38 → 2NA 20:38 → ENRESERV 20:54 → EDBEDREQ 22:33 → 1NO 22:51 → ENTRNSPT 01-15 20:25 → EDTRNSPTSTS 01-15 20:28 → 2NA 01-15 20:43 → CMPTRNSPT 01-15 21:08 → 2NA 01-16 09:52 → ENTRNSPT 01-20 16:28 → EDTRNSPT 01-20 16:33 → EDTRNSPTSTS 01-20 16:33 → CMPTRNSPT 01-20 16:54 → ENPENDDIS 01-21 10:39 → 2NA 01-21 12:29
PROVIDERS: Physician Assistant Medical; Preventive Medicine Public Health & General Preventive Medicine; Student in an Organized Health Care Education/Training Program
PROC: 0T778DZ Dilation of Left Ureter with Intraluminal Device, Via Natural or Artificial Opening Endoscopic (ICD-10-PCS; principal; 2018-01-14)
PROC: 0DB68ZX Excision of Stomach, Via Natural or Artificial Opening Endoscopic, Diagnostic (ICD-10-PCS; 2018-01-19)
PROC: 0DB98ZX Excision of Duodenum, Via Natural or Artificial Opening Endoscopic, Diagnostic (ICD-10-PCS; 2018-01-19)
PROC: 0W3P8ZZ Control Bleeding in Gastrointestinal Tract, Via Natural or Artificial Opening Endoscopic (ICD-10-PCS; 2018-01-19)
PROC: 0T778DZ Dilation of Left Ureter with Intraluminal Device, Via Natural or Artificial Opening Endoscopic (ICD-10-PCS; 2018-01-20)
PROC: 0TC48ZZ Extirpation of Matter from Left Kidney Pelvis, Via Natural or Artificial Opening Endoscopic (ICD-10-PCS; 2018-01-20)
DX: N13.6 Pyonephrosis (principal); K26.4 Chronic or unspecified duodenal ulcer with hemorrhage; N17.9 Acute kidney failure, unspecified; E87.5 Hyperkalemia; I42.1 Obstructive hypertrophic cardiomyopathy; K31.84 Gastroparesis; K86.89 Other specified diseases of pancreas; J44.9 Chronic obstructive pulmonary disease, unspecified; E11.43 Type 2 diabetes mellitus with diabetic autonomic (poly)neuropathy; E86.0 Dehydration; K25.9 Gastric ulcer, unspecified as acute or chronic, without hemorrhage or perforation; E78.5 Hyperlipidemia, unspecified; I25.10 Atherosclerotic heart disease of native coronary artery without angina pectoris; I12.9 Hypertensive chronic kidney disease with stage 1 through stage 4 chronic kidney disease, or unspecified chronic kidney disease; E11.22 Type 2 diabetes mellitus with diabetic chronic kidney disease; N18.3 Chronic kidney disease, stage 3 (moderate); K21.9 Gastro-esophageal reflux disease without esophagitis; N21.0 Calculus in bladder; K29.80 Duodenitis without bleeding; G25.81 Restless legs syndrome; N32.89 Other specified disorders of bladder; E78.00 Pure hypercholesterolemia, unspecified; R91.1 Solitary pulmonary nodule; I73.9 Peripheral vascular disease, unspecified; Z79.4 Long term (current) use of insulin; Z87.891 Personal history of nicotine dependence; Z86.010 Personal history of colon polyps
CPT/HCPCS: 2NAP; 2NASP; 36415; 36592; 74018; 74174; 74176; 81001; 82355; 82436; 87040; 87086; 88305; 88312; 93005; 93010; 93306; 96361; 96372; 96374; 96375; 97116-GO; 97161-GP; 97530-GO; C2617; J0131; J0171; J0360; J0610; J0690; J0696; J1644; J1815; J1885; J2405; J2765; J3010; J3101; J7040; J7042; J7508